=== PATIENT | female | born 1975 | race Caucasian/White ===

== ENCOUNTER → 2021-03-13 13:42 | Outpatient (CLI) | payer BC, SELFPAY ==
--- NOTE | ~2021-03-13 | MM_ITS ---
EXAMINATION: MM screening crissy BI w izabela HISTORY: Screening TECHNIQUE: Craniocaudal and mediolateral oblique 3-D tomosynthesis images were obtained and synthetic 2-D images were generated. CAD analysis was submitted and interpreted. COMPARISON: Comparison to multiple prior studies sequentially, with oldest reviewed study dated 07/10. BREAST PARENCHYMAL COMPOSITION: The breasts are heterogeneously dense, which may obscure small masses . FINDINGS: There is no evidence of suspicious mass, calcification, or architectural distortion to sugg est malignancy in either breast. There has been no suspicious interval change. IMPRESSION: 1. No mammographic evidence of malignancy. 2. Recommend routine screening mammography in one year. BI-RADS Category 1: Negative Reviewed, dictated and finalized at location A.
== END ==
DX: Z12.31 Encounter for screening mammogram for malignant neoplasm of breast (principal)
CPT/HCPCS: 77063; 77067

== ENCOUNTER → 2022-03-17 13:12 | Outpatient (CLI) | payer BC, SELFPAY ==
--- NOTE | ~2022-03-17 | MM_ITS ---
EXAMINATION: MM screening [facility] BI w izabela HISTORY: Screening mammogram TECHNIQUE: Craniocaudal and mediolateral oblique 3-D tomosynthesis images were obtained and synthetic 2-D images were generated. CAD analysis was submitted and interpreted. COMPARISON: 03/13/2021, 10/20/2017, 09/26/2017 BREAST PARENCHYMAL COMPOSITION: The breasts are extremely dense, which lowers the sensitivity of mamm ography. FINDINGS: Right breast asymmetries have a similar appearance to comparison mammograms, consistent wit h benign findings. There is no suspicious mass, calcification, or architectural distortion to suggest malignancy in either breast. There has been no suspicious interval change. IMPRESSION: 1. No mammographic evidence of malignancy. 2. Recommend routine screening mammography in one year. BI-RADS Category 2: Benign finding(s). Reviewed, dictated and finalized at location A.
== END ==
PROVIDERS: PCP Family Medicine; Visit Provider Nurse Practitioner Obstetrics & Gynecology
DX: Z12.31 Encounter for screening mammogram for malignant neoplasm of breast (principal)
CPT/HCPCS: 77063; 77067

== ENCOUNTER → 2023-08-10 14:31 | Outpatient (CLI) | payer BC, SELFPAY ==
--- NOTE | ~2023-08-10 | MM_ITS ---
EXAMINATION: MM screening crissy BI w izabela HISTORY: Screening mammogram TECHNIQUE: Craniocaudal and mediolateral oblique 3-D tomosynthesis images were obtained and synthetic 2-D images were generated. Bilateral rotated lateral CC views. CAD analysis was submitted and interp reted. COMPARISON: 03/17/2022,03/13/2021 bilateral screening mammogram examinations BREAST PARENCHYMAL COMPOSITION: The breasts are heterogeneously dense, which may obscure small masses . FINDINGS: There is no evidence of suspicious mass, calcification, or architectural distortion to sugg est malignancy in either breast. There has been no suspicious interval change. IMPRESSION: 1. No mammographic evidence of malignancy. 2. Recommend routine screening mammography in one year. BI-RADS Category 1: Negative Reviewed, dictated and finalized at location L.
== END ==
PROVIDERS: PCP Family Medicine
DX: Z12.31 Encounter for screening mammogram for malignant neoplasm of breast (principal)
CPT/HCPCS: 77063; 77067

== ENCOUNTER 2024-04-24 14:42 | Outpatient (CLI) | payer BC, SELFPAY ==
--- NOTE | ~2024-04-24 | US_ITS ---
Renal-Bladder ultrasound Clinical History: Elevated creatinine Technique: Real-time sonographic imaging of the kidneys and urinary bladder was performed. Findings: The right kidney measures 10.9 cm in length and the left kidney measures 8.2 cm. There is n o hydronephrosis or renal calculus identified. Renal cortical echogenicity is within normal limits. N o renal mass lesion is identified. The urinary bladder is moderately distended at the time of this exam. No intraluminal echoes are iden tified. No abnormal wall thickening is seen. Impression: Unremarkable ultrasound of the kidneys and urinary bladder. Reviewed, dictated and finalized at location M. Impression: Unremarkable ultrasound of the kidneys and urinary bladder.
== END 2024-04-24 14:43 ==
PROVIDERS: PCP Family Medicine; Visit Provider Family Medicine
DX: R79.89 Other specified abnormal findings of blood chemistry (principal)
CPT/HCPCS: 76775

== ENCOUNTER 2024-05-10 10:17 | Outpatient (CLI) | payer BC, SELFPAY ==
--- NOTE | ~2024-05-10 | US_ITS ---
EXAMINATION: US retroperitoneal duplex ltd DATE: 05/10/2024 10:46 INDICATION: Elevated serum creatinine. TECHNIQUE: Multiple grayscale, color Doppler, and pulsed Doppler images of the kidneys and renal gerard leona were obtained. COMPARISON: None. FINDINGS: The aorta peak systolic velocity is 115 cm/s. The right renal artery peak systolic velocity is 151 cm /s in the proximal segment. The left renal artery peak systolic velocity is 120 cm/s in the proximal segment. IMPRESSION: 1. No Doppler evidence of renal artery stenosis. Reviewed, dictated and finalized at location A.
== END 2024-05-10 10:18 ==
PROVIDERS: PCP Family Medicine; Visit Provider Family Medicine
DX: R79.89 Other specified abnormal findings of blood chemistry (principal)
CPT/HCPCS: 93976

== ENCOUNTER 2024-08-14 14:13 | Outpatient (CLI) | payer BC, SELFPAY ==
--- NOTE | ~2024-08-14 | MM_ITS ---
EXAMINATION: MM screening crissy BI w izabela HISTORY: Screening TECHNIQUE: Craniocaudal and mediolateral oblique 3-D tomosynthesis images were obtained and synthetic 2-D images were generated. CAD analysis was submitted and interpreted. COMPARISON: Comparison to multiple prior studies sequentially, with oldest reviewed study dated 09/09. BREAST PARENCHYMAL COMPOSITION: Dense: The breasts are heterogeneously dense, which may obscure small masses. FINDINGS: There are developing asymmetries in the outer aspect of the right breast and medial aspect of the left breast. IMPRESSION: 1. Developing bilateral breast asymmetries. 2. Additional mammographic views and possible breast ultrasound are recommended. BI-RADS Category 0: Incomplete: Needs additional imaging evaluation. Reviewed, dictated and finalized at location B. ER COURIER IMPRESSION: 1. Developing bilateral breast asymmetries. 2. Additional mammographic views and possible breast ultrasound are recommended . BI-RADS Category 0: Incomplete: Needs additional imaging evaluation.
== END 2024-08-14 14:14 | disposition home or self-care (01) ==
LOC: MICIMG 14:14
PROVIDERS: PCP Family Medicine; Visit Provider Family Medicine
DX: Z12.31 Encounter for screening mammogram for malignant neoplasm of breast (principal); R92.8 Other abnormal and inconclusive findings on diagnostic imaging of breast
CPT/HCPCS: 77063; 77067

== ENCOUNTER 2024-09-18 07:57 | Outpatient (CLI) | payer BC, SELFPAY ==
--- NOTE | ~2024-09-18 | MMUS_ITS ---
EXAMINATION: MM diagnostic crissy BI w izabela, US breast BI complete HISTORY: Follow-up bilateral breast asymmetries TECHNIQUE: Additional 3-D tomosynthesis images of the breasts were performed and synthetic 2-D images were generated. CAD analysis was submitted and interpreted. High resolution bilateral complete breas t ultrasound was performed. COMPARISON: Comparison to multiple prior studies sequentially, with oldest reviewed study dated 09/10. BREAST PARENCHYMAL COMPOSITION: Dense: The breasts are extremely dense, which lowers the sensitivity of mammography. FINDINGS: MAMMOGRAPHIC FINDINGS: There are no suspicious masses, calcifications or architectural distortion in either breast to sugges t malignancy. ULTRASOUND: Complete US of all 4 quadrants of the breast/s and retroareolar region was reviewed. Right breast: At 9:00, 3.5 cm from the nipple there is a 5 mm cyst. No suspicious sonographic abnorma lities of the right breast. Left breast: At 2:00, 3.5 cm from the nipple there are 2 adjacent oval hypoechoic masses, largest elva suring 5 mm, likely benign. At 6:00, 2 cm from the nipple there are 2 adjacent simple cysts measuring up to 9 mm. At 10:00, 3 cm from the nipple there is a 7 mm simple cyst. IMPRESSION: 1. No evidence for malignancy in the right breast. Probable benign left breast masses at 2:00, 3.5 cm from the nipple. 2. Recommend 6 month follow-up Limited left breast ultrasound BI-RADS category 3, probably benign findings. Reviewed, dictated and finalized at location B. RITY GUARD IMPRESSION: 1. No evidence for malignancy in the right breast. Probable benign left breast masses at 2:00, 3.5 cm from the nipple. 2. Recommend 6 month follow-up Limited left breast ultrasound BI-RADS category 3, probably benign findings.
== END 2024-09-18 07:58 | disposition home or self-care (01) ==
LOC: MICIMG 07:59
PROVIDERS: PCP Family Medicine; Visit Provider Family Medicine
DX: R92.8 Other abnormal and inconclusive findings on diagnostic imaging of breast (principal)
CPT/HCPCS: 76641; 77062; 77066; G0279

== ENCOUNTER 2024-12-03 10:04 | Outpatient (CLI) | payer BC, SELFPAY ==
--- NOTE | ~2024-12-03 | MR_ITS ---
EXAMINATION: MR breast BI wo/w con INDICATION: Dense breast tissue TECHNIQUE: Axial VIBRANT pre and dynamic post contrast, Sagittal VIBRANT post contrast, Axial T2 STIR ASSET COMPARISON: None CONTRAST: Multihance, 15 cc BREAST COMPOSITION: Extreme fibroglandular tissue FINDINGS: RIGHT BREAST: There is moderate to marked background parenchymal enhancement. No abnormal enhancement is present after contrast administration. No pathologically enlarged axillary or internal mammary ly mph nodes are identified. LEFT BREAST: There is moderate to marked background parenchymal enhancement. No abnormal enhancement is present after contrast administration. No pathologically enlarged axillary or internal mammary lym ph nodes are identified. IMPRESSION: No distinct evidence for malignancy. BI-RADS Category 1: Negative Reviewed, dictated and finalized at location . ATIENT ADMITTING CLERK
--- OUTSIDE RECORDS SUMMARY | 2024-12-03 11:17 | XMS_ITS ---
Author Organization [facility] Address [address] [place] [id number] Care Team Providers Care Digital Court Reporter Name Role Phone Lay Bauer Primary Care Provider [phone] Migration, Provider Unavailable Unavailable Allergies Allergen (clinical drug ingredient) Drug/Non Drug Allergy documented on EMR Reaction Allergy Type Onset Date Status coconut allergenic extract Coconut (Diagnostic) Unknown Drug Allergy 01/28/2022 Active REASON FOR VISIT EMR-[facility] Medications Medication SIG (Take, Route, Frequency, Duration) Notes Start Date End Date Status Triamcinolone Acetonide 0.5 % External two times a day; Duration: 0 10/29/2022 Active Allergy oral; Duration: 0 *Pick strength-form from [facility]* 06/16/2023 Active Encounters Encounter Location Date Provider Diagnosis [address] [address] 09/09/2024 Provider Migration Plan Of Treatment Next Appt Details Provider Name:Lay Bauer , 04/03/2025 02:30:00 PM, [address] [place] [address], [phone], [phone] Progress Notes * Livia AREVALO LDOB: 7 (49 yo F)Acc No.[id number]:09/09/2024 Patient: Livia MOBLEY :1975 A ge:49 Y S ex:Female Phone: Address:[address] [place] [address], [place], [address] Subjective: * Chief Complaints: * E MR-Frederic * Medical History: * Surgical History: * Hospitalization/Major Diagno stic Procedure: * Social History: M igrated Social History: [...] (Diagnostic): Allergy - Onset Date 01/28/2022 Objective: * Physical Examination: Plan: * Treatment: * Procedure Codes: Billing Information: * Visit Code: * Procedure Codes: * * Date:
--- OUTSIDE RECORDS SUMMARY | 2024-12-03 11:17 | XMS_ITS | Encounter Summary ---
Author Organization [facility] Address [address] [place] [address] Care Team Providers Care Manufacturing Process Engineer Name Role Phone Not Found, Stl Primary Care Provider Unavailabl e Encounter Details Date Type Department Care Team (Late st Contact Info) Description 08/16/2007 Outpatient Historical [facility] Maternal and Ground Floor [facility] [address] [place] [address] Francisco Walton MD [address] [place] [address] Social History Tobacco Use Types Packs/Day Years Used Date Smoking Tobacco: Never Assessed Comments Unknown Sex and Gender Information Value Date Recorded Sex Assigned at Not on file 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
--- OUTSIDE RECORDS SUMMARY | 2024-12-03 11:18 | XMS_ITS | Data Portability ---
Author Organization [facility] [employer] , [facility] Address [address] [place] [address] Care Team Providers Care Stunt Person Name Role Phone [facility] Investigative Agent Assessment No assessment recorded. Plan of Treatment Reminders Order Date Submit Date Provider Last Modified By Organization Details Last Modified Time Details Appointments None record ed. Lab biopsy , tissue 2023 024 [facility], [address] [place], [address], 4 11:46:59 biopsy , tissue 2023 024 [facility], [address] [place], [address], 4 11:46:59 biopsy , tissue 2023 024 [facility], [address] [place], [address], 4 20:57:00 pregna ncy test, urine 2023 024 [facility], [facility] [place], [address], 4 14:54:11 CT + NG DNA, PCR, unspec ified specim en 2023 024 [facility], [address] [place] [address], [address], 4 09:26:05 HPV E6+E7 mRNA, qualit ative PCR, cervix 2023 024 [facility], [address] [place], [address], 4 14:05:58 unlist ed lab - Pap reflex hold 2023 024 [facility], [address] [place], [address], 4 16:05:42 pap, LB 2023 024 [facility], [address] [facility] [place], [address], 4 11:02:48 bacter ial vagino sis + vagini tis panel, vagina l 2023 024 [facility] [employer] [facility], [address] [place], [address], 4 09:32:08 wet mount 2023 024 [email or web address] [facility], [address] [place], [address], 4 16:54:12 Referral None record ed. Procedures None record ed. Surgeries None record ed. Imaging MRI, breast , bilate ral, w/wo contra st 2024 025 [facility], [address], [place], [address], 5 04:07:20 US, transv aginal 2023 024 [email or web address] Not available 4 16:26:04 MAMMO, screen ing, digita l, bilate ral 2023 024 [facility], [address], [place], [address], 16:25:58 Medication Orders None record ed. Patient TargetsNo targets recorded. Patient Instructions Encounter Date Encounter Id Patient Instructions Last Modified By Organization Details Last Modified Time 02/27/2024 [id number] Patient Health Questionnaire-9* [email or web address] Not available 03/09/2024 15:56:26 body mass index: care instructions [email or web address] Not available 02/27/2024 16:21:12 03/09/2024 [id number] - Begin taking the progesterone-only pill for four weeks - Schedule colposcopy and IUD removal in four weeks - Monitor bleeding after starting progesterone-only pill and report any concerns - Follow up on the results of the colposcopy and discuss further treatment options if necessary Not available 03/09/2024 17:43:07 04/19/2024 [id number] colposcopy: what to expect at home Not available 04/19/2024 14:51:11 IUD removal: car e instructions Not available 04/19/2024 14:51:11 Reason for Referral None Reported. Results Created Date Observation Date Name Description Value Unit Range Abnormal Flag Note LastModifiedBy Organization Detail LastModifiedTime 04/24/2004/24/2024 TISSU E PATHO LOGY clinical information ASCUS Not Available [facility] [employer] [address] [address] [place], [address], 04/24/2024 20:57:00 04/24/20 24 04/24/2024 TISSU E PATHO LOGY pathologist Luisito Chavez M.D., Board Certi fied in Anato agnes Patho logy and Clini danielle Patho logy. (elec troni romario murray) Not Available [facility] [address] [address] [place], [address], 04/24/2024 20:57:00 04/24/20 24 04/24/2024 TISSU E PATHO LOGY A source Cervi x, 6 o'mansoor ck, biops y Not Available [facility] [address] [address] [place], [address], 04/24/2024 20:57:00 04/24/20 24 04/24/2024 TISSU E PATHO LOGY A gross description Speci men is recei ish in 10% neutr al buffe red forma wiley, label ed with multi ple patie nt ident ifier s and consi sts of one fragm ent of tissu e measu ring 0.2 x 0.2 x 0.2 cm, irreg ular in shape and yello w-whi te in color . The speci men is entir ana submi tted in one casse tte. [facility]i [facility]. Gross exam( s) perfo rmed at: [facility] [place] [address] [place] [address] [place] [address] Labor atory Direc tor: GEORGINA Rivera MD Not Available [facility] [address] [address] [place], [address], 04/24/2024 20:57:00 04/24/20 24 04/24/2024 TISSU E PATHO LOGY A diagnosis Benig n endoc ervic al tissu e showi ng acute and chron ic infla mmati on. No trans forma tion zone compo nent prese nt. No dyspl kelly or malig max . Not Available [facility] [address] [address] [place], [address], 04/24/2024 20:57:00 04/24/20 24 04/24/2024 TISSU E PATHO LOGY B source Cervi x, 12 o'mansoor ck, biops y Not Available [facility] [address] [address] [place], [address], 04/24/2024 20:57:00 04/24/20 24 04/24/2024 TISSU E PATHO LOGY B gross description Speci men is recei ish in 10% neutr al buffe red forma wiley, label ed with multi ple patie nt ident ifier s and consi sts of one fragm ent(s ) of tissu e and mucoi d mater ial aggre gatin g to 0.5 x 0.5 x 0.2 cm, irreg ular in shape and rausch-b rown in color . The speci men is entir ana submi tted in one casse tte. The [facility]i [facility]. Not Available [facility] [address] [address] [place], [address], 04/24/2024 20:57:00 04/24/20 24 04/24/2024 TISSU E PATHO LOGY B diagnosis Parti ally denud ed epith elium showi ng dyspl astic lord es, see comme nt. Trans forma tion zone compo nent prese nt. 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 Howev er, becau se this epith elium is parti ally denud ed and does not appea r to be full thick ness, a more advan denise lesio n canno t be ruled out. Not Available [facility] [address] [address] [address] , [place], [address], 04/24/2024 20:57:00 04/24/20 24 04/24/2024 TISSU E PATHO LOGY C source Endoc ervix , curet tage Not Available [facility] [address] [address] [place], [address], 04/24/2024 20:57:00 04/24/20 24 04/24/2024 TISSU E PATHO LOGY C gross description Speci men is recei ish in 10% neutr al buffe red forma wiley, label ed with multi ple patie nt ident ifier s and consi sts of multi ple fragm ents of mucoi d mater ial aggre gatin g to 1.5 x 1.0 x 0.1 cm, irreg ular in shape and rausch-b rown in color . The speci men is entir ana submi tted in one casse tte. The speci men site is taken from the conta iner. 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 Not Available [facility] [address] [place], [address], 04/24/2024 20:57:00 04/24/20 24 04/24/2024 TISSU E PATHO LOGY C comment Endoc ervic al epith elial cells are prese nt in the speci men. NO COLLE CTION DATE RECEI ISH. WE HAVE USED THE DATE THE SPECI MEN WAS RECEI ISH BY THIS LABOR ATORY THE COLLE CTION DATE. IF THIS IS INCOR RECT, PLEAS E CONTA CT CLIEN T SERVI AYESHA. PHONE NUMBE R: [phone] Not Available [facility] [address] [place], [address], 04/24/2024 20:57:00 01/27/20 24 01/31/2024 VAGIN ITIS PLUS STD PANEL bacterial vaginosis BV neg negati ve normal Not Available [facility] [address] [place], [address], 02/01/2024 09:32:08 01/27/20 24 01/31/2024 VAGIN ITIS PLUS STD PANEL osei species C. spp POS negati ve abnormal Not Available [address], [address], 02/01/2024 09:32:08 01/27/20 24 01/31/2024 VAGIN ITIS PLUS STD PANEL osei glabrata C. gla neg negati ve normal Not Available [address], [address], 02/01/2024 09:32:08 01/27/20 24 01/31/2024 VAGIN ITIS PLUS STD PANEL trichomonas vaginalis CV/TV TRICH neg negati ve normal Not Available [address], [address], 02/01/2024 09:32:08 01/27/20 24 01/31/2024 VAGIN ITIS PLUS STD PANEL chlamydia trachomatis CT neg negati ve normal This repor t is inten ded for us in clini danielle monit oring and manag ement of patie nts. It is not inten ded for use in medic al-le gal appli catio n. Not Available [address], [address], 02/01/2024 09:32:08 01/27/20 24 01/31/2024 VAGIN ITIS PLUS STD PANEL neisseria gonorrhoeae GC neg negati ve normal This repor t is inten ded for us in clini danielle monit oring and manag ement of patie nts. It is not inten ded for use in medic al-le gal appli catio n. Not Available [address], [address], 02/01/2024 09:32:08 01/27/20 24 01/27/2024 wet mount Trichomonias is None Not Available [facility] [address] [place] [address], [address], 01/27/2024 16:53:38 01/27/20 24 01/27/2024 wet mount Yeast None Not Available [address] [place], [address], 01/27/2024 16:53:38 01/27/20 24 01/27/2024 wet mount Clue Cells None Not Available [facility] [place], [address], 01/27/2024 16:53:38 02/27/20 24 02/27/2024 CT/NG CT/NG Merged to [id number] Not Available [facility] ol [address] [place], [address], 02/28/2024 09:26:05 02/27/20 24 02/28/2024 CT/NG chlamydia trachomatis CT neg negati ve normal This repor t is inten ded for us in clini danielle monit oring and manag ement of patie nts. It is not inten ded for use in medic al-le gal appli catio n. Not Available [facility] [address] [place], [address], 02/29/2024 14:05:58 02/27/20 24 02/28/2024 CT/NG neisseria gonorrhoeae GC neg negati ve normal This repor t is inten ded for us in clini danielle monit oring and manag ement of patie nts. It is not inten ded for use in medic al-le gal appli catio n. Not Available [facility] [address] [place], [address], 02/29/2024 14:05:58 02/27/20 24 02/29/2024 HPV HIGH RISK HPV high risk Negati ve negati ve normal The HPV High Risk assay is inten ded for use as co-te sting with cytol ogy and not as a subst itute for regul ar cervi danielle cytol ogy scree rik. This assay is not inten ded for use as a scree rik devic e for women under age 30 with kimberly l cervi danielle cytol ogy. Not Available [facility] [address] [place], [address], 02/29/2024 14:05:58 02/27/20 24 03/02/2024 THINP REP TIS PAP clinical information: normal None given Not Available [address], [address], 03/02/2024 11:02:48 02/27/20 24 03/02/2024 THINP REP TIS PAP LMP: normal None given Not Available [address], [address], 03/02/2024 11:02:48 02/27/20 24 03/02/2024 THINP REP TIS PAP prev. Pap: normal None given Not Available [address], [address], 03/02/2024 11:02:48 02/27/20 24 03/02/2024 THINP REP TIS PAP prev. BX: normal None given Not Available [address], [address], 03/02/2024 11:02:48 02/27/20 24 03/02/2024 THINP REP TIS PAP source: normal Cervi x Not Available [address], [address], 03/02/2024 11:02:48 02/27/20 24 03/02/2024 THINP REP TIS PAP statement of adequacy: normal Satis facto ry for evalu ation . Endoc ervic al/tr ansfo rmati on zone compo nent prese nt. Age and/o r menst rual statu s not provi ded Not Available [address], [address], 03/02/2024 11:02:48 02/27/20 24 03/02/2024 THINP REP TIS PAP general categorizati on: abnormal Cytol ogy Resul ts: Epith elial Cell Abnor malit y Not Available [address] [address] [place], [address], 03/02/2024 11:02:48 02/27/20 24 03/02/2024 THINP REP TIS PAP interpretati on/result: abnormal Atypi danielle Squam ous Cells of Undet ermin ed Signi fican ce (ASC- US) Not Available [address] [address] [place], [address], 03/02/2024 11:02:48 02/27/20 24 03/02/2024 THINP REP TIS PAP comment: normal This Pap test has been evalu ated with compu ter darrick agustina techn ology . Sugge st clini danielle corre latio n and follo w-up as clini yuki appro priat e Not Available [address] [address] [place], [address], 03/02/2024 11:02:48 02/27/20 24 03/02/2024 THINP REP TIS PAP cytotechnolo gist: normal TMK, CT( CP) CT scree rik locat ion: [address] [address] [place] [address] Not Available [address] [address] [place], [address], 03/02/2024 11:02:48 02/27/20 24 03/02/2024 THINP REP TIS PAP pathologist: normal Kimberly bautista M.D., Board Certi fied in Anato agnes Patho logy and Cytop athol ogy. Phone : [phone] (elec troni c signa ture) Not Available [address] [address] [place], [address], 03/02/2024 11:02:48 02/27/20 24 03/02/2024 THINP REP TIS PAP comment EXPLA NATOR Y NOTE: The Pap is a scree rik test for cervi danielle cance r. It is not a diagn ostic test and is subje ct to false negat nils and false posit nils resul ts. It is most relia ble when a satis facto ry sampl e, regul yandel obtai jake, is submi tted with relev ant clini danielle findi ngs and histo ry, and when the Pap resul t is evalu ated along with histo remi and curre nt clini danielle infor matio n. Not Available [facility] [address] [address], [place], [address], 03/02/2024 11:02:48 04/19/20 24 04/19/2024 pregn chuy test, urine HCG negati ve Not Available [facility] [address] [place], [address], 04/18/2024 14:37:10 03/09/20 24 03/09/2024 , pablo rivera No observ ation record ed. [facility] [address], [place], [address], 03/09/2024 18:08:07 Result Notes None recorded. Problems Name Problem SNOMED Code Status Onset Date Resolution Date Notes Provider Name and Address Organization Details Recorded Time Insertio n of intraute rine contrace ptive device done 58203162265 9109 Completed 201703/24/2020 Encounte r for insertio n of intraute rine contrace ptive device; Location : None Severity : Moderate Progress : Stable Added By: Steph Mathew Add to Current Problems : YES ProblemS tatus: Current Encounte r for insertio n of intraute rine contrace ptive device; Severity : Moderate Progress : Stable Added By: Steph Mathew Add to Current Problems : NO ProblemS tatus: Resolve Not Available [employer] 1 19:39:44 Insertio n of intraute rine contrace ptive device Active 2017 Belen Martini MD [address] [facility], [place], [address] , [facility] - [employer] [facility] 4 17:43:20 Uses contrace ption [id number] Completed 201611/26/2017 Contrace ption advice, other method; Location : None Severity : Moderate Progress : Stable Added By: Allison Lemus Add to Current Problems : NO ProblemS tatus: Resolve Not Available [facility] 1 01:27:04 Mammogra phy abnormal [id number] Completed 201703/24/2020 Abnormal mammogra m, unspecif ied; Location : None Progress : Stable Added By: Bill Archer Add to Current Problems : YES ProblemS tatus: Current Abnormal mammogra m, unspecif ied; Progress : Stable Added By: Bill Archer Add to Current Problems : NO ProblemS tatus: Resolve Not Available [facility] 2 20:48:06 Contrace ptive sheath status [id number] Completed 201611/26/2017 Contrace ption advice, other method; Location : None Progress : Stable Added By: Allison Lemus Add to Current Problems : NO ProblemS tatus: Resolve Encounte r for initial prescrip tion of other contrace ptives; Progress : Stable Added By: Allison Lemus Add to Current Problems : NO ProblemS tatus: Resolve Not Available [facility] 2 20:48:06 Problem Notes None recorded. Procedures Surgical History Date Name Laterality Status Provider Name and Address Organization Details Recorded Time 04/19/20 24 Colposcopy - Cervix completed Belen Martini MD [address] [place] [address], [address], [facility] [employer] [facility] 04/19/2024 20:12:47 04/19/20 24 IUD Removal completed Belen Martini MD [address] [place] [address], [phone], [facility] [employer] [facility] 04/19/2024 20:12:56 02/27/20 24 Date of Last Pap Smear completed Mukesh Naylor [facility] [employer] [facility] 03/09/2024 15:39:23 08/10/20 23 Most Recent Mammogram completed Mima Hodges [facility] [employer] [facility] 02/27/2024 15:13:44 06/15/20 22 Colposcopy - Cervix completed Anja B Schifano, NP [address] [facility], [place], [address], [facility] [employer] IV 03/28/2022 19:01:31 C Section completed Nicci bates, NP [address] [facility], [place], [address], [facility] [employer] IV 02/27/2023 10:46:23 Imaging Results Imaging Date Name Status LastModified by Organiz ation Details LastModified Time 03/09/2024 US, pelvis completed [facility] [address], [place], [address], 03/09/2024 18:08:07 Procedure Notes None recorded. Medical Equipment None Reported. Allergies No known drug allergies Medications Name Sig Start Date Stop Date Status Note LastModified by Organization Details LastModified Time trazodone 50 mg tablet 02/17 completed Not Available Not Available Not Available fluconazo le 150 mg tablet take 1 tablet by mouth now and repeat in 3 days 02/26 completed Not Available Not Available Not Available famotidin e 40 mg tablet 01/26 completed Not Available Not Available Not Available metronida zole 500 mg tablet Take 1 tab by mouth twice daily x 7 days 02/17 completed Not Available Not Available Not Available valacyclo vir 500 mg tablet active Not Available Not Available No t Available pantopraz ole 40 mg tablet,de layed release 01/26 completed Not Available Not Available Not Available sertralin e 50 mg tablet 11/05 completed Not Available Not Available Not Available bupropion HCl XL 300 mg 24 hr tablet, extended release 11/05 completed Not Available Not Available Not Available Ortho-Cyc linsey (28) 0.25 mg-35 mcg tablet Take 3 tablets daily for 3 days then 2 tablets daily for 3 days then 1 tablet daily for remainde r of active pill pack 01/27 completed Ortho Cyclen 28 35mcg/0. 25mg Tablet RxNorm: 129060 Allow Substitu tion: True Refill Denied: No Not Available Not Available Not Available Zoloft 03/24 completed Zoloft RxNorm: 06192 Allow Substitu tion: True Refill Denied: No Refill DateOccu rred: 11/28/19 Edited by: Mariana Spivey ) on 03/24/20 Stopped by: Mariana Spivey ) on 03/24/20 Not Available Not Available Not Available acyclovir 03/24 completed Acyclovi r RxNorm: 105250 Allow Substitu tion: True Refill Denied: No Refill DateOccu rred: 11/28/19 Edited by: jayesh( Mariana Lee ) on 03/24/20 Stopped by: jayesh( Mariana Lee ) on 03/24/20 Not Available Not Available Not Available Valtrex 02/17 completed Valtrex RxNorm: 854356 Refill Denied: No Refill DateOccu rred: 03/24/20 Edited by: Mariana Spivey ) on 03/24/20 Stopped by: Mariana Spivey ) on Not Available Not Available Not Available Wellbutri n SR 03/24 completed Wellbutr in SR RxNorm: 954777 Allow Substitu tion: True Refill Denied: No Refill DateOccu rred: 11/28/19 Edited by: Mariana Spivey ) on 03/24/20 Stopped by: Mariana Spivey ) on Not Available Not Available Not Available Mirena 11/05 completed Mirena RxNorm: 6373 Allow Substitu tion: True Refill Denied: No Refill DateOccu rred: 11/28/19 Edited by: Mariana Spivey ) on 03/24/20 Stopped by: Mariana Spivey ) on Not Available Not Available Not Available Dasetta 1/35 (28) 1 mg-35 mcg tablet take 3 pills daily x 3 days, then 2 pills daily for 3 days, then on pill daily for the remainde r of the active pills. 11/17 completed Dasetta 1/35 35mcg/1m g Tablet RxNorm: 7845026 Allow Substitu tion: True Refill Denied: No Not Available Not Available Not Available Ashlyna 0.15 mg-30 mcg (84)/10 mcg(7) tablets,3 month dose pack Take 1 tablet(s ) by mouth daily as directed . 09/27 completed Ashlyna Extended Cy Tablet Allow Substitu tion: True Refill Denied: No Not Available Not Available Not Available Ashlyna Take 1 tablet(s ) by mouth daily as directed . 10/20 completed Ashlyna Extended Cy Tablet Allow Substitu tion: True Refill Denied: No Not Available Not Available Not Available bupropion HCl 150 mg tablet,12 hr sustained -release( smoking deterrent ) Take 1 tablet every day by oral route. active Not Available Not Available No t Available Slynd 4 mg (28) tablet Take 1 tablet every day by oral route. active Not Available Not Available No t Available Vitals Date Recorded Body height Systolic blood pressure Diastolic blood pressure Provider Name and Address Organization Details Last Updated DateTime 01/27/2024 162.56 cm 108 mm[Hg] 64 mm[Hg] Stephanie Allan [facility] [employer] [facility] 01/27/2024 16:35:04 Date Recorded Body height Body mass index (BMI) Body weight Systolic blood pressure Diastolic blood pressure Provider Name and Address Organization Details Last Updated DateTime 02/27/2024 162.56 cm 27.8 kg/m2 49713.9 6 g 98 mm[Hg] 58 mm[Hg] Mima Hodges [facility] [employer] [facility] 4 15:20:56 Date Recorded Body height Body mass index (BMI) Body weight Body temperature Systolic blood pressure Diastolic blood pressure Provider Name and Address Organization Details Last Updated DateTime 162.56 cm 28.5 kg/m2 16879.6 1 g 97.9 [degF] 118 mm[Hg] 74 mm[Hg] Mukesh Naylor [facility] [employer] [facility] 4 15:49:34 Date Recorded Body height Body mass index (BMI) Body weight Provider Name and Address Organization Details Last Updated DateTime 04/19/2024 162.56 cm 28.5 kg/m2 12333.05 g Sandra Thorne [place] 04/19/2024 14:20:34 Date Recorded Body height Body mass index (BMI) Body weight Systolic blood pressure Diastolic blood pressure Provider Name and Address Organization Details Last Updated DateTime 11/05/2024 162.56 cm 27.5 kg/m2 20435.78 g 118 mm[Hg] 80 mm[Hg] Ita Thorne [facility] [employer] IV 10:47:33 Social History Question Answer Notes LastModified by Urban Ladder Details LastModified Time Tobacco Smoking Status Never Smoker Mariana Sal[place]lister [place], [place] [employer] 02/17/2022 09:51:17 What Is Your Level Of Alcohol Consumption? Occasional Information not available 02/17/2022 If You Are , What Was Your Level Of Alcohol Consumption Prior To ? Occasional [email or web address] Information not available 03/24/2022 Are You Blind Or Do You Have Difficulty Seeing? No Information not available 02/17/2022 Are You Currently Employed? Yes [email or web address] Information not available 02/23/2023 Are You Deaf Or Do You Have Serious Difficulty Hearing? No Information not available 02/17/2022 What Type Of Diet Are You Following? REGULAR Information not available 02/17/2022 What Is The Highest Grade Or Level Of School You Have Completed Or The Highest Degree You Have Received? [id number] [email or web address] Information not available 02/23/2023 How Many Children Do You Have? 3 Information not available 02/17/2022 What Is Your Relationship Status? [email or web address] Information not available 01/27/2024 Are You Sexually Active? Yes Information not available 02/17/2022 Do You Use Any Illicit Or Recreational Drugs? No Information not available 02/17/2022 Do You Or Have You Ever Used Any Other Forms Of Tobacco Or Nicotine? No Information not available 02/17/2022 Sex: Female Functional Status Question Answer Note LastModified by Urban Ladder Details LastModified Time What is your exercise level? Occasional Information not available 02/17/2022 Mental Status None recorded. Family History Relationship Description Onset Age of this Age Resolved Age Notes LastModified by Organization Details LastModified Time Father No current problems or disability Not available 08/2022 09:50:48 Mother No current problems or disability Not available 08/2022 09:50:48 Maternal Aunt Malignant tumor of breast 67 awittler Not available 2024 11:18:27 Unspecified Relation Malignant tumor of breast Matern al Great Aunt awittler Not available 11/05/2024 11:18:27 Notes:Concepción Pradhan Lifetime Risk without MyRisk Testin.7% Medical History Condition Response Other Cancer N High Blood Pressure N Colon Cancer N Cytomegalovirus N Hyperthyroidism N Herpes (HSV) Y Breast Cancer N Blood Transfusion N MRSA N Lung Cancer N Hypothyroidism N Depression Y Incontinence N Panic Attacks N Neurological Disorder N Deep Vein Thrombosis Y Anxiety Disorder N Autoimmune disease N Arthritis N Tuberculosis/Positive PPD N Shingles N Polycystic Ovarian Syndrome N Cervical Cancer N Chlamydia N Hematuria N Stroke N Varicosities N Crohn's Disease N Seasonal allergies N Alzheimer's/Dementia N COPD/Emphysema N HPV/Genital Warts N Endometriosis N IBS (Irritable Bowel Syndrome) N History of Abnormal Pap Y High Cholesterol N Liver Disease N Kidney Infection N Fibromyalgia N Ulcer N Kidney Disease N HIV N Gallbladder disease N Sickle Cell Disease/Trait N Von Willebrand disease N ADD/ADHD N Eating Disorder N Anemia N Diabetes Mellitus (non-insulin dependent ) N Ovarian Problems N Multiple Sclerosis N Gonorrhea N Frequent Urinary Tract infections N Osteopenia N Headaches/migraines N GERD (reflux) N Ovarian Cancer N Diabetes (insulin dependent) N Seizures/Epilepsy N Fibroids N Heart Attack N Asthma N Lupus N Endometrial Cancer N Rubella N Blood Clotting Disorder N Bipolar Disorder N Diabetes Mellitus (during ) N Ulcerative Colitis N Hepatitis N Heart Disease N Pulmonary Embolism N RPR N Chicken Pox N Osteoporosis N Gynecological History Statement/Question Response Flow Moderate Date of last HPV 02/27/2024 Date of LMP 03/27/2024 HPV Vaccine N Duration of Flow (days) 5 Most Recent Mammogram 08/10/2023 Current Control Method BCPs Age at Menarche 13 Date of Last Colonoscopy Most Recent Bone Density Frequency of Cycle (Q days) 25 Date of Last Pap Smear 02/27/2024 Obstetrics History GPAL:G 4 P 2 1 0 3 Type Value Full Term 2 Premature 1 Living 3 Total 4 Past Encounters Encounter ID Performer Location Encounter Start Date Encounter Closed Date Diagnosis/Indication Diagnosis SNOMED-CT Code Diagnosis ICD10 Code Diagnosis Note [id number] BANDAR [facility] [address] [place] [address] 02/17/2022 09:41:08 02/17/2022 13:46:45 Gynecologic examination [id number] Z01.419 Pt educated on recommenda tion for annual WWE over 21 y/o for breast and ovarian cancer screenings . Exam WNL. Plan for F/U PRN or for next WWE. Screening for malignant neoplasm of cervix 374212522 Z12.4 ASCCP guidelines reviewed with pt. Pap collected and sent. Further POC pending lab result review. Pt states understand ing of POC. Screening for cancer 158 32985 Z19.1 Plan to discuss GI referral at pt turns 47 y/o in 02/2022. Screening for malignant neoplasm of breast 766489282 Z12.39 Pt educated on breast cancer screening guidelines , and discussed recommenda tion for scheduling imaging at hospital of her choice. Reviewed recommenda tion to have imaging done at same facility if possible as previous screenings . Pt states understand ing of POC. IUD check 822336204 Z30. 431 Pt educated on risks Vs benefits of use, reviewed ACHES symptoms. Dosing schedule reviewed. Pt educated on bleeding profile of device, expulsion sx, and when to notify HCP/go to ER. Plan to F/U PRN or at next WWE. Venereal d isease screening 800541116 Z11.3 Pt educated on importance of continuing to use condoms to avoid re-infecti on and prevent further STI exposure. Culture collected and sent. Further POC pending lab result review. Pt states understand ing of POC. [id number] Pauline A BANDAR Mullen [facility] [address] [place] [address] 03/09/2022 15:31:11 03/09/2022 17:11:54 Low grade squamous intraepithelial lesion on cervical Papanicolaou smear [id number] 9105 R87.612 UPT in office is negative. LSIL pap and HPV education discussed with pt. Plan to maximize health and have colposcopy after vacation. Pt educated on limitation s following colposcopy procedure and advised to avoid anything in the vagina X 1 week s/p procedure. Would also recommend avoiding swimming during 1st week post-proce dure. Pt states understand ing and reschedule d procedure to after her vacation. [id number] BANDAR Gill [facility] [address] [place] [address] 03/24/2022 15:49:38 03/24/2022 16:53:18 Abnormal cervical Papanicolaou smear 604863367 R87.619 *Discussed colposcopy technique and procedure, aware that at least 1 biopsy to betaken*Ex plained some bleeding/c ramping*Di scussed she may have brown or black vaginal discharge that will resolve within afew days.* Advised nothing in vagina for 48 hours after the procedure. *Call the office if:- heavy vaginal bleeding, soaking a large pad in 1-2 hours- vaginal bleeding for more than 7 days- foul smelling vaginal discharge- pelvic pain or cramps that do not improve with Motrin or Advil- temperatur e > 100.4*f/u pending results Low grade squamous intraepithelial lesion on cervical Papanicolaou smear [id number] 9105 R87.612 Human jose maria llomavirus deoxyribonucleic acid detected, high risk on cervical specimen 887778086 R87.721 [id number] BANDAR Gill [place] [address] [place] [address] 02/23/2023 15:38:00 02/28/2023 09:55:03 Gynecologic examination [id number] Z01.419 WWE completedP ap obtainedCB E nml; discussed breast self-aware ness.[facility] ovatxular health: discussed healthy diet and regular exercise. Lipid and diabetes screening by PCPContrac eption - IUDcolon cancer screening- cologuard [facility]- recommend daily Ca++ with Vitamin D. Weight-ej ring exercises. Screening for malignant neoplasm of cervix 434083265 Z12.4 Cervical cancer screening is used to find abnormal changes in the cells of the cervix that could lead to cancer. Screening includes the Pap test and, for some women, testing for a virus called human papillomav irus (HPV). The main cause of cervical cancer is infection with HPV. Screening for malignant neoplasm of breast 102436136 Z12.31 Depression screening 171 Z13.31 screen negative Screening for malignant neoplasm of colon 986050226 Z12.11 [id number] Nicci Okeefe ANÍBAL [facility] [address] [place] [address] 01/27/2024 16:26:37 01/27/2024 17:15:02 Vaginal discharge 251683379 N89.8 N76.0 Vaginal cx obtained.F ollow up pending cx results [id number] Pauline Mullen ANÍBAL [facility] [address] [place] [address] 02/27/2024 15:08:18 02/28/2024 15:05:36 Gynecologic examination 55843322 Z01.411 Pt educated on ACOG and ASCCP guidelines for breast, ovarian, and cervical cancer screenings . Exam WNL. Plan for F/U PRN or for next WWE. Additional diagnosis detail: Abnormal gynecologi danielle examinatio n Screening for malignant neoplasm of cervix 354510864 Z12.4 ASCCP guidelines reviewed with pt. Pap collected and sent. Further POC pending lab result review. Pt states understand ing of POC. Screening for malignant neoplasm of breast 820102262 Z12.31 Pt educated on breast cancer screening guidelines , and discussed recommenda tion for scheduling imaging in 08/2024. Pt states she already has scheduled. Reviewed recommenda tion to have imaging done at same facility if possible as previous screenings . Pt states understand ing of POC. Depression screening 171 Z13.31 PHQ9: 2. Pt educated on normal scoring, and discussed depression precaution s and when to notify HCP/go to ER. Intrauteri ne contraceptive device in situ 317698162 Z30.431 Pt educated on risks Vs benefits of use, reviewed ACHES symptoms. Dosing schedule reviewed. Pt educated on bleeding profile of device, expulsion sx, and when to notify HCP/go to ER. Pt advised bleeding pattern heavier than expected for Mirena IUD placement. IUD strings noted on SSE. See below POC regarding evaluation and management . Additional diagnosis detail: Encounter for routine checking of intrauteri ne contracept nils device (IUD) Abnormal u terine bleeding 7096635140 9100 N93.9 Pt educated on bleeding precaution s and discuss further evaluation . Pap with vaginal cx collected and sent. Pt advised to F/U for TVUS with MD appt to follow for EMB and to discuss surgical interventi ons as pt is not interested in IUD replacemen t as she feels her bleeding pattern will be unchanged. Pt given ACOG handout Abnormal Uterine Bleeding and EMB procedure handout for review. Pt advised to make appt prior to leaving office. Pt states understand ing of POC. Over 30 minutes spent in additional patient care beyond WWE, and at least 50% of that time was in face to face counseling . Female gen mary finding 259568339 R87.89 Pt educated on bimanual exam findings, and discussed pushing p.o. water intake, increasing fiber in diet, and considerat ion for stool softener or Mag Citrate use to evacuate bowel. Cologard WNL per pt in 02/2023. If sx persistent following bowel movements or no relief with interventi ons, pt encouraged to F/U with GI for colonoscop y. Pt states understand ing of POC. Additional diagnosis detail: Abnormal pelvic examAdditi onal diagnosis detail: Other abnormal findings in specimens from female genital organs [id number] Belen Martini MD [facility] [address] [place] [address] 03/09/2024 15:01:10 03/09/2024 16:26:04 Abnormal uterine bleeding 9802955837 9100 N93.9 Heavy and prolonged bleeding with IUD: The patient's IUD seems to be causing her heavy and prolonged bleeding. It is recommende d to start the progestero ne-only pill for four weeks, then remove the IUD during a colposcopy . If the patient's bleeding improves, consider getting her tubes tied and possibly performing an ablation if necessary. 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 It is recommende d to perform a colposcopy first to evaluate the need for a LEEP procedure. If the patient's Pap smear continues to be abnormal, discuss the possibilit y of hysterecto my as an option. Additional diagnosis detail: ASCUS of cervix with negative high risk HPV [id number] Belen Martini MD [facility] [address] [place] [address] 04/19/2024 13:47:20 04/19/2024 15:22:54 Atypical squamous cells of undetermined significance on cervical Papanicolaou smear 964031305 R87.610 Removal of intrauterine contraceptive device 7770636933 Z30.290 [id number] Pauline Mullen BANDAR [facility] [address] [place] [address] 11/05/2024 10:31:33 11/05/2024 16:29:35 Family history of breast cancer 699467295 Z80.3 Pt educated on optional MyRisk testing. Pt states understand ing of POC and will consider. Pt to notify HCP if would like to proceed with imaging or hereditary testing. Extremely dense breast composition 950023840 R92.343 Last mamm showed Birads 3, Density Category D. The mammogram results showing normal-loo hilda imaging and her breasts are categorize d as Dense according to the Mammogram Quality Standards Act (MQSA). The MQSA changed in 2023, and mammograms are now required to categorize the density of the breasts. Providers must notify pt if their breasts are dense or not dense. Dense breast tissue can cloud the radiologis t's view from completely seeing and assessing all areas of the breast. Dense breast tissue can also cause breast cancer. If a pt has dense breasts, providers are required to disclose this informatio n, offer additional lifetime breast cancer risk screening, and offer additional imaging with a Breast MRI. Concepción Pradhan done in office: 23.7%. Pt offered MyRisk testing. Pt prefers to consider and will F/U with provider if chooses to have testing. Pt prefer to have additional screening imaging. PA sent. Orders sent to facility pt prefers. Further POC pending imaging results. Over 30 minutes spent in patient care and at least 50% of that time was in face to face counseling . Health Concerns Section Related Observation LastModified by Organization Detai ls LastModified Time None Recorded Concern Status LastModified by Organization Details LastModified Time None Recorded Advance Directives Directive None Recorded Payers Encounter Date Sequence Insurance Name Policy Number Policy Eagle Covered Member ID Eagle Member ID Guarantor Name 01/27/2024 1 [place] [id number] Livia Saenz [id number] Livia Saenz 02/27/2024 1 [place] [id number] Livia Saenz [id number] Livia aSenz 03/09/2024 1 [place] [id number] Livia Saenz [id number] Livia Saenz 04/19/2024 1 [place] [id number] Livia Saenz [id number] Livia Saenz 11/05/2024 1 [place] [id number] Livia Saenz [id number] Livia Saenz Notes Date Note Type Note Provider Name and Address Organization Details Recorded Time 01/27/2024 text/html Vaginal/Vulvar ProblemReported bypatient.Location:[facility] Duration:present for 1-2 weeks Quality:itching Severity:moderate Context:sexually active Associated Symptoms:vaginal itching PT is here for vaginal itch and vaginal discharge on going for 1 week.Pt stated that she is not having any pain, no rashes. PT LMP 01/13/2024. No additional concerns. Livia presents with c/o vaginal/vulvar irritation. States she had a new partner. She reports vaginal discharge, mucous-like . Denies vaginal odor. States she did use protection. Nicci Okeefe, BANDAR [address] [facility], [place], [address], [facility] [employer] 01/27/2024 16:55:00 02/27/2024 text/html Annual GYNReport ed bypatient.Menstrual cycle:Normal menses Urinary symptoms:No hematuria;Stress incontinence Vulva:No genital lesion Vagina:Normal vaginal discharge Breast:No breast pain; No breast lump; No nipple discharge Current Contraception:Satisfi ed with current contraception Sexual complaints:No sexual complaints; No pain during intercourse; Normal libido Menopausal Symptoms:No menopausal symptoms Psychological symptoms:No depression; No anxiety; No PMDD Pt presents for annual well woman exam today. Pt states she is doing well. Pt reports having regular monthly cycles that are heavier for having an LNG-IUD in place and can be crampy at times. Pt characterizes bleeding as occurring every 30 days, lasting 5-7 days, and changes her pad/tampon/menstrual cup 5-6 times per day. Pt is currently sexually active. Pt has had Mirena IUD in place since 03/2018 for contraception following DVT dx during extended cycle SPENSER use. Pt states she has never had bleeding cessation with IUD use, and is frustrated with the amount of bleeding she has even with hormonal therapy on board. Pt would like to discuss tx alternatives. Last Pap: 02/2023 LSIL, HPV neg. Pt has a h/o abnormal pap with colpo in 2021 reflecting benign pathology; chronic cervicits dx. Pt is UTD on mammogram, last donein 08/2023 and WNL per pt; no records on file. Pt is UTD on colon cancer screenings; completed Cologard in 02/2023 and was WNL. Pt has no personal or family history of cancer. Pt declines STD screening via culture and serum testing. Pt does have PCP who she sees routinely for health promotion and screenings. Pt has no other concerns. Pauline Mullen, [place] [id number] [facility], [place], [address], [facility] 02/27/2024 18:17:53 03/09/2024 text/html Livia 48 y/o pre sents for AUB. She currently has the Mirena IUD. She reports having heavy bleeding with the Mirena IUD after having it for 6 years (2017). She has always had heavy periods. She also is here to discuss her persistant abnormal pap smears and POC. She has no concerns as of today. The patient is a 48-year-old female who presents with heavy and prolonged bleeding associated with her IUD, which has been in place since 2018. She reports that the bleeding is heavy for one to three days and lasts five to seven days in total, occurring every 23 to 25 days. The patient has a history of DVT and was on anticoagulation therapy for one year, but has not been on it for a while. The patient's previous ultrasound showed a normal uterus, and she has a history of abnormal Pap smears with at least three instances. She also had a high-risk HPV infection in the past, but recent tests have been negative for high-risk HPV. She uses the IUD for contraception. Belen Martini MD [address] [place] [address], [place], [address], [facility] [employer] 03/09/2024 17:46:24 04/19/2024 text/html Abnormal Pap SmearReported bypatient.Onset/Cordell g:pap smear performed on: (02/27/24) Quality:pap smear results: ; ASCUS Associated Symptoms:no vaginal/vulvar pain; no vulvar lesions/growths; no vaginal discharge; no postcoital bleeding; no dyspareunia Livia 49 y/o here for IUD removal (she was put on Slynd for control) having colposcopy due to abnormal pap smear Belen Martini MD [address] [place] [address], [place], [address], [facility] [employer] 04/19/2024 20:16:05 11/05/2024 text/html Pt sent an appt request on 10/18/24: I would like to schedule a follow up visit after receiving my mammogram/Breast US report. There are two m asses that are concerning for me. I have talked to my PCP and we agree that a follow up with my Flasher Adjuster for a physical breast exam to see if masses are palpable and discussion would be good to determine next steps. I understand radiologist recommends 6 month follow up but I would like more discussion regarding this. I tried multiple times to attach the report and this picture is not super clear. I had it done at [facility] or I can email the report if someone would like to provide me with an email address to send it to. Pt was sent reply on 11/03/24 to get copies of report to review. Pt has imaging copies with her and ready to review. Pt denies any trauma to the breast or changes in her own BSE. Pt does have a family h/o breast cancer in maternal aunt and maternal great aunt. Pt has not had hereditary testing. Pt has no other concerns at this time. BANDAR Chase [address] [place] [address], [place], [address], [facility] 11/05/2024 13:14:57 OBGyn Episode Ob Episode Information Episode Created Date Number of Fetuses Patient Bloodtype Patient rh Status Prepregnancy Weight lbs Domestic Partner Domestic Partner Phone Father Name Industrial Aerial Installer Status 01/27/20 24 1 CLOSED Fetus Data First Name Last Name Admitted to NICU Weight (g) Sex Living Outcome Pediatric Complications Fetus ID Race Codes Race Delivery Type M Full Term [id number] Julio Calculation Initial Julio Date Initial Exam Date Initial Exam Provider Initial Ultrasound Date Last Menstrual Period Date Ultra Sound Weeks Gestation 0 Eighteen To Twenty Week Julio Update Ultra Sound Date Fundal Height At Umbil Quickening Date Ultra Sound Latest Weeks Gestation Final Julio Confirmed By Final Julio Confirmed Date Final Julio Date Ultra Sound Latest Days Gestation 0 0 Menstrual History Last Menstrual Date Menses Monthly On Bcp Conception Prior Menses Frequency Hcg Plus Date Menarche Onset Age Delivery Information Delivery Date Delivery Type Labor Anesthesia Weeks Gestation Incision Type Labor Labor Length Hrs Delivered By Post Complications Tubal Sterilization Discharge Date Comments 8 Discharge Information Feeding Method Contraceptive Method Maternal HG B and HCT Levels Ob Episode Information Episode Created Date Number of Fetuses Patient Bloodtype Patient rh Status Prepregnancy Weight lbs Domestic Partner Domestic Partner Phone Father Name Industrial Aerial Installer Status 01/27/20 24 1 CLOSED Fetus Data First Name Last Name Admitted to NICU Weight (g) Sex Living Outcome Pediatric Complications Fetus ID Race Codes Race Delivery Type M Full Term [id number] Julio Calculation Initial Julio Date Initial Exam Date Initial Exam Provider Initial Ultrasound Date Last Menstrual Period Date Ultra Sound Weeks Gestation 0 Eighteen To Twenty Week Jluio Update Ultra Sound Date Fundal Height At Umbil Quickening Date Ultra Sound Latest Weeks Gestation Final Julio Confirmed By Final Julio Confirmed Date Final Julio Date Ultra Sound Latest Days Gestation 0 0 Menstrual History Last Menstrual Date Menses Monthly On Bcp Conception Prior Menses Frequency Hcg Plus Date Menarche Onset Age Delivery Information Delivery Date Delivery Type Labor Anesthesia Weeks Gestation Incision Type Labor Labor Length Hrs Delivered By Post Complications Tubal Sterilization Discharge Date Comments 3 Discharge Information Feeding Method Contraceptive Method Maternal HG B and HCT Levels Ob Episode Information Episode Created Date Number of Fetuses Patient Bloodtype Patient rh Status Prepregnancy Weight lbs Domestic Partner Domestic Partner Phone Father Name Industrial Aerial Installer Status 01/27/20 24 1 CLOSED Fetus Data First Name Last Name Admitted to NICU Weight (g) Sex Living Outcome Pediatric Complications Fetus ID Race Codes Race Delivery Type M Full Term [id number] Julio Calculation Initial Julio Date Initial Exam Date Initial Exam Provider Initial Ultrasound Date Last Menstrual Period Date Ultra Sound Weeks Gestation 0 Eighteen To Twenty Week Julio Update Ultra Sound Date Fundal Height At Umbil Quickening Date Ultra Sound Latest Weeks Gestation Final Julio Confirmed By Final Julio Confirmed Date Final Julio Date Ultra Sound Latest Days Gestation 0 0 Menstrual History Last Menstrual Date Menses Monthly On Bcp Conception Prior Menses Frequency Hcg Plus Date Menarche Onset Age Delivery Information Delivery Date Delivery Type Labor Anesthesia Weeks Gestation Incision Type Labor Labor Length Hrs Delivered By Post Complications Tubal Sterilization Discharge Date Comments 3 Discharge Information Feeding Method Contraceptive Method Maternal HG B and HCT Levels
--- OUTSIDE RECORDS SUMMARY | 2024-12-03 11:18 | XMS_ITS | Clinical Summary ---
Author Organization [facility] Address [address] [place] [address] Phone Care Team Providers Care Advertising Space Clerk Name Role Phone Lay Bauer MD Primary Care Provider Allergies No known active allergies Medications ELIQUIS 5 MG Tablet 2 times daily. 12/23/2017 Active valACYclovir (VALTREX) 500 MG Tablet 250 mg daily. 12/23/2017 Active Cetirizine HCl (ZYRTEC PO) Take 10 mg by mouth daily. 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 01/02/2018 Family History Medical History Relation Name Comments Cancer Maternal Aunt breast Cancer Maternal Grandfather lung Cancer Paternal Grandfather sinus Cancer Paternal Grandmother colon Relation Name Status Comments Maternal Aunt Maternal Grandfather Paternal Grandfather Paternal Grandmother Social History Tobacco Use Types Packs/Day Years Used Date Smoking Tobacco: Never Smokeless Tobacco: Never Alcohol Use Standard Drinks/Week Comments Yes 0 (1 standard drink = 0.6 oz pur e alcohol) occasionally Comments No Sex and Gender Information Value Date Recorded Sex Assigned at Not on file Legal Sex Female 2:57 AM [employer] Gender Identity Not on file Sexual Orientation Not on file Last Filed Vital Signs Vital Sign Reading Time Taken Comments Blood Pressure 112/52 02/16/2018 10:25 AM CDT Pulse 60 02/16/2018 10:25 AM CDT Temperature 37 C (98.6 F) 02/16/2018 10:25 AM CDT Respiratory Rate 16 01/02/2018 10:06 AM CDT Oxygen Saturation 98% 02/16/2018 10:25 AM CDT Inhaled Oxygen Concentration - - Weight 80.4 kg (177 lb 3.2 oz) 02/16/2018 10:25 AM CDT Height 165.1 cm (5' 5 ) 01/02/2018 10:06 AM CDT Body Mass Index 29.49 01/02/2018 10:06 AM CDT Plan of Treatment Health Maintenance Due Date Last Done Comments Hepatitis C Virus (HCV) Screening 1975 TdaP Immunization 1975 Hepatitis B Immunization (1 of 3 - 19+ 3-dose series) 1996 Discussion re Starting/Frequency of Mammograms 2017 Colonoscopy 2022 Colorectal Cancer Screening 2022 Influenza Immunization (#1) 2024 SARS-COV-2 Immunization ( season) 2024 08/19/2021, 12/16/2020, 11/13/2020 Respiratory Syncytial Virus (RSV) Immunization (Adult) (1 - 1-dose 75+ series) 2052 Cervical Cancer Screening (CCS) Discontinued Pap Smear Discontinued 02/09/2007 HPV/Cotest Discontinued Meningococcal Immunization (ACWY) Aged Out No longer eligible based on patient's age to complete this topic Pneumococcal Immunization Combined Aged Out No longer eligible based on patient's age to complete this topic Rotavirus Immunization Aged Out No lo nger eligible based on patient's age to complete this topic Procedures Procedure Name Priority Date/Time Associated Diagnosis Comments PATHOLOGY CYTOLOGY CATERER'S AIDE Routine 02/09/2007 from Last 3 Months or Most Recently Relevant to Health Maintenance Results * PATHOLOGY CYTOLOGY CATERER'S AIDE (02/09/2007) Specimen of unknown material (specimen) Danielle Miller MD PATHOLOGY/CYTOLOGY ORDERABLES Final Result from Last 3 Months or Most Recently Relevant to Health Maintenance Insurance [facility] Care Teams Advertising Space Clerk Relationship Specialty Start Date End Date Lay Bauer MD [address] [place] [address] PCP - General Family Medicine 12/29/17
--- OUTSIDE RECORDS SUMMARY | 2024-12-03 11:18 | XMS_ITS ---
Author Organization [facility] Address [address] [place] [address] Care Team Providers Care Hat Lining Paster Name Role Phone Lay Bauer Primary Care Provider [phone] REASON FOR VISIT Telehealth discuss mammogram Medications Medication SIG (Take, Route, Frequency, Duration) Notes Start Date End Date Status Allergy oral; Duration: 0 *Pick strength -form from [employer] for eRX* 06/16/2023 Active Encounters Encounter Location Date Provider Diagnosis [address] [address] 10/18/2024 Lay Bauer Abnormal mammogram R92.8 Assessments Encounter Date Diagnosis (ICD Code) Assessment Notes Treatment Notes Treatment Clinical Notes 10/18/2024 Abnormal mammogram (ICD-10 - R92.8) 10/18/2024 Other Breast Masses - Presence of several suspect spots on the left breast and 2 on the right. Two oval hypoechoic masses on the left breast, 3.5 cm from the nipple, possibly fibroadenomas. Dense breast tissue decreases mammogram sensitivity. - Recommend a clinical breast exam by a open hearth melter. If palpable, a biopsy is advised. If not palpable, consider a biopsy or MRI. Do not wait a year for follow-up; consider a short interval follow-up in six months if no biopsy is done. - The patient expressed concerns about the mammogram results and the need for a biopsy. The doctor emphasized the importance of a thorough evaluation due to the dense breast tissue and the potential for malignancy. - The doctor offered to assist with ordering a biopsy or MRI if the open hearth melter deems it necessary. Appointments - Schedule a clinical breast exam with a open hearth melter to assess the need for a biopsy or further imaging. Plan Of Treatment Treatment Notes Assessment Notes Other Breast Masses - Presence of several suspect spots on the left breast and 2 on the right. Two oval hypoechoic masses on the left breast, 3.5 cm from the nipple, possibly fibroadenomas. Dense breast tissue decreases mammogram sensitivity. - Recommend a clinical breast exam by a open hearth melter. If palpable, a biopsy is advised. If not palpable, consider a biopsy or MRI. Do not wait a year for follow-up; consider a short interval follow-up in six months if no biopsy is done. - The patient expressed concerns about the mammogram results and the need for a biopsy. The doctor emphasized the importance of a thorough evaluation due to the dense breast tissue and the potential for malignancy. - The doctor offered to assist with ordering a biopsy or MRI if the open hearth melter deems it necessary. Appointments - Schedule a clinical breast exam with a open hearth melter to assess the need for a biopsy or further imaging. Next Appt Details Provider Name:Lay Bauer , 04/03/2025 02:30:00 PM, [address] [place] [address], [phone], [phone] History and Physical Notes * Examination Category Sub-Category Detail Notes General Examination General appearance: alert, p leasant, well-nourished and in no acute distress Head: normocephalic, atrau matic Eyes: both eyes, normal Lungs: no respiratory distr ess. Skin: warm and dry; no kan hes Psych: alert and oriented x 3, cognitive function intact, maintains good eye contact, normal affect / mood, speech is clear and coherent Progress Notes * Livia AREVALODOB:1975 (49 yo F)Acc No.[id number]:10/18/2024 Patient: Livia Vinson Provider: Rossana Bauer MD :1975 A ge:49 Y S ex:Female Date:10/18/2024 Phone: Address:[address] [place], [place] [phone] Subjective: * Chief Complaints: * T [facility] discuss mammogram * HPI: B reast complaint: Telehealth visit today to discuss recent abnormal mammogram. She had screening mammogram done showing birads 3 with probable benign cyst in left breast. 6 mo f/u was recommended. H PI: Chief complaint Discussion of recent mammogram results showing multiple suspect spots on both breasts and concerns about potential malignancy. History of present illness - Livia had a routine yearly screening mammogram. - Results showed several suspect spots on the left breast and 2 on the right. - Previous mammogram about five years ago required extra pictures but no ultrasound. - This is the first time an ultrasound was performed. - Concerned about two oval hypoechoic masses, 3.5 cm from the nipple on the left breast. - Has extremely dense breast tissue, which may affect the sensitivity of mammograms. - No palpable masses felt by Livia. - No menstrual cycle due to being on Slynd since March or April 2024. - Previously had an IUD but experienced continuous bleeding. - History of DVT, cannot use estrogen-based treatments. Past medical history - Dense breast tissue - History of deep vein thrombosis (DVT) Social history - No current menstrual cycle due to Slynd (progestin-only pill) Current medications - Slynd, oral Imaging results - Mammogram: several suspect spots on the left breast, 2 on the right breast. - Ultrasound: 2 oval hypoechoic masses, 3.5 cm from the nipple on the left breast. * Medical History: Major depressive disorder, recurrent, moderate Insomnia, unspecified Allergic rhinitis, unspecified Gastro-esophageal reflux disease without esophagitis Nonscarring hair loss, unspecified Attention and concentration deficit * Medications: T akingAllergy oral , Notes to Pharmacist: *[facility]*Taking Allergy oral , Notes to Pharmacist: *[facility] from [facility] for [facility]* Objective: * Examination: G eneral Examination: General appearance: a lert, pleasant, well-nourished and in no acute distress. Head: n ormocephalic, atraumatic. Eyes: b oth eyes, normal. Skin: w arm and dry; no rashes. Lungs: n o respiratory distress.. Psych: a lert and oriented x 3, cognitive function intact, maintains good eye contact, normal affect / mood, speech is clear and coherent. ? Assessment: * Assessment: 1. A bnormal mammogram - R92.8 (Primary) Plan: * Treatment: Billing Information: * Visit Code: 87079 OFFICE VISIT LOW. Modifiers: 95 * Procedure Codes: * ULTING PRACTICE DIRECTOR Sign off status: Completed true * Provider: Rossana Bauer MD Date: 0 10/18/2024 Generated for Sade molina/Alma/Ninoitting on: 0 12/03/2024 11:18 AM CONSULTING PRACTICE DIRECTOR
--- OUTSIDE RECORDS SUMMARY | 2024-12-03 11:18 | XMS_ITS | Patient Health Record ---
Author Organization [facility] Address [address] [place] [address] Care Team Providers Care Shopping Centre Manager Name Role Phone Juancarlos Lay Primary Care Provider [phone] Migration, Provider Unavailable Unavailable Allergies Allergen (clinical drug ingredient) Drug/Non Drug Allergy documented on EMR Reaction Allergy Type Onset Date Status coconut allergenic extract Coconut (Diagnostic) Unknown Drug Allergy 01/28/2022 Active Results Component Value Reference Range Notes Basic Metabolic Panel Reviewed date:04/19/2024 12:00:00 AM Interpretation: Performing Lab: Notes/Report: ANION GAP 8.7 mmol/L BUN 16 mg/dL Calcium Lvl 8.5 mg/dL Chloride Lvl 105 mmol/L CO2 24 mmol/L Creatinine Lvl 1.12 mg/dL eGFR CKD-EPI 61 mL/min/1.73 m2 Glucose Lvl 88 mg/dL Potassium Lvl 4.4 mmol/L Sodium Lvl 138 mmol/L Urinalysis with Microscopic Reviewed date:04/04/2024 12:00:00 AM Interpretation: Performing Lab: Notes/Report: UA Appear Clear UA Bacteria Negative /HPF UA Bili Negative UA Blood Negative UA Color Colorless UA Epithelial Cells <1 /HPF UA Glucose Normal UA Ketones Negative UA Leuk Est Negative UA Mucous Negative /LPF UA Nitrite Negative UA pH 6.5 UA Protein Negative UA RBC 0 /HPF UA Spec Grav 1.005 UA Urobilinogen Normal UA WBC <1 /HPF Basic Metabolic Panel Reviewed date:04/04/2024 12:00:00 AM Interpretation: Performing Lab: Notes/Report: ANION GAP 4.0 mmol/L BUN 14 mg/dL Calcium Lvl 9.2 mg/dL Chloride Lvl 105 mmol/L CO2 28 mmol/L Creatinine Lvl 1.08 mg/dL eGFR CKD-EPI 64 mL/min/1.73 m2 Glucose Lvl 81 mg/dL Potassium Lvl 4.1 mmol/L Sodium Lvl 137 mmol/L Thyroid Stimulating Hormone Reviewed date:03/30/2024 12:00:00 AM Interpretation: Performing Lab: Notes/Report: TSH 0.72 mcIU/mL T4 Free Reviewed date:03/30/2024 12:00:00 AM Interpretation: Performing Lab: Notes/Report: T4 Free 0.74 ng/dL Magnesium Reviewed date:03/30/2024 12:00:00 AM Interpretation: Performing Lab: Notes/Report: Magnesium Lvl 2.0 mg/dL Lipid Panel {Chol, Trig, HDL , LDL} Reviewed date:03/30/2024 12:00:00 AM Interpretation: Performing Lab: Notes/Report: Chol/HDL 3 Cholesterol Total 178 mg/dL Coronary Risk 39 % HDL 69 mg/dL LDL 90 mg/dL NON HDL CHOLESTEROL 110 mg/dL Triglycerides 97 mg/dL Comprehensive Metabolic Pane l Reviewed date:03/30/2024 12:00:00 AM Interpretation: Performing Lab: Notes/Report: Albumin Lvl 4.3 g/dL Albumin/Globulin Ratio 1.6 Alk Phos 58 unit/L ALT 15 unit/L ANION GAP 6.4 mmol/L AST 18 unit/L Bilirubin Total 0.5 mg/dL BUN 24 mg/dL Calcium Lvl 9.3 mg/dL Chloride Lvl 106 mmol/L CO2 26 mmol/L Creatinine Lvl 1.22 mg/dL eGFR CKD-EPI 55 mL/min/1.73 m2 Glucose Lvl 88 mg/dL Potassium Lvl 3.9 mmol/L Protein Total 7.0 g/dL Sodium Lvl 138 mmol/L CBC w/ Diff Reviewed date:03/30/2024 12:00:00 AM Interpretation: Performing Lab: Notes/Report: Basophil Auto 0.8 % Eos Absolute 0.2 x10*3/mcL Eosinophil Auto 3.6 % Hct 37.9 % Hgb 13.0 g/dL Lymph Absolute 2.8 x10*3/mcL Lymph Auto 42.3 % MCH 31.9 pg MCHC 34.3 g/dL MCV 93.1 fL [place] Absolute 0.5 x10*3/mcL [place] Auto 8.1 % MPV 8.8 fL Neutro Absolute 2.9 x10*3/mcL Neutro Auto 45.2 % Platelets 310 K/mcL RBC 4.07 x10*6/mcL RDW 12.6 % WBC 6.5 K/mcL Reason For Referral No Information Medications Medication SIG (Take, Route, Frequency, Duration) Notes Start Date End Date Status buPROPion HCl ER (XL) 150 MG 1 tablet in the morning Orally Once a day; Duration: 90 days Active valACYclovir HCl 500 MG 1 tablet Orally Once a day; Duration: 90 days Active Allergy oral; Duration: 0 *Pick strength-form from [employer] for eRX* 06/16/2023 Active Immunizations Vaccine Route Administration Date Status Comme nts Moderna Covid-19 Vaccine 1st dose IM Intramuscular 11/13/2020 Administered Source VFC Code: : Moderna Covid-19 Vaccine 1st dose IM Intramuscular 12/16/2020 Administered Source VFC Code: : Moderna Covid-19 Vaccine 1st dose Unknown 08/19/2021 Administered Source VFC Code: : Tdap IM Intramuscular 03/30/2023 Administered ,sourc ename : New immunization record ,immstatus : Complete Problems Problem Type SNOMED Code ICD Code Onset Dates Problem Status W/U Status Risk Notes Problem [id number] Abnormal mammogr am (R92.8) Active confirmed Problem Insomnia (194887982) Insomnia, unspecified (G47.00) 021 Active confirmed Problem Chronic sinusitis (93856457) Chronic sinusitis, unspecified (J32.9) 023 Active confirmed Problem Blood chemistry abnormal (393508246) Other specified abnormal findings of blood chemistry (R79.89) 024 Active confirmed Problem Herpes simplex with complication (059888376) Unspecified herpes simplex complication (054.8) 019 Problem resolved confirmed Problem Venous thromboembolic disease (294755968) Phlebitis and thrombophlebitis of other deep vessels of lower extremities (451.19) 017 Problem resolved confirmed Problem Acute bronchitis (90341407) Acute bronchitis (466.0) 016 Problem resolved confirmed Problem Moderate major depression, single episode (32792557) Major depressive disorder, single episode, moderate (F32.1) 019 Problem resolved confirmed Problem Thromboembolism of vein (591077304) Acute embolism and thrombosis of other specified veins (I82.890) 017 Problem resolved confirmed Problem Injury of right Achilles tendon (disorder) (53398223296912) Other specified injury of right Achilles tendon, initial encounter (S86.091A) 017 Problem resolved confirmed Problem Other specified injury of right Achilles tendon, subsequent encounter (S86.091D) 017 Problem resolved confirmed Problem Pre-employment screening (283125731) Encounter for pre-employment examination (Z02.1) 018 Problem resolved confirmed Problem Edema (90522023) Edema, unspecif ied (R60.9) 017 Problem resolved confirmed Problem Acute bronchitis (21519458) Acute bronchitis, unspecified (J20.9) 016 Problem resolved confirmed Problem Acute maxillary sinusitis (37505704) Acute maxillary sinusitis, unspecified (J01.00) 016 Problem resolved confirmed Problem Adjustment disorder with depressed mood (75032625) Adjustment disorder with depressed mood (F43.21) 018 Problem resolved confirmed Problem Ankle sprain (57014563) Other ankle sprain and strain (845.09) 017 Problem resolved confirmed Problem Acute maxillary sinusitis (93713867) Acute maxillary sinusitis (461.0) 016 Problem resolved confirmed Problem Moderate major depression, single episode (32511804) Major depressive disorder, single episode, moderate (296.22) 019 Problem resolved confirmed Problem Adjustment disorder with depressed mood (18866413) Adjustment disorder with depressed mood (309.0) 018 Problem resolved confirmed Problem Vaccination given (194540521) Encounter for immunization (Z23) 023 Active confirmed Problem Adult health examination (065221641) Encounter for general adult medical examination without abnormal findings (Z00.00) 021 Active confirmed Problem Abnormal findings on diagnostic imaging of breast (111360168) Other abnormal and inconclusive findings on diagnostic imaging of breast (R92.8) 024 Active confirmed Problem Laboratory test result abnormal (186421915) Abnormal levels of other serum enzymes (R74.8) 023 Active confirmed Problem Attention and concentration deficit (R41.840) 024 Active confirmed Problem Pain in limb (24094654) Pain in right lower leg (M79.661) 017 Active confirmed Problem Alopecia (85136568) Nonscarring hair loss, unspecified (L65.9) 023 Active confirmed Problem Gastro-esophageal reflux disease without esophagitis (352450067) Gastro-esophageal reflux disease without esophagitis (K21.9) 021 Active confirmed Problem Allergic rhinitis (59089994) Allergic rhinitis, unspecified (J30.9) 024 Active confirmed Problem Non-neoplastic nevus (553703997) Nevus, non-neoplastic (I78.1) 016 Active confirmed Problem Recurrent major depression in remission (19219348) Major depressive disorder, recurrent, in partial remission (F33.41) 023 Active confirmed Problem Moderate recurrent major depression (05313817) Major depressive disorder, recurrent, moderate (F33.1) 021 Active confirmed Problem Herpes simplex viral infection (09749870) Herpesviral infection, unspecified (B00.9) 022 Active confirmed Vital Signs Heart Rate 84 /min 04/02/2024 Temperature 97.5 degrees Fahrenheit 04/02/2024 Respiratory Rate 16 /min 04/02/2024 Height-cm 163.83 cm 04/02/2024 Oximetry 99 % 04/02/2024 Blood pressure diastolic 70 mm Hg 04/02/2024 Weight-kg 74.93 kg 04/02/2024 Height 64.50 in 04/02/2024 Blood pressure systolic 118 mm Hg 04/02/2024 Weight 165.19 lbs 04/02/2024 BMI 27.91 kg/m2 04/02/2024 Encounters Encounter Location Date Provider Diagnosis [facility] [address] [place] [address] 03/29/2024 Provider Migration Gastro-esophageal reflux disease without esophagitis K21.[address] [address] 04/02/2024 Lay Bauer Other specified abnormal findings of blood chemistry R79.89 ; Major depressive disorder, recurrent, in partial remission F33.41 ; Encounter for general adult medical examination without abnormal findings Z00.00 and Allergic rhinitis, unspecified J30.[address] [address] 04/04/2024 Provider Migration Other specified abnormal findings of blood chemistry R79.[address] [address] 04/18/2024 Provider Migration Other specified abnormal findings of blood chemistry R79.[address] [address] 05/11/2024 Provider Migration Other specified abnormal findings of blood chemistry R79.[address] [address] 08/20/2024 Provider Migration Other abnormal and inconclusive findings on diagnostic imaging of breast R92.[address] [address] 08/29/2024 [facility] Major depressive disorder, recurrent, in partial remission F33.41 ; Attention and concentration deficit R41.840 ; Other abnormal and inconclusive findings on diagnostic imaging of breast R92.8 and Other specified abnormal findings of blood chemistry R79.[address] [address] 10/18/2024 [facility] Abnormal mammogram R92.[address] [address] 09/08/2024 Provider Migration [address] [address] 09/09/2024 Provider Migration [address] [address] 09/27/2024 [facility] Abnormal mammogram R92.8 Assessments Encounter Date Diagnosis (ICD Code) Assessment Notes Treat ment Notes Treatment Clinical Notes 03/29/2024 Gastro-esophageal reflux disease without esophagitis (ICD-10 - K21.9) 04/02/2024 Major depressive disorder, recurrent, in partial remission (ICD-10 - F33.41) 04/02/2024 Allergic rhinitis, unspecified (ICD-10 - J30.9) 04/02/2024 Other specified abnormal findings of blood chemistry (ICD-10 - R79.89) 04/02/2024 Encounter for general adult medical examination without abnormal findings (ICD-10 - Z00.00) 04/04/2024 Other specified abnormal findings of blood chemistry (ICD-10 - R79.89) 04/18/2024 Other specified abnormal findings of blood chemistry (ICD-10 - R79.89) 05/11/2024 Other specified abnormal findings of blood chemistry (ICD-10 - R79.89) 08/20/2024 Other abnormal and inconclusive findings on diagnostic imaging of breast (ICD-10 - R92.8) 08/29/2024 Major depressive disorder, recurrent, in partial remission (ICD-10 - F33.41) 08/29/2024 Attention and concentration deficit (ICD-10 - R41.840) 08/29/2024 Other specified abnormal findings of blood chemistry (ICD-10 - R79.89) 08/29/2024 Other abnormal and inconclusive findings on diagnostic imaging of breast (ICD-10 - R92.8) 09/27/2024 Abnormal mammogram (ICD-10 - R92.8) 10/18/2024 Abnormal mammogram (ICD-10 - R92.8) 10/18/2024 Other Breast Masses - Presence of several suspect spots on the left breast and 2 on the right. Two oval hypoechoic masses on the left breast, 3.5 cm from the nipple, possibly fibroadenomas. Dense breast tissue decreases mammogram sensitivity. - Recommend a clinical breast exam by a laborer gold leaf. If palpable, a biopsy is advised. If [...] ordering a biopsy or MRI if the laborer gold leaf deems it necessary. Appointments - Schedule a clinical breast exam with a laborer gold leaf to assess the need for a biopsy or further imaging. Plan Of Treatment Pending Test Test Name Order Date Ultrasound : Breasts, bilateral 09/27/20 Mammogram (Bilateral), Diagnostic comput er aided 09/27/2024 Next Appt Details Provider Name:Lay Bauer , 04/03/2025 02:30:00 PM, [address] [facility], [place], [address], [phone] Insurance Providers Payer Name Payer Address Payer Phone Subscriber Number Group Number Insured Name Patient Relationship to Insured Coverage Start Date Coverage End Date [employer] [address] [place] [address] [id number] Livia Saenz Self - patient is the insured 4 4 [employer] [address] [place] [address] [id number] Livia Saenz Self - patient is the insured 5 Medical (General) History Medical History History ICD Code Major depressive disorder, recurrent, mo derate Major depressive disorder, recurrent, mo derate F33.1 Insomnia, unspecified G47.00 Allergic rhinitis, unspecified J30.9 Gastro-esophageal reflux disease without esophagitis K21.9 Nonscarring hair loss, unspecified L65.9 Attention and concentration deficit R41. 840
--- OUTSIDE RECORDS SUMMARY | 2024-12-03 11:18 | XMS_ITS | Clinical Summary ---
Author Organization [facility] Address [address] [place] [address] Care Team Providers Care Track Grinder Name Role Phone Lay Bauer MD Primary Care Provider Social History Tobacco Use Types Packs/Day Years Used Date Smoking Tobacco: Never Assessed Comments Unknown Sex and Gender Information Value Date Recorded Sex Assigned at Not on file Legal Sex Female 8:17 PM CDT Gender Identity Not on file Sexual Orientation Not on file Last Filed Vital Signs Vital Sign Reading Time Taken Comments Blood Pressure 108/64 10/13/2015 8:21 AM SPANISH INSTRUCTOR Pulse 76 10/13/2015 8:21 AM SPANISH INSTRUCTOR Temperature - - Respiratory Rate - - Oxygen Saturation - - Inhaled Oxygen Concentration - - Weight 80.3 kg (177 lb) 10/13/2015 8:21 AM SPANISH INSTRUCTOR Height 165.1 cm (5' 5 ) 10/13/2015 8:21 AM SPANISH INSTRUCTOR Body Mass Index 29.45 10/13/2015 8:21 AM SPANISH INSTRUCTOR Plan of Treatment Health Maintenance Due Date Last Done Comments Cervical Cancer Screening Pa p Smear (Age 30 to 64) Every 3 Years 1977 Colorectal Cancer Screening Colonoscopy (10 Years) 1977 Annual Physical 1980 Hepatitis C 1995 DTaP, Tdap and Td Vaccines ( 1 - Tdap) 1996 Hepatitis B Vaccines (1 of 3 - 19+ 3-dose series) 1996 Cervical Cancer Screening Pa p with HPV Testing (Age 30 to 64) Every 5 Years 2007 Cervical Cancer Screening with HPV 2007 Mammogram Screening 2017 COVID-19 Vaccine (2023-2 5 season) 2024 Influenza Adult (#1) 2024 Meningococcal B Vaccine Aged Out No l onger eligible based on patient's age to complete this topic Meningococcal Vaccine Aged Out No philipp terrance eligible based on patient's age to complete this topic Pneumococcal Vaccine: Pediat rics (0 to 5 Years) and At-Risk Patients (6 to 64 Years) Aged Out No longer eligible b ased on patient's age to complete this topic RSV Immunizations Under 20 Months Aged Out No longer eligible based on patient's age to complete this topic Insurance [facility] Care Teams Track Grinder Relationship Specialty Start Date End Date Lay Bauer MD [address] [place] [address] PCP - General FAMILY PRACTICE 08/11/18
--- OUTSIDE RECORDS SUMMARY | 2024-12-03 11:18 | XMS_ITS | Encounter Summary ---
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 Message [facility] Patient Accounts [address] [place] [address] [facility] Provider PAYMENT ARRANGMENTS Social History Tobacco Use Types Packs/Day Years [...] on filedocumented in this encounter Care Teams Weapons Specialist Relationship Specialty Start Date End Date Lay Bauer MD [address] [place], [place] [phone] PCP - General FAMILY PRACTICE 08/11/18 documented as of this encounter
--- OUTSIDE RECORDS SUMMARY | 2024-12-03 11:19 | XMS_ITS ---
Author Organization [facility] dicine Address [address] [place] [phone] Care Team Providers Care Relish Blender Name Role Phone Lay Bauer Primary Care Provider [phone] REASON FOR VISIT Diagnostic mammogram results Encounters Encounter Location Date Provider Diagnosis [address] [address] 09/27/2024 Lay Bauer Abnormal mammogram R92.8 Assessments Encounter Date Diagnosis (ICD Code) Assessment Notes Treatment Notes Treatment Clinical Notes 09/27/2024 Abnormal mammogram (ICD-10 - R92.8) Plan Of Treatment Pending Test Test Name Order Date Ultrasound : Breasts, bilateral 09/27/20 24 Mammogram (Bilateral), Diagnostic comput er aided 09/27/2024 Next Appt Details Provider Name:Lay Bauer , 04/03/2025 02:30:00 PM, [address] [place] [address], [phone], [phone] Progress Notes * MICKEY LiviaDOB:1975 (49 yo F)Acc No.[id number]:09/27/2024 Patient: Livia MOBLEY :1975 A ge:49 Y S ex:Female Phone: Address:[address] [place] [address], [place], [address] Subjective: * Chief Complaints: * D iagnostic mammogram results * Medical History: * Surgical History: * Hospitalization/Major Diagno stic Procedure: * Medications: Objective: * Physical Examination: Assessment: * Assessment: 1. A bnormal mammogram - R92.8 Plan: * Treatment: * ?Imaging: Mammogram (Bilateral), Diagnostic computer aided* * Procedure Codes: Billing Information: * Visit Code: * Procedure Codes: * true * Date: Generated for Sade molina/Alma/Fauzia on: 12/03/2024 11:18 AM MEAT STOCK CLERK
--- OUTSIDE RECORDS SUMMARY | 2024-12-03 11:19 | XMS_ITS | Encounter Summary ---
Author Organization [facility] Address [address] [place] [address] Care Team Providers Care Case Assistant Name Role Phone Not Found, Stl Primary Care Provider Unavailabl e Encounter Details Date Type Department Care Team (Late st Contact Info) Description 12/04/2007 Outpatient Historical 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
--- OUTSIDE RECORDS SUMMARY | 2024-12-03 11:19 | XMS_ITS | Encounter Summary ---
Author Organization [facility] Address 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
--- OUTSIDE RECORDS SUMMARY | 2024-12-03 11:19 | XMS_ITS | Encounter Summary ---
Author Organization [facility] Address 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
--- OUTSIDE RECORDS SUMMARY | 2024-12-03 11:19 | XMS_ITS | Encounter Summary ---
Author Organization [facility] Address 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
--- OUTSIDE RECORDS SUMMARY | 2024-12-03 11:19 | XMS_ITS | Clinical Summary ---
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 Gender Identity Not on file Sexual Orientation Not on file Plan of Treatment Health Maintenance Due Date Last Done Comments DTAP/TDAP/TD VACCINES (1 - Tdap) 1996 HEPATITIS B VACCINES (1 of 3 - 19+ 3-dose series) 1996 CERVICAL CANCER SCREENING 2007 BREAST CANCER SCREENING 2017 12/22/2009, 12/16 COLORECTAL SCREENING 2022 Colorectal Cancer Screening 2022 FIT-DNA Q 3 years 2022 FIT/FOBT Q 1 year 2022 Flex Sig/CT Colonography Q 5 years 2022 INFLUENZA VACCINE (#1) 2024 Procedures Procedure Name Priority Date/Time Associated Diagnosis Comments MAMMO SCREEN BILAT W OR WO CAD Routine 12/22/2009 10:06 AM CDT Other Screening Mammogram Family History of Breast Cancer from Last 3 Months or Most Recently Relevant to Health Maintenance Results * MAMMO DIGITAL SCREEN BILAT (12/22/2009 10:06 AM CDT) Anatomical Region Laterality Modality Breast Bilateral Mammography Impressions 12/22/2009 2:26 PM CDT : Stable screening mammogram Recommend routine followup OVERALL ASSESSMENT: BIRADS 1 - Negative Narrative 12/22/2009 2:26 PM CDT BILATERAL SCREENING DIGITAL MAMMOGRAMS WITH COMPUTER ASSISTED DIAGNOSIS 12/22/09 HISTORY: Annual screening study. FINDINGS: Comparison is made to 12/16/08. The images were reviewed using the CAD system. The breast parenchyma is heterogeneously dense. No new dominant masses, suspicious calcifications or areas of parenchymal asymmetry or distortion are identified. Procedure Note Camilla Michel - 12/23/2009 BILATERAL SCREENING DIGITAL MAMMOGRAMS WITH COMPUTER ASSISTED DIAGNOSIS12/22/09 HISTORY: Annual screening study. FINDINGS: Comparison is made to 12/16/08. The images were reviewed usingthe CAD system. The breast parenchyma is heterogeneously dense. No newdominant masses, suspicious calcifications or areas of parenchymalasymmetry or distortion are identified. IMPRESSION: Stable screening mammogram Recommend routine followup OVERALL ASSESSMENT: BIRADS 1 - Negative Cris Boyd MD MAMMO ORDERABLES Final Res ult from Last 3 Months or Most Recently Relevant to Health Maintenance Insurance BC[employer] BLUE ACCESS/TRUE BLUE PPO Care Teams Linseed Oil Order Filler Relationship Specialty Start Date End Date Not Found, Stl NO ADDRESS ON FILE PCP - General 09/12/12
--- OUTSIDE RECORDS SUMMARY | 2024-12-03 11:19 | XMS_ITS | Encounter Summary ---
Author Organization [facility] Address 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 Gender Identity Not on file Sexual Orientation Not on file documented as of this encounter Plan of Treatment Not on file documented as of this encounter Procedures Procedure Name Priority Date/Time Associated Diagnosis Comments MAMMO SCREEN BILAT W OR WO CAD Routine 12/16/2008 9:52 AM CDT documented in this encounter Results * MAMMO DIGITAL SCREEN BILAT (12/16/2008 9:52 AM CDT) Anatomical Region Laterality Modality Breast Bilateral Other 12/16/2008 9:52 AM CDT Narrative 12/18/2008 8:33 AM CDT [address] [address] Admit Date: 12/16/2008 KEYSHA AREVALO Sex: F Admit Prov: MARISOL BOYD Date: 1975 Primary Care Prov: PCP, NONE CMRN: [id number] [facility] [address] [place] [address] IMAGING SERVICES Ordering Prov: MARISOL BOYD Accession Number: [id number] Interpretation BILATERAL SCREENING DIGITAL MAMMOGRAMS WITH COMPUTER ASSISTED DIAGNOSIS 12/16/2008 History: Annual screening study. This is the patient's baseline mammogram. The images were reviewed using the CAD system. The breast parenchyma is heterogeneously dense. No new dominant masses, suspicious calcifications or areas of parenchymal asymmetry or distortion are identified. Impression: Negative screening mammogram Recommend routine followup Overall assessment: BIRADS category 1 - Negative Assessment BIRADS: 1-Negative Recommendation: Normal interval follow-up Dictated by: CAMILLA MICHEL Electronically signed by: CAMILLA MICHEL 12/18/2008 08:31 Transcribed: 12/16/2008 21:19 AMK Procedure Note Camilla Michel - 12/18/2008 [id number] [place], [place] [address] Admit Date: 12/16/2008 KEYSHA AREVALO Sex: F Admit Prov: MARISOL BOYD Date: 1975 Primary Care Prov: PCP, NONE CMRN: [id number] [facility] [address] [place] [address] IMAGING SERVICES Ordering Prov: MARISOL BOYD Interpretation BILATERAL SCREENING DIGITAL MAMMOGRAMS WITH COMPUTER ASSISTEDDIAGNOSIS 12/16/2008 History: Annual screening study. This is the patient's baseline mammogram. The images were reviewedusing the CAD system. The breast parenchyma is heterogeneously dense. Nonew dominant masses, suspicious calcifications or areas of parenchymal asymmetry or distortion are identified. Impression: Negative screening mammogram Recommend routine followup Overall assessment: BIRADS category 1 - Negative Assessment BIRADS: 1-Negative Recommendation: Normal interval follow-up Dictated by: CAMILLA MICHEL Electronically signed by: CAMILLA MICHEL 12/18/2008 08:31 Transcribed: 12/16/2008 21:19 AMK Marisol Boyd MD MAMMO ORDERABLES Final Res ult documented in this encounter Visit Diagnoses Diagnosis Other screening mammogram documented in this encounter Care Teams Dba Manager Relationship Specialty Start Date End Date Not Found, Stl NO ADDRESS ON FILE PCP - General 09/12/12 documented as of this encounter
--- OUTSIDE RECORDS SUMMARY | 2024-12-03 11:19 | XMS_ITS | Encounter Summary ---
Author Organization [facility] Address 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
--- OUTSIDE RECORDS SUMMARY | 2024-12-03 11:19 | XMS_ITS | Encounter Summary ---
Author Organization [facility] Address 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
--- OUTSIDE RECORDS SUMMARY | 2024-12-03 11:19 | XMS_ITS | Encounter Summary ---
Author Organization [facility] Address [address] [place] [address] Care Team Providers Care Health Club Attendant Name Role Phone Not Found, Stl Primary Care Provider Unavailabl e Encounter Details Date Type Department Care Team (Late st Contact Info) Description 09/11/2007 Outpatient Historical [facility] Maternal and Ground Floor [address] [place] [phone] Clayton Garsia MD [address] [facility] [address] [place] [address] Social History Tobacco Use Types Packs/Day Years Used Date Smoking Tobacco: Never Assessed Comments Unknown Sex and Gender Information Value Date Recorded Sex Assigned at Not on file 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
--- OUTSIDE RECORDS SUMMARY | 2024-12-03 11:19 | XMS_ITS | Encounter Summary ---
Author Organization [facility] Address [address] [place] [address] Care Team Providers Care Door Technician Name Role Phone Not Found, Stl Primary Care Provider Unavailabl e Encounter Details Date Type Department Care Team (Late st Contact Info) Description 01/13/2008 Inpatient Historical HIS OB PREADMIT Marisol Boyd MD [address] [place] [phone] Yariel Restrepo MD [address] [place] [phone] Normal Delivery Social History Tobacco Use Types Packs/Day Years Used Date Smoking Tobacco: Never Assessed Comments Unknown Sex and Gender Information Value Date Recorded Sex Assigned at Not on file Legal Sex Female 5:28 AM [employer] Gender Identity Not on file Sexual Orientation Not on file documented as of this encounter Plan of Treatment Not on file documented as of this encounter Procedures Procedure Name Priority Date/Time Associated Diagnosis Comments PATHOLOGY Routine 01/13/2008 5:00 PM CDT CBC WITH DIFFERENTIAL Stat 01/13/2008 8:11 AM CDT documented in this encounter Results * PATHOLOGY (01/13/2008 5:00 PM CDT) FINAL REPORT [facility] [address] [place] [id number] Patient: KEYSHA AREVALO : 1975 Procedure Date: 01/13/2008 Accession Date: 01/15/2008 Case No: [id number] Ordering Dr: MARISOL BOYD Case types AW, BW, FW, NW and SH are performed by [facility], [place], [place] SURGICAL PATHOLOGY & NON-GYNECOLOGIC CYTOPATHOLOGY REPORT DIAGNOSIS PLACENTA, DELIVERY: - SMALL FOR GESTATIONAL AGE (25TH PERCENTILE BY WEIGHT). - ACUTE CHORIOAMNIONITIS. - CHRONIC VILLITIS, MULTIFOCAL. - INTERVILLOUS THROMBOHEMATOMA. Specimen Description: Placenta. Operative Procedure: Vaginal delivery. Patient Information/History/ Diagnosis: Intrauterine 40 weeks, , uterine invasion ? focal accreta. Gross: Received in one container labeled Keysha Arevalo. and designated no micro is a 397-g, 20.0 x 18.0 x 1.5-cm carlson placenta. The surface is blue-carroll and unremarkable. The 43.0-cm long x 1.6-cm in diameter attached segment of umbilical cord is centrally inserted 7.0 cm from the closest margin, is normally torsed and has a vascular pattern of three vessels. The membranes are pink-rausch, thin and translucent. They are marginally inserted and ruptured 7.0 cm from the margin. The maternal surface is focally disrupted but appears complete with no retroplacental hemorrhage. Sectioning of the parenchyma demonstrates a red, spongy cut surface remarkable for one peripheral area of yellow-rausch induration, 0.8 cm in greatest dimension. There is also one central area of white-rausch induration, 1.0 cm in greatest dimension. Together the lesions occupy less than 1% of the parenchyma. Reel System Operator sections are submitted as follows: A1-umbilical cord and membranes; A2-peripheral area of induration; A3-central area of induration; A4 and A5-central placental parenchyma. [facility] 01.16.2008 10:29 am Microscopic: The slides are labeled Keysha Arevalo [id number]. The weight of this placenta falls near the 25th percentile for a 40-week gestation. Chorionic villi appear mature. Sections of the membranes show infiltration of the subchorionic fibrin layer by polymorphonuclear leukocytes, consistent with grade 2, stage II acute chorioamnionitis. No inflammatory changes are noted in umbilical cord vessels. Sections of the placental parenchyma also show multiple foci of chronic villitis. Multiple intervillous thrombohematomas are noted in blocks A2 and A3. TIA/TMZ 01.19.2008 08:21 am Staging Form: NO ELECTRONIC SIGNATURE FOR KACIE SANTOS M.D.- 01/19/08 03:14 pm INTERFACE SYSTEM 01/13/2008 5:00 PM CDT Marisol Boyd MD PATHOLOGY/CYTOLOGY ORDERAB LES Final Result INTERFACE SYSTEM Refer to clinic/hospital department * (ABNORMAL) CBC WITH DIFFERENTIAL (01/13/2008 8:11 AM CDT) HEMATOCRIT 36.4 35.5 - 44.0 % [facility] RDW-STDEV 42.3 37.1 - 48.7 fL [facility] RBC 3.97 3.90 - 4.90 M/uL [facility] MCHC 33.5 31.5 - 35.5 % [facility] MCV 91.7 82.0 - 99.0 fL [facility] PLATELETS 214 140 - 350 K/uL [facility] HEMOGLOBIN 12.2 11.8 - 14.8 g/dL [facility] RDW 12.6 11.5 - 14.5 % [facility] WBC 10.1(H) 4.0 - 9.8 K/uL [facility] MCH 30.7 27.2 - 32.6 pg [facility] MPV 10.8 9.3 - 12.4 fL [facility] BASOPHILS ABSOLUTE 0.03 0.00 - 0.20 K/uL [facility] MONOCYTES 7 3 - 13 % [facility] NEUTROPHILS 72(H) 45 - 70 % [facility] NEUTROPHIL ABSOLUTE 7.24(H) 1.90 - 7.00 K/uL [facility] EOSINOPHILS 1 0 - 7 % [facility] MONOCYTE ABSOLUTE 0.72 0.10 - 1.30 K/uL [facility] EOSINOPHIL ABSOLUTE 0.10 0.00 - 0.70 K/uL [facility] LYMPHOCYTES 20 16 - 45 % [facility] LYMPHOCYTE ABSOLUTE 2.02 0.70 - 4.50 K/uL [facility] BASOPHILS 0 0 - 2 % [facility] Blood specimen (specimen) 01/13/2008 8:11 AM CDT 01/13/2008 8:22 AM CDT us Marisol Boyd MD HEMATOLOGY ORDERABLES Edit ed INTERFACE SYSTEM Refer to clinic/hospital department [facility] [address] [place] [id number] documented in this encounter Visit Diagnoses Diagnosis Normal delivery documented in this encounter Care Teams Door Technician Relationship Specialty Start Date End Date Not Found, Stl NO ADDRESS ON FILE PCP - General 09/12/12 documented as of this encounter
== END 2024-12-03 10:05 | disposition home or self-care (01) ==
PROVIDERS: PCP Family Medicine; Visit Provider Nurse Practitioner Obstetrics & Gynecology
DX: R92.343 Mammographic extreme density, bilateral breasts (principal)
CPT/HCPCS: 77049; A9577; C8908

== ENCOUNTER 2025-08-16 11:21 | Outpatient (CLI) | payer BC, SELFPAY ==
--- NOTE | ~2025-08-16 | MM_ITS ---
EXAMINATION: MM screening crissy BI w izabela HISTORY: Screening TECHNIQUE: Craniocaudal and mediolateral oblique 3-D tomosynthesis images were obtained and synthetic 2-D images were generated. CAD analysis was submitted and interpreted. COMPARISON: Comparison to multiple prior studies sequentially, with oldest reviewed study dated 10/20/2017. BREAST PARENCHYMAL COMPOSITION: Dense: The breasts are heterogeneously dense, which may obscure small masses FINDINGS: Possible developing architectural distortion upper half of the right breast on MLO view, posterior third. The left breast is stable without evidence for malignancy. Possible developing architectural distortion upper half of the right breast on MLO view, posterior third. IMPRESSION: 1. Developing right breast asymmetry superiorly on MLO view, posterior third. 2. Additional mammographic views and possible breast ultrasound are recommended. BI-RADS Category 0: Incomplete: Needs additional imaging evaluation. Reviewed, dictated and finalized at location O. EKEEPER IMPRESSION: 1. Developing right breast asymmetry superiorly on MLO view, posterior third. 2. Additional mammographic views and possible breast ultrasound are recommended . BI-RADS Category 0: Incomplete: Needs additional imaging evaluation.
== END 2025-08-16 11:22 | disposition home or self-care (01) ==
LOC: MICIMG 11:21
PROVIDERS: PCP Family Medicine; Visit Provider Family Medicine
DX: Z12.31 Encounter for screening mammogram for malignant neoplasm of breast (principal); R92.8 Other abnormal and inconclusive findings on diagnostic imaging of breast
CPT/HCPCS: 77063; 77067

== ENCOUNTER 2025-09-26 10:37 | Outpatient (CLI) | payer BC, SELFPAY ==
--- OUTSIDE RECORDS SUMMARY | 2024-04-18 03:00 | XMS_ITS ---
Author Organization [facility] Address [address] [place] [phone] Care Team Providers Care Flower Machine Operator Name Role Phone Dr. Lay Bauer Primary Care Provider [phone] Migration, Provider Unavailable Unavailable Results Component Value Reference Range Notes Basic Metabolic Panel Reviewed date:04/19/2024 12:00:00 AM Interpretation: Performing Lab: Notes/Report: ANION GAP 8.7 mmol/L BUN 16 mg/dL Calcium Lvl 8.5 mg/dL Chloride Lvl 105 mmol/L CO2 24 mmol/L Creatinine Lvl 1.12 mg/dL eGFR CKD-EPI 61 mL/min/1.73 m2 Glucose Lvl 88 mg/dL Potassium Lvl 4.4 mmol/L Sodium Lvl 138 mmol/L REASON FOR VISIT [facility] [place] Sex Assigned At : Social History Observation Description Sex Assigned At Female Encounters Encounter Location Date Provider Diagnosis [facility] [address] [place] [address] 04/18/2024 Provider Migration Other specified abnormal findings of blood chemistry R79.89 Assessments Encounter Date Diagnosis (ICD Code) Assessment Notes Treatment Notes Treatment Clinical Notes Section Notes 04/18/2024 Other specified abnormal findings of blood chemistry (ICD-10 - R79.89) Plan Of Treatment No Information Progress Notes * Livia AREVALO LDOB: 7 (50 yo F)Acc No.[id number]:04/18/2024 Patient: Livia Vinson Provider: Tamiko Boss :1975 A ge:49 Y S ex:Female Date:04/18/2024 Phone: Address:[address] [place] [address], [phone] Pcp:Dr. Lay Bauer Subjective: * Chief Complaints: * E MRCheryl Objective: Past Vitals:* 04/02/2024 BP: 118/70 mm Hg, HR: 84 /mi n, Oxygen sat %: 99 %, Wt: 165.19 lbs, Wt-k.93 kg * 03/30/2023 BP: 108/60 mm Hg, HR: 76 /mi n, Oxygen sat %: 98 %, Wt: 172.00 lbs, Wt-k.02 kg Assessment: * Assessment: 1. O ther specified abnormal findings of blood chemistry - R79.89 S pecify :Src Diagnosis Name: Elevated serum creatinine Plan: * Labs: * L ab: Basic Metabolic Panel Value Reference Range A NION GAP 8.7 mmol/L * B UN 16 mg/dL * C alcium Lvl 8.5 mg/dL * C hloride Lvl 105 mmol/L * C O2 24 mmol/L * C reatinine Lvl 1.12 mg/dL * e GFR CKD-EPI 61 mL/min/1.73 m2 * G lucose Lvl 88 mg/dL * P otassium Lvl 4.4 mmol/L * S odium Lvl 138 mmol/L * eGFR CKD-EPI: _ T he CKD-EPI equation is validated in individuals 18 years of age and older. It i s less accurate in patients with extremes of muscle mass, restriction of d ietary protein, ingestion of creatine, extra-renal metabolism of creatinine, or t reatment with medications that affect renal tubular creatinine secretion. _ G FR Categories in Chronic Kidney Disease (CKD) _ G FR GFR (mL/min/1.73 C ategory: square meters): Interpretation: _ G 1 90 or greater Normal or high* G 2 60-89 Mild decrease* G 3a 45-59 Mild to moderate decrease G 3b 30-44 Moderate to severe decrease G 4 15-29 Severe decrease G 5 14 or less Kidney failure _ _ * In the absence of evidence of kidney damage, neither GFR c ategory G1 nor G2 fulfill the criteria for CKD (Kidney Int Suppl 2013;3:1-150) _ Glucose Lvl: _ A DA risk stratification for diabetes < 100 mg/dL = Normal 1 00-125 mg/dL = Increased risk for future diabetes > =126 mg/dL = Diabetes, if on more than one testing occasion _ * Electronic signature of Esa miranda Migration on 09/26/2025 at 11:39 AM SPECIAL EDUCATION RESOURCE ROOM TEACHER Sign off status: Pending * Provider: Tamiko barba Migration Date: 0 04/18/2024 Generated for Sade molina/Alma/Fauzia on: 1 11/27/2024 11:39 AM SPECIAL EDUCATION RESOURCE ROOM TEACHER
--- OUTSIDE RECORDS SUMMARY | 2024-05-11 03:00 | XMS_ITS ---
Author Organization [facility] Address [address] [place] [phone] Care Team Providers Care Promotions Executive Producer Name Role Phone Dr. Lay Bauer Primary Care Provider [phone] Migration, Provider Unavailable Unavailable REASON FOR VISIT [facility] [place] Social History Sex Assigned At : Social History Observation Description Sex Assigned At Female Encounters Encounter Location Date Provider Diagnosis [facility] [address] [place] [address] 05/11/2024 Provider Migration Other specified abnormal findings of blood chemistry R79.89 Assessments Encounter Date Diagnosis (ICD Code) Assessment Notes Treatment Notes Treatment Clinical Notes Section Notes 05/11/2024 Other specified abnormal findings of blood chemistry (ICD-10 - R79.89) Plan Of Treatment No Information Progress Notes * Livia AREVALO LDOB: 7 (50 yo F)Acc No.[id number]:05/11/2024 Patient: Livia Vinson Provider: Tamiko Boss :1975 A ge:49 Y S ex:Female Date:05/11/2024 Phone: Address:[address] [place] [phone] Pcp:Dr. Lay Bauer Subjective: * Chief Complaints: * E MR-Frederic Objective: Past Vitals:* 04/02/2024 BP: 118/70 mm [...] pecify :Src Diagnosis Name: Elevated serum creatinine * Electronic signature of Prov ider Migration on 09/26/2025 at 11:38 AM AERIAL SPRAYER Sign off status: Pending * Provider: Tamiko barba Migration Date: 0 05/11/2024 Generated for Sade molina/Alma/Ninoitting on: 1 11/27/2024 11:38 AM AERIAL SPRAYER
--- OUTSIDE RECORDS SUMMARY | 2024-08-20 03:00 | XMS_ITS ---
Author Organization [facility] Address [address] [place] [phone] Care Team Providers Care Head Teacher Name Role Phone Dr. Lay Bauer Primary Care Provider [phone] Migration, Provider Unavailable Unavailable REASON FOR VISIT [facility] [place] Social [place] Sex Assigned At : Social History Observation Description Sex Assigned At Female Encounters Encounter Location Date Provider Diagnosis [facility] [address] [place] [address] 08/20/2024 Provider Migration Other abnormal and inconclusive findings on diagnostic imaging of breast R92.8 Assessments Encounter Date Diagnosis (ICD Code) Assessment Notes Treatment Notes Treatment Clinical Notes Section Notes 08/20/2024 Other abnormal and inconclusive findings on diagnostic imaging of breast (ICD-10 - R92.8) Plan Of Treatment No Information Progress Notes * Livia AREVALO LDOB: 7 (50 yo F)Acc No.[id number]:08/20/2024 Patient: Livia Vinson Provider: Tamiko barba Migration :1975 A ge:49 Y S ex:Female Date:08/20/2024 Phone: Address:[address] [place], [place] [phone] Pcp:Dr. Lay Bauer Subjective: * Chief Complaints: * E MR-Frederic Objective: Past Vitals:* 04/02/2024 BP: 118/70 mm Hg, HR: 84 /mi n, Oxygen sat %: 99 %, Wt: 165.19 lbs, Wt-k.93 kg * 03/30/2023 BP: 108/60 mm Hg, HR: 76 /mi n, Oxygen sat %: 98 %, Wt: 172.00 lbs, Wt-k.02 kg Assessment: * Assessment: 1. O ther abnormal and inconclusive findings on diagnostic imaging of breast - R92.8 S pecify :Src Diagnosis Name: Abnormal mammogram of both breasts * Electronic signature of Prov ider Migration on 09/26/2025 at 11:38 AM REAMING MACHINE OPERATOR Sign off status: Pending * Provider: Tamiko barba Migration Date: 10/20/2023 Generated for Sade molina/Alma/Ninoitting on: 11/27/2024 11:38 AM REAMING MACHINE OPERATOR
--- OUTSIDE RECORDS SUMMARY | 2024-08-29 08:00 | XMS_ITS ---
Author Organization [facility] Address [address] [place] [phone] Care Team Providers Care Substation Technician Name Role Phone Dr. Lay Bauer Primary Care Provider [phone] REASON FOR VISIT discuss nephrology consult - feel her muscle mass is the issue. Social History Sex Assigned At : Social History Observation Description Sex Assigned At Female Encounters Encounter Location Date Provider Diagnosis [address] [address] 08/29/2024 Dr. Lay Bauer Major depressive disorder, recurrent, in partial remission F33.41 ; Attention and concentration deficit R41.840 ; Other abnormal and inconclusive findings on diagnostic imaging of breast R92.8 and Other specified abnormal findings of blood chemistry R79.89 Assessments Encounter Date Diagnosis (ICD Code) Assessment Notes Treatment Notes Treatment Clinical Notes Section Notes 08/29/2024 Major depressive disorder, recurrent, in partial remission (ICD-10 - F33.41) 08/29/2024 Attention and concentration deficit (ICD-10 - R41.840) 08/29/2024 Other abnormal and inconclusive findings on diagnostic imaging of breast (ICD-10 - R92.8) 08/29/2024 Other specified abnormal findings of blood chemistry (ICD-10 - R79.89) Plan Of Treatment No Information Progress Notes * MICKEY Livia LDOB: 7 (50 yo F)Acc No.[id number]:08/29/2024 Patient: Livia Vinson Provider: Rossana Bauer MD :1975 A ge:49 Y S ex:Female Date:08/29/2024 Phone: Address:[address] [place], [phone] Subjective: * Chief Complaints: * Stephan maria luz nephrology consult - feel her muscle mass is the issue. Objective: Past Vitals:* 04/02/2024 BP: 118/70 mm Hg, HR: 84 /mi n, Oxygen sat %: 99 %, Wt: 165.19 lbs, Wt-k.93 kg * 03/30/2023 BP: 108/60 mm Hg, HR: 76 /mi n, Oxygen sat %: 98 %, Wt: 172.00 lbs, Wt-k.02 kg Assessment: * Assessment: 1. M ajor depressive disorder, recurrent, in partial remission - F33.41 S pecify :Src Diagnosis Name: Recurrent major depressive disorder, in partial remission 2 . A ttention and concentration deficit - R41.840 S pecify :Src Diagnosis Name: Concentration deficit 3 . O ther specified abnormal findings of blood chemistry - R79.89 ?Specify :Src Diagnosis Name: Elevated serum creatinine 4 . O ther abnormal and inconclusive findings on diagnostic imaging of breast - R92.8 S pecify :Src Diagnosis Name: Abnormal mammogram of both breasts * Electronic signature of Dr. Lay Bauer on 09/26/2025 at 11:38 AM BELT LACER Sign off status: Pending * Provider: Rossana Bauer MD Date: 10/29/2023 Generated for Sade molina/Alma/Ninoitting on: 11/27/2024 11:38 AM BELT LACER
--- OUTSIDE RECORDS SUMMARY | 2024-09-08 03:00 | XMS_ITS ---
Author Organization [facility] Address [address] [place] [address] Care Team Providers Care Floor Cashier Name Role Phone Dr. Lay Bauer Primary Care Provider [phone] Migration, Provider Unavailable Unavailable REASON FOR VISIT [facility] [place] Sex Assigned At : Social History Observation Description Sex Assigned At Female Encounters Encounter Location Date Provider Diagnosis [facility] [address] [place] [address] 09/08/2024 Provider Migration Plan Of Treatment Medication Medication Name Sig Start Date Stop Date Notes Flonase Allergy Relief nasal; Duration: 0 06/16/202304/01 ,discontinuereason:D iscontinued *Pick strength-form from [employer] for eRX* Sertraline HCl 50 MG Tablet 1 Oral every night at bedtime; Duration: 90 03/30/2023 03/23/2024 buPROPion HCl ER (XL) 300 MG Tablet Extended Release 24 Hour 1 Oral every day; Duration: 0 08/08/2024 08/28/2024 ,discontinuereason:R efilled valACYclovir HCl 500 MG Tablet 1 Oral every day; Duration: 0 03/30/2023 03/30/2023 traZODone HCl 50 MG Tablet 1 Oral every night at bedtime; Duration: 90 03/30/2023 04/01/2024 ,discontinuereason:D iscontinued Pantoprazole Sodium 40 MG Tablet Delayed Release 1 Oral every day; Duration: 90 12/05/2023 04/01/2024 ,discontinuereason:D iscontinued buPROPion HCl ER (XL) 150 MG Tablet Extended Release 24 Hour 1 Oral every day; Duration: 0 08/29/2024 08/29/2024 Famotidine 40 MG Tablet Oral; Duration: 0 06/16/202304/01 ,discontinuereason:D iscontinued Progress Notes * Livia AREVALO LDOB: 7 (50 yo F)Acc No.[id number]:09/08/2024 Patient: Livia MOBLEY :1975 A ge:49 Y S ex:Female Phone: Address:[address] [place] [phone] * Refills Stop valACYclovir HCl Tablet, 500 MG, Oral, 1, every day, 0 Stop buPROPion HCl ER (XL) Tablet Extended Release 24 Hour, 300 MG, Oral, 90, 1, every day, 0 Stop Flonase Allergy Relief, nasal, 0 Stop traZODone HCl Tablet, 50 MG, Oral, 90, 1, every night at bedtime, 90 Stop valACYclovir HCl Tablet, 500 MG, Oral, 90, 1, every day, 0 Stop buPROPion HCl ER (XL) Tablet Extended Release 24 Hour, 150 MG, Oral, 90, 1, every day, 0 Stop Sertraline HCl Tablet, 50 MG, Oral, 90, 1, every night at bedtime, 90 Stop valACYclovir HCl Tablet, 500 MG, Oral, 90, 1, every day, 0 Stop Famotidine Tablet, 40 MG, Oral, 0 Stop Sertraline HCl Tablet, 50 MG, Oral, 1, every night at bedtime, 0 Stop Sertraline HCl Tablet, 50 MG, Oral, 30, 1, every night at bedtime, 30 Stop valACYclovir HCl Tablet, 500 MG, Oral, 90, 1, every day, 0 Stop valACYclovir HCl Tablet, 500 MG, Oral, 90, 1, every day, 0 Stop buPROPion HCl ER (XL) Tablet Extended Release 24 Hour, 300 MG, Oral, 30, 1, every day, 30 Stop buPROPion HCl ER (XL) Tablet Extended Release 24 Hour, 300 MG, Oral, 30, 1, every day, 30 Stop buPROPion HCl ER (XL) Tablet Extended Release 24 Hour, 300 MG, Oral, 90, 1, every day, 90 Stop buPROPion HCl ER (XL) Tablet Extended Release 24 Hour, 300 MG, Oral, 90, 1, every day, 0 Stop Pantoprazole Sodium Tablet Delayed Release, 40 MG, Oral, 90, 1, every day, 90 Stop Pantoprazole Sodium Tablet Delayed Release, 40 MG, Oral, 90, 1, every day, 0 Stop Pantoprazole Sodium Tablet Delayed Release, 40 MG, Oral, 90, 1, every day, 90 Stop valACYclovir HCl Tablet, 500 MG, Oral, 90, 1, every day, 0 Stop Pantoprazole Sodium Tablet Delayed Release, 40 MG, Oral, 30, 30 Stop buPROPion HCl ER (XL) Tablet Extended Release 24 Hour, 300 MG, Oral, 90, 1, every day, 90 Stop Sertraline HCl Tablet, 50 MG, Oral, 90, 1, every night at bedtime, 90 Stop traZODone HCl Tablet, 50 MG, Oral, 30, 1, every night at bedtime, 30 Stop valACYclovir HCl Tablet, 500 MG, Oral, 90, 1, every day, 0 Subjective: * Chief Complaints: * E MR-Frederic Objective: Past Vitals:* 04/02/2024 BP: 118/70 mm Hg, HR: 84 /mi n, Oxygen sat %: 99 %, Wt: 165.19 lbs, Wt-k.93 kg * 03/30/2023 BP: 108/60 mm Hg, HR: 76 /mi n, Oxygen sat %: 98 %, Wt: 172.00 lbs, Wt-k.02 kg * * Date:
--- OUTSIDE RECORDS SUMMARY | 2024-09-09 03:00 | XMS_ITS ---
Author Organization [facility] Address [address] [place] [phone] Care Team Providers Care Dance Critic Name Role Phone Dr. Lay Bauer Primary Care Provider [phone] Migration, Provider Unavailable Unavailable Allergies Allergen (clinical drug ingredient) Drug/Non Drug Allergy documented on EMR Reaction Allergy Type Onset Date Status coconut allergenic extract Coconut (Diagnostic) Unknown Drug Allergy 01/28/2022 Active REASON FOR VISIT [facility] [place] Medication SIG (Take, Route, Frequency, Duration) Notes Start Date End Date Status Triamcinolone Acetonide 0.5 % Cream External two times a day; Duration: 0 10/29/2022 Active Allergy oral; Duration: 0 *Pick strength-form from [employer] for eRX* 06/16/2023 Active Social History Sex Assigned At : Social History Observation Description Sex Assigned At Female Social History Additional Details Category Social Info Options Details Migrated Social History Migrated Social History Number of children:3 , Marital status: , Tobacco history:Never smoker Encounters Encounter Location Date Provider Diagnosis [address] [address] 09/09/2024 Provider Migration Plan Of Treatment No Information Progress Notes * Livia AREVALO LDOB: 7 (50 yo F)Acc No.[id number]:09/09/2024 Patient: Reyes HICKS Livia Denton :1975 A ge:49 Y S ex:Female Phone: Address:[address] [place] [address], [phone] Subjective: * Chief Complaints: * E MR-Frederic * Social History: M igrated Social History: M igrated Social History: Number of children:3,Marital status:,Tobacco history:Never smoker. * Medications: T akingAllergy oral , Notes to Pharmacist: *Pick strength-form from [employer] for eRX*Triamcinolone Acetonide 0.5 % Cream External two times a day Taking Allergy oral , Notes to Pharmacist: *Pick strength-form from [employer] for eRX*Taking Triamcinolone Acetonide 0.5 % Cream External two times a day * Allergies: C oconut (Diagnostic): Allergy - Onset Date 01/28/2022 Objective: Past Vitals:* 04/02/2024 BP: 118/70 mm Hg, HR: 84 /mi n, Oxygen sat %: 99 %, Wt: 165.19 lbs, Wt-k.93 kg * 03/30/2023 BP: 108/60 mm Hg, HR: 76 /mi n, Oxygen sat %: 98 %, Wt: 172.00 lbs, Wt-k.02 kg * * Date:
--- NOTE | ~2025-09-26 | MM_ITS ---
EXAMINATION: MM diagnostic crissy RT w izabela INDICATION: 50-year old female; BI-RADS 0, callback to evaluate Right breast asymmetry COMPARISON: 08/16/2025 TECHNIQUE: Digital breast tomosynthesis True lateral view and spot compression pain CC and MLO views of Right breast were obtained. FINDINGS: The breasts are heterogeneously dense, which may obscure small masses. The asymmetry seen in the Superior Right breast on the screening mammogram effaces on additional views, compatible with normal overlapping tissue.. IMPRESSION: Right breast finding represents superimposition of fibroglandular tissue. No further investigation necessary. RECOMMENDATION: Annual screening mammography in 12 months BI-RADS 2, BENIGN Reviewed, dictated and finalized at location A. D SWALLOWER IMPRESSION: Right breast finding represents superimposition of fibroglandular tissue. No fu rther investigation necessary. RECOMMENDATION: Annual screening mammography in 12 months BI-RADS 2, BENIGN
--- OUTSIDE RECORDS SUMMARY | 2025-09-26 11:38 | XMS_ITS | Data Portability ---
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 Plan of Treatment Reminders Order Date Submit Date Provider Last Modified By Organization Details Last Modified Time Details Appointments [employer]BER EST 2025 02:00P Scot Pozo MD Not available Not available Not available Lab genetic disease analysis, blood or tissue - TEST ORDER CLARIFICA TION: Due to constrain ts of my EMR system, I am limited to one test selection , PLEASE NOTE I am ordering Integrate d BRAC with Myrisk AND Colaris plus Myrisk, AND Colaris AP with Myrisk. Please cancel the tests the patient does not meet criteria for. If the patient meets criteria for all three tests, order integrate d BRAC with Myrisk and cancel the others. If the patient has had previous hereditar y cancer testing with Myriad, please run the latest updated Myriad Myrisk test. Provider Attestati on of Genetic Counselin g I am aware that genetic testing of unaffecte d relatives may be more informati ve, HOWEVER, ALL AFFECTED RELATIVES WITHIN THE PATIENT'S FAMILY HISTORY DECLINED GENETIC TESTING, ARE , OR ARE UNAVAILAB LE FOR TESTING AT THIS TIME. I affirm that I have provided genetic counselin g to my patient and, by marking x and signing below, I agree that I have satisfied the counselin g requireme nts. __X__ Review and collectio n of personal and/or family history of cancer and/or genetic disorders . __X__Ethn ic backgroun d of the patient. __X__Eval uation of the patient s cancer risk. __X__Prep ared the patient for possible outcomes of testing including positive (pathogen ic, likely pathogeni c), negative, and uncertain findings and follow-up medical managemen t. __X__Desc ription of the benefits, risks, and limitatio ns of genetic testing. __X__Plan to engage in post-test counselin g. Dear director of casework department I am writing to request coverage for the above patient using [facility] ry Cancer Panel. I have determine d that this test is medically necessary for the above patient due to the patient's personal and or family cancer history and medical guideline s recommend ations within the [facility] t[facility] screening assessmen t through which my patient completed and self-iden tified. Medical society guideline s recommend an aggressiv e approach to medical managemen t for individua ls identifie d as having a genetic mutation, test results are necessary in choosing the most appropria te course of treatment and/or surveilla nce. In addition, mutation carriers who have already been diagnosed with cancer have a significa ntly increased risk of developin g another primary cancer. The National Comprehen sive Cancer Network, ACOG, USPSTF and other professio nal societies have published guideline s for testing and managing patients with hereditar y breast and ovarian cancer and colon-rel ated hsieh syndrome. The [place] Society of Clinical Oncology recommend s that genetic testing be offered to individua ls with suspected inherited cancer risk in whom test results will aid in medical managemen t decision- making. This patient received a comprehen sive overview of the benefits and limitatio ns of genetic testing and thorough pre-test counselin g and interacti ve videos. The patient has provided informed consent to pursue genetic testing, based on my discussio n of the personal and/or family history, the potential test results, and the implicati ons for medical managemen t. If positive, the patient has agreed to change medical managemen t to reduce risk for developin g cancer. If negative, the patient agreed to re-assess their risk knowing they do not carry a gene mutation and will pursue additiona l risk reducing surveilla nce options if necessary . This patient was counseled and tested by me today. 2024 025 doney [facility], [address], [place], [address], 05/30/2025 09:51:28 HPV E6+E7 mRNA, qualitati ve PCR, cervix 2024 025 [facility], [address] [place], [address], 03/26/2025 15:10:14 pap, LB 2024 025 [facility], [address] [facility], [place], [address], 03/29/2025 15:40:53 Referral None recorded. Procedures None recorded. Surgeries None recorded. Imaging MAMMO, screening , tomosynth esis, bilateral - MyRisk Negative, Lifetime Tyrer Cuzick risk is 23.7%. Due Spring/Kirkland mmer 2025. 2024 025 Not available 06/07/2025 12:35:48 MRI, breast, bilateral , w/wo contrast - MyRisk Negative, Lifetime Tyrer Cuzick risk is 23.7%. Due Fall/Pablo er 2024 025 Not available 06/07/2025 12:35:48 MRI, breast, bilateral , w/wo contrast 2024 025 [facility], [address] [address], [place], [address], 12/24/2024 16:01:54 Medication Orders IBU 800 mg tablet 2024 025 [facility] 436, [address] [place] [address], [address], 09/26/2025 09:26:24 hydroxyzi ne HCl 25 mg tablet 2024 025 [facility] 436, [address] [place] [address], [address], 09/25/2025 14:06:19 metronida zole 500 mg tablet 2024 025 [facility] 436, [address] [place] [address], [address], 09/26/2025 09:26:31 oxycodone -acetamin ophen 5 mg-325 mg tablet 2024 025 [facility] 436, [address] [place] [address], [address], 09/25/2025 14:12:36 Slynd 4 mg (28) tablet [address] [facility] 436, [address] [place] [address], [address], 09/25/2025 14:01:30 Patient TargetsNo targets recorded. Patient InstructionsNo instructions recorded. Reason for Referral None Reported. Results Created Date Observation Date Name Description Value Unit Range Abnormal Flag Note LastModifiedBy Organization Detail LastModifiedTime 03/25/2003/26/2025 HPV HIGH RISK HPV high risk Negati [...] l cervi danielle cytol ogy. Not Available [address], [address], 03/26/2025 15:10:14 03/25/2003/29/2025 THINP REP TIS PAP clinical information: normal None given Not Available [facility] [address] [place], [address], 03/29/2025 15:40:53 03/25/20 25 03/29/2025 THINP REP TIS PAP LMP: normal NONE GIVEN Not Available [facility] [address] [place], [address], 03/29/2025 15:40:53 03/25/20 25 03/29/2025 THINP REP TIS PAP prev. Pap: normal NONE GIVEN Not Available [address], [address], 03/29/2025 15:40:53 03/25/20 25 03/29/2025 THINP REP TIS PAP prev. BX: normal NONE GIVEN Not Available [address], [address], 03/29/2025 15:40:53 03/25/20 25 03/29/2025 THINP REP TIS PAP source: normal None given Not Available [address], [address], 03/29/2025 15:40:53 03/25/20 25 03/29/2025 THINP REP TIS PAP statement of adequacy: normal Satis facto ry for evalu ation . Endoc ervic al/tr ansfo rmati on zone compo nent prese nt. Age and/o r menst rual statu s not provi ded Not Available [address], [address], 03/29/2025 15:40:53 03/25/20 25 03/29/2025 THINP REP TIS PAP general categorizati on: abnormal Cytol ogy Resul ts: Epith elial Cell Abnor malit y Not Available [address], [address], 03/29/2025 15:40:53 03/25/20 25 03/29/2025 THINP REP TIS PAP interpretati on/result: abnormal Low Grade Squam ous Intra epith elial Lesio n (LSIL ) Not Available [address], [address], 03/29/2025 15:40:53 03/25/20 25 03/29/2025 THINP REP TIS PAP comment: normal This Pap test has been evalu ated with compu ter darrick pati techn ology . Sugge st clini danielle corre latio n and follo w-up as clini yuki appro priat e Not Available [address] [address] [place], [address], 03/29/2025 15:40:53 03/25/20 25 03/29/2025 THINP REP TIS PAP cytotechnolo gist: normal ABC, CT( CP) CT scree rik locat ion: [address] [address] [place] [address] Not Available [facility] [address] [address] [place], [address], 03/29/2025 15:40:53 03/25/20 25 03/29/2025 THINP REP TIS PAP pathologist: normal Kimberly bautista M.D., Board Certi fied in Anato agnes Patho logy and Cytop athol ogy. Phone : [phone] (elec troni c signa ture) Patho logis t Relea se Date/ Time: 03/29 01:57 PM Not Available [address] [address] [place], [address], 03/29/2025 15:40:53 03/25/20 25 03/29/2025 THINP REP TIS PAP comment EXPLA NATOR Y NOTE: The Pap is a scree rik test for cervi danielle cance r. It is not a diagn ostic test and is subje ct to false negat nhan and false posit nhan resul ts. It is most relia ble when a satis facto ry sampl e, regul yandel obtai jake, is submi tted with relev ant clini danielle findi ngs and histo ry, and when the Pap resul t is evalu ated along with histo remi and curre nt clini danielle infor matio n. Not Available [facility] [address] [address] [place], [address], 03/29/2025 15:40:53 09/13/20 25 09/13/2025 CBC WITH DIFF WBC 5.78 x10'3 /uL 4.5-11 .0 Not Available [facility] (Lab) [place], [address], 09/13/2025 07:42:15 09/13/20 25 09/13/2025 CBC WITH DIFF RBC 4.41 x10'6 /uL 4.20-5 .40 Not Available [facility] (Lab) [address] [facility], [place], [address], 09/13/2025 07:42:15 09/13/2009/13/2025 CBC WITH DIFF hemoglobin 13.7 g/dL 12.0-1 6.0 Not Available [facility] (Lab) [place], [address], 09/13/2025 07:42:15 09/13/20 25 09/13/2025 CBC WITH DIFF hematocrit 41.2 % 38.0-4 8.0 Not Available [facility] (Lab) [place], [address], 09/13/2025 07:42:15 09/13/20 25 09/13/2025 CBC WITH DIFF MCV 93.4 fL 81.0-9 9.0 Not Available [facility] (Lab) [address] [facility], [place], [address], 09/13/2025 07:42:15 09/13/20 25 09/13/2025 CBC WITH DIFF MCH 31.1 pg 27.0-3 1.0 high Not Available [facility] (Lab) [place], [address], 09/13/2025 07:42:15 09/13/20 25 09/13/2025 CBC WITH DIFF MCHC 33.3 g/dL 32.0-3 6.0 Not Available [facility] (Lab) [address] [facility], [place], [address], 09/13/2025 07:42:15 09/13/20 25 09/13/2025 CBC WITH DIFF RDW 11.7 % 11.5-1 4.5 Not Available [facility] (Lab) [address] [facility], [place], [address], 09/13/2025 07:42:15 09/13/2009/13/2025 CBC WITH DIFF platelet count 271 x10'3 /uL 130-40 0 Not Available [facility] (Lab) [address] [facility], [place], [address], 09/13/2025 07:42:15 09/13/20 25 09/13/2025 CBC WITH DIFF MPV 9.7 fL 9.3-12 .2 Not Available [facility] (Lab) [address] [facility], [place], [address], 09/13/2025 07:42:15 09/13/20 25 09/13/2025 CBC WITH DIFF diff type AUTOMA PATI DIFFER ENTIAL Not Available [facility] (Lab) [place], [address], 09/13/2025 07:42:15 09/13/20 25 09/13/2025 CBC WITH DIFF neutrophils 42.8 % Not Available [facility] (Lab) [place], [address], 09/13/2025 07:42:15 09/13/20 25 09/13/2025 CBC WITH DIFF lymphocytes 44.5 % Not Available [facility] (Lab) [place], [address], 09/13/2025 07:42:15 09/13/20 25 09/13/2025 CBC WITH DIFF monocytes 9.0 % Not Available [facility] (Lab) [address], [place], [address], 09/13/2025 07:42:15 09/13/20 25 09/13/2025 CBC WITH DIFF eosinophils 2.8 % Not Available [facility] (Lab) [address], [place], [address], 09/13/2025 07:42:15 09/13/2009/13/2025 CBC WITH DIFF basophils 0.7 % Not Available [facility] (Lab) [address] [facility], [place], [address], 09/13/2025 07:42:15 09/13/2009/13/2025 CBC WITH DIFF immature granulocytes 0.2 % Not Available [facility] (Lab) [address] [facility], [place], [address], 09/13/2025 07:42:15 09/13/20 25 09/13/2025 CBC WITH DIFF abs. neutrophils 2.48 x10'3 /uL 1.80-7 .70 Not Available [facility] (Lab) [address], [place], [address], 09/13/2025 07:42:15 09/13/20 25 09/13/2025 CBC WITH DIFF abs. lymphocytes 2.57 x10'3 /uL 1.00-4 .80 Not Available [facility] (Lab) [address], [place], [address], 09/13/2025 07:42:15 09/13/20 25 09/13/2025 CBC WITH DIFF abs. monocytes 0.52 x10'3 /uL 0.24-0 .86 Not Available [facility] (Lab) [address] [facility] [place], [address], 09/13/2025 07:42:15 09/13/20 25 09/13/2025 CBC WITH DIFF abs. eosinophils 0.16 x10'3 /uL 0.04-0 .36 Not Available [facility] (Lab) [address] [facility], [place], [address], 09/13/2025 07:42:15 09/13/2009/13/2025 CBC WITH DIFF abs. basophils 0.04 x10'3 /uL 0.01-0 .08 Not Available [facility] (Lab) [place], [address], 09/13/2025 07:42:15 09/13/20 25 09/13/2025 CBC WITH DIFF abs. immature grans 0.01 x10'3 /uL 0.00-0 .49 Not Available [facility] (Lab) [address] [facility], [place], [address], 09/13/2025 07:42:15 09/13/20 25 09/13/2025 COMPR EHENS NHAN METAB OLIC PANEL glucose 96 mg/dL 70-99 Not Available [facility] (Lab) [place], [address], 09/13/2025 08:03:13 09/13/2009/13/2025 COMPR EHENS NHAN METAB OLIC PANEL BUN 19 mg/dL 7-18 high Not Available [facility] (Lab) [place], [address], 09/13/2025 08:03:13 09/13/20 25 09/13/2025 COMPR EHENS NHAN METAB OLIC PANEL creatinine 1.20 mg/dL 0.55-1 .02 high Not Available [facility] (Lab) [place], [address], 09/13/2025 08:03:13 09/13/20 25 09/13/2025 COMPR EHENS NHAN METAB OLIC PANEL sodium 140 mmol/ L 136-14 5 Not Available [facility] (Lab) [address] [place], [address], 09/13/2025 08:03:13 09/13/20 25 09/13/2025 COMPR EHENS NHAN METAB OLIC PANEL potassium 4.0 mmol/ L 3.5-5. 1 Not Available [facility] (Lab) [place], [address], 09/13/2025 08:03:13 09/13/20 25 09/13/2025 COMPR EHENS HNAN METAB OLIC PANEL chloride 110 mmol/ L 97-115 Not Available [facility] (Lab[facility] [place], [address], 09/13/2025 08:03:13 09/13/20 25 09/13/2025 COMPR EHENS NHAN METAB OLIC PANEL total CO2 26.4 mmol/ L 21-32 Not Available [facility] (Lab) [place], [address], 09/13/2025 08:03:13 09/13/20 25 09/13/2025 COMPR EHENS NHAN METAB OLIC PANEL calcium 9.0 mg/dL 8.5-10 .1 Not Available [facility] (Lab) [place], [address], 09/13/2025 08:03:13 09/13/20 25 09/13/2025 COMPR EHENS NHAN METAB OLIC PANEL total bilirubin 0.8 mg/dL 0.2-1. 2 THIS ASSAY IS NOT RECOM SCOTT D FOR PATIE NTS UNDER GOING TREAT MENT WITH ELTRO MBOPA G DUE TO THE POTEN TIAL FOR FALSE LY ELEVA PATI RESUL TS. Not Available [facility] (Lab) [place], [address], 09/13/2025 08:03:13 09/13/20 25 09/13/2025 COMPR EHENS NHAN METAB OLIC PANEL total protein 7.2 g/dL 6.4-8. 2 Not Available [facility] (Lab) [place], [address], 09/13/2025 08:03:13 09/13/20 25 09/13/2025 COMPR EHENS NHAN METAB OLIC PANEL albumin 3.7 g/dL 3.4-5. 0 Not Available [facility] (Lab) [place], [address], 09/13/2025 08:03:13 09/13/20 25 09/13/2025 COMPR EHENS NHAN METAB OLIC PANEL AST 14 U/L 15-37 low Not Available [facility] (Lab) [place], [address], 09/13/2025 08:03:13 09/13/20 25 09/13/2025 COMPR EHENS NHAN METAB OLIC PANEL ALT 23 U/L 14-55 Not Available [facility] (Lab) [place], [address], 09/13/2025 08:03:13 09/13/20 25 09/13/2025 COMPR EHENS NHAN METAB OLIC PANEL alk phosphatase 51 U/L 50-136 Not Available [facility] (Lab) [place], [address], 09/13/2025 08:03:13 09/13/20 25 09/13/2025 COMPR EHENS NHAN METAB OLIC PANEL anion gap 3.6 mmol/ L 2-10 Not Available [facility] (Lab) [place], [address], 09/13/2025 08:03:13 09/13/20 25 09/13/2025 COMPR EHENS NHAN METAB OLIC PANEL BUN creatinine ratio 15.8 6-26 Not Available [facility] (Lab) [place], [address], 09/13/2025 08:03:13 09/13/20 25 09/13/2025 COMPR EHENS NHAN METAB OLIC PANEL A:g ratio 1.1 ratio 1.0-2. 0 Not Available [facility] (Lab) [place], [address], 09/13/2025 08:03:13 09/13/20 25 09/13/2025 COMPR EHENS NHAN METAB OLIC PANEL est GFR 56 mL/mi n/1.7 3_M2 >90 low NOTE: eGFR is not calcu lated for patie nts <18 years of age or gende r unkno wn. This is an estim ated GFR calcu latio n using the new CKD EPI creat inine equat ion witho ut race and so does not requi re a corre ction facto r for race. This estim ated GFR shoul d not be used for calcu latin g drug doses . Not Available [facility] (Lab) [place], [address], 09/13/2025 08:03:13 09/13/20 25 09/13/2025 TYPE AND SCREE N ABO/Rh(D) B POSITI VE Not Available [facility] (Lab) [place], [address], 09/18/2025 08:26:14 09/13/20 25 09/13/2025 TYPE AND SCREE N antibody screen NEGATI VE Not Available [facility] (Lab) [address] [facility], [place], [address], 09/18/2025 08:26:14 09/13/20 25 09/18/2025 TYPE AND SCREE N xm expiration 2024,2 359 Not Available [facility] (Lab) [address], [place], [address], 09/18/2025 08:26:14 09/13/20 25 09/18/2025 TYPE AND SCREE N comment NO HISTOR Y OF TRANSF USIONS ,PREGN RISSA OR ANTIBO DIES, NEW SPECIM EN NOT NEEDED Not Available [facility] (Lab) [address] [facility], [place], [address], 09/18/2025 08:26:14 09/18/20 25 09/18/2025 SERUM PREGN RISSA TEST serum test NEGATI VE Not Available [facility] (Lab) [address], [place], [address], 09/18/2025 07:57:05 09/18/20 25 09/22/2025 SJS SURGI DANIELLE PATHO LOGY path report [facility] [address] [facility] [place] [address] Telep jacobo: , exten thea [id number] 07 Patho logy Repor t Surgi danielle Patho logy Repor t Name: KEYSHA REYNOLDS Speci men #: [id number] Age: [birth year] (Age: 50) Locat ion: [facility] S Sex: F Proce dure Date: 09/18 Hospi jose #: [id number] Date Recei sarai: 09/18 Date Repor pati: 09/22 Provi nathan: MARTHA Davis MD [facility] e: Uteru s, cervi x, bilat eral fallo pian tubes , left ovary Clini danielle Histo ry: Ethan rhagi a FINAL DIAGN OSIS: Uteru s, cervi x, bilat eral fallo pian tubes , and left ovary , total lapar oscop ic hyste recto my with bilat eral salpi ngect ida and left oopho recto my: - Cervi x with no diagn ostic abnor malit y. - Weakl y proli ferat nhan endom etriu m. - Myome trium with focal adeno myosi s. - Uteri ne seros a with fibro us adhes ions. - Right fallo pian tube with benig n parat ubal cyst and no fimbr iae ident ified . - Left fallo pian tube with lumin al dilat ation and no fimbr iae ident ified . - Left ovary with cysti c folli aleisha (2 cm). Gross Descr iptio n: Recei sarai in forma wiley, label ed with a patie nt label and as cerv ix, uteru s, bilat eral fallo pian tubes , left ovary is a speci men consi sting of a uteru s with attac hed cervi x and attac hed left ovary and fallo pian tube and a detac hed fallo pian tube, clini yuki ident ified as right . The uteru s with cervi x is 72 g. It is 8 cm in lengt h, 3.5 cm from cornu to cornu , and 3 cm from anter ior to poste rior. The uteri ne seros a is eryth emato us, and a few adhes ions are ident ified on the poste rior surfa ce. The 3.7 x 3.5 cm ectoc ervix is cover ed with nestor h, pink- white mucos a. No discr ete lesio ns are noted gross ly. The speci men is opene d to revea l that the endoc ervic al canal has a diame ter of 1 cm. The endom etria l cavit y is 4 x 1.8 cm. It conta ins blood y mater ial and is lined by a nestor h, pink- rausch endom etriu m. The endom etriu m has an avera ge thick ness of 0.1 cm. It overl ies a 1 cm thick myome trium . No discr ete endom etria l or myome trial lesio ns are ident ified . The right fallo pian tube is 3.8 cm in lengt h with a diame ter of 0.5 cm. 1 end is round ed and nestor h, and fimbr iae are not ident ified . Secti ons revea l that the lumen of the tube conta ins a blood y fluid . No discr ete lesio ns are noted on secti oning . The left ovary is 5 g and 2.8 x 2.0 x 1.6 cm. The surfa ce is nestor h and yello w-rausch . Secti ons revea l a 2 cm cyst conta ining clear color less fluid . No excre scenc es or mass lesio ns are ident ified . The left fallo pian tube is 6.5 cm in lengt h with a diame ter of 0.3-0 .6 cm. 1 end is round ed, and fimbr iae are not gross ly ident ified . Secti ons revea l that the dilat ed tube conta ins blood y fluid . No discr ete lesio ns are noted on secti oning . Repre senta tive tissu e is submi tted as follo ws: 1 poste rior uteri ne seros a 2 cervi x 3 and 4 anter ior endom etriu m atriu m 5 and 6 poste rior endom yomet rium 7 right fallo pian tube 8 and 9 left ovary and fallo pian tube. Gross exami natio n (when appli cable ), inter preta tion, and sign out were perfo [facility] at [facility], [address] [facility], [place] [address] . Elvi magdyon raghavll y Ene d Out CARRI GARCIA MD Not Available [facility] (Lab) [address], [place], [address], 09/22/2025 16:41:38 04/30/20 25 MRI, breas t, bilat eral, w/wo contr ast No observ ation record ed. [email or web address] Not Available 2024 09:30:37 Result Notes None recorded. Problems Name Problem SNOMED Code Status Onset Date Resolution Date Notes Provider Name and Address Organization Details Recorded Time Uses contrace ption 20646707 Completed 201611/26/2017 Contrace ption advice, other method; Location : None Severity : Moderate Progress : Stable Added By: Allison Lemus Add to Current Problems : NO ProblemS tatus: Resolve Not Available [facility] 1 01:27:04 Contrace ptive sheath status [id number] Completed 201611/26/2017 Contrace ption advice, other method; Location : None Progress : Stable Added By: Allison Lemus Add to Current Problems : NO ProblemS tatus: Resolve Encounte r for initial prescrip tion of other contrace ptives; Progress : Stable Added By: Allison Lemus Add to Current Problems : NO ProblemS tatus: Resolve Not Available [facility] 2 20:48:06 Mammogra phy abnormal [id number] Completed 201703/24/2020 Abnormal mammogra m, unspecif ied; Location : None Progress : Stable Added By: Bill Archer Add to Current Problems : YES ProblemS tatus: Current Abnormal mammogra m, unspecif ied; Progress : Stable Added By: Bill Archer Add to Current Problems : NO ProblemS tatus: Resolve Not Available [facility] 2 20:48:06 Insertio n of intraute rine contrace ptive device done [id number] Completed 201703/24/2020 Encounte r for insertio [...] : NO ProblemS tatus: Resolve Not Available [facility] 19:39:44 Problem Notes None recorded. Procedures Surgical History Date Name Laterality Status Provider Name and Address Organization Details Recorded Time 09/18/20 25 robot assisted laparoscopic total hysterectomy completed Adeel Pozo MD [address] [place] [address], [id number], [facility] [employer] [facility] 09/25/2025 14:31:17 08/10/20 25 Most Recent Mammogram completed Joanne Hargrove [facility] [employer] [facility] 09/25/2025 14:02:35 03/25/20 25 Date of Last Pap Smear completed Stephanie Lemus [facility] [facility] [employer] 05/06/2025 09:55:10 04/19/20 24 Colposcopy - Cervix completed Belen Martini MD [address] [place] [address], [phone], [facility] IV 04/19/2024 20:12:47 04/19/20 24 IUD Removal completed Belen Martini MD [address] [place] [address], [phone], [facility] IV 04/19/2024 20:12:56 02/08/20 23 Date of Last Colonoscopy completed Regina Gomez [facility] [employer] IV 03/25/2025 15:43:55 03/24/20 22 Colposcopy - Cervix completed Nicci Okeefe ANÍBAL [address] [place] [address], [phone], [facility] IV 03/28/2022 19:01:31 C Section completed BANDAR Gill [address] [place] [address], [phone], [facility] IV 02/27/2023 10:46:23 extraction of wisdom tooth completed Stephanie Lemus [facility] 05/06/2025 09:57:17 colposcopy completed Stepah[facility] 05/06/2025 09:57:38 Imaging Results None recorded. Procedure Notes None recorded. Medical Equipment None Reported. Allergies Allergen ID Allergen Name Allergen Category Reaction Reaction Severity Criticality Documentation Date Start Date Code Code System Note Provider Name and Address Organization Details Recorded Time 422337 house dust allergeni c extract environme nt,medica tion Not available Not available Not available 05/06/2025 77083 9 [facility]Norm [facility] 09:51:46 638218 cat dander environme nt Not available Not available Not available 05/06/2025 [facility] 5 09:51:46 765348 mold extract environme nt Not available Not available Not available 05/06/2025 41737 8 RxNorm [facility] 5 09:51:46 363206 coconut allergeni c extract food,medi cation Not available Not available Not available 08/12/20252021 75434 1 RxNorm Not Available arrington - External Data Service - prod 5 10:13:27 Medications Name Sig Start Date Stop Date Status Note LastModified by Organization Details LastModified Time trazodone 50 mg tablet 02/17 completed Not Available Not Available Not Available ibuprofen 800 mg tablet TAKE 1 TABLET BY MOUTH 4 TIMES DAILY DIRECTED 09/25 completed Not Available Not Available Not Available fluconazo le 150 mg tablet take 1 tablet by mouth now and repeat in 3 days 02/26 completed Not Available Not Available Not Available famotidin e 40 mg tablet 01/26 completed Not Available Not Available Not Available metronida zole 500 mg tablet TAKE 1 TABLET BY MOUTH EVERY 12 HOURS DIRECTED 09/25 completed Not Available Not Available Not Available valacyclo vir 500 mg tablet active Not Available Not Available No t Available oxycodone -acetamin ophen 5 mg-325 mg tablet TAKE 1 TABLET BY MOUTH EVERY 6 HOURS NEEDED 09/25 completed Not Available Not Available Not Available pantopraz ole 40 mg tablet,de layed release 01/26 completed Not Available Not Available Not Available hydroxyzi ne HCl 25 mg tablet TAKE 1 TO 2 TABLETS BY MOUTH EVERY 6 HOURS NEEDED 09/25 completed Not Available Not Available Not Available [...] Ortho Cyclen 28 35mcg/0. 25mg Tablet RxNorm: 127390 Allow Substitu tion: True Refill Denied: No Not Available Not Available Not Available Zoloft 03/24 completed Zoloft RxNorm: 39741 Allow Substitu tion: True Refill Denied: No Refill DateOccu rred: 11/28/19 Edited by: Mariana Spivey ) on 03/24/20 Stopped by: Mariana Spivey ) on 03/24/20 Not Available Not Available Not Available acyclovir 03/24 completed Acyclovi r RxNorm: 760232 Allow Substitu tion: True Refill Denied: No Refill DateOccu rred: 11/28/19 Edited by: Mariana Spivey ) on 03/24/20 Stopped by: Mariana Spivey ) on 03/24/20 Not Available Not Available Not Available aspirin active Not Available Not Avail able Not Available Zyrtec active Not Available Not Availa ble Not Available Valtrex 02/17 completed Valtrex RxNorm: 644199 Refill Denied: No Refill DateOccu rred: 03/24/20 Edited by: Mariana Spivey ) on 03/24/20 20 Stopped by: Mariana Spivey ) on Not Available Not Available Not Available Wellbutri n SR 03/242 completed Wellbutr in SR RxNorm: 962044 Allow Substitu tion: True Refill Denied: No [...] completed Dasetta 1/35 35mcg/1m g Tablet RxNorm: 8202441 Allow Substitu tion: True Refill Denied: No [...] 1 tablet every day by oral route. 05/06 completed Not Available Not Available Not Available Slynd 4 mg (28) tablet TAKE 1 TABLET BY MOUTH ONCE DAILY 09/25 completed Not Available Not Available Not Available Vitals Date Recorded Body height Body mass index (BMI) Body weight Systolic And Diastolic Provider Name and Address Organization Details Last Updated DateTime 11/05/2024 162.56 cm 27.5 kg/m2 35515.78 g 118/80 mm[Hg] Ita Thorne [facility] 11/05/2024 10:47:33 Date Recorded Body height Body mass index (BMI) Body weight Systolic And Diastolic Provider Name and Address Organization Details Last Updated DateTime 03/25/2025 162.56 cm 30 kg/m2 81966.95 g 120/72 mm[Hg] Regina Gomez [facility] 03/25/2025 15:42:27 Date Recorded Body height Body mass index (BMI) Body weight Systolic And Diastolic Provider Name and Address Organization Details Last Updated DateTime 05/06/2025 162.56 cm 30.5 kg/m2 87515.72 g 116/70 mm[Hg] Stephanie Rojoa [facility] IV 05/06/2025 09:59:58 Date Recorded Body height Body mass index (BMI) Body weight Systolic And Diastolic Provider Name and Address Organization Details Last Updated DateTime 08/26/2025 162.56 cm 31 kg/m2 05764.06 g 126/76 mm[Hg] Sandra Thorne [facility] IV 08/26/2025 10:35:25 Date Recorded Body height Body mass index (BMI) Body weight Systolic And Diastolic Provider Name and Address Organization Details Last Updated DateTime 09/25/2025 162.56 cm 31.3 kg/m2 26853.53 g 120/70 mm[Hg] Joanne Hargrove [facility] IV 09/25/2025 14:05:56 Social History Question Answer Notes LastModified by Organizat ion Details LastModified Time Tobacco Smoking Status Never Smoker Mariana oliveira, [facility] IV 02/17/2022 09:51:17 If You Are , What Was Your Level Of Alcohol Consumption Prior To ? Occasional [email or web address] Information not available 03/24/2022 Are You Blind Or Do You Have Difficulty Seeing? No Information not available 02/17/2022 Are You Deaf Or Do You Have Serious Difficulty Hearing? No Information not available 02/17/2022 What Type Of Diet Are You Following? REGULAR Information not available 02/17/2022 What Is The Highest Grade Or Level Of School You Have Completed Or The Highest Degree You Have Received? [id number] Information not available 02/23/2023 How Many Children Do You Have? 3 Information not available 02/17/2022 Are There Any Occupational Health Risks Where You Work? [employer]en muriel Information not available 05/06/2025 What Is Your Relationship Status? [email or web address] Information not available 01/27/2024 Are You Sexually Active? Yes Information not available 02/17/2022 Sex: Female Functional Status Question Answer Note LastModified by Organizat ion Details LastModified Time Do you use any illicit or recreational drugs? No Information not available 02/17/2022 Do you or have you ever used any other forms of tobacco or nicotine? No Information not available 02/17/2022 What is your level of alcohol consumption? Occasional Information not available 02/17/2022 Are you currently employed? Yes [email or web address] Information not available 02/23/2023 What is your exercise level? Occasional Information not available 02/17/2022 Mental Status None recorded. Family History Relationship Description Onset Age of this Age Resolved Age Notes LastModified by Organization Details LastModified Time Maternal Aunt Malignant neoplasm of breast 65 [email or web address] Not available 2024 15:13:39 Unspecified Relation Malignant neoplasm of breast Matern al Great Aunt awittler [...] Response Flow Moderate Date of last HPV 03/25/2025 Date of LMP 03/27/2024 HPV Vaccine N Duration of Flow (days) 5 Most Recent Mammogram 08/10/2025 Current Control Method Hysterectom y Age at Menarche 13 Date of Last Colonoscopy 02/07/2023 Most Recent Bone Density Frequency of Cycle (Q days) 25 Date of Last Pap Smear 03/25/2025 Obstetrics History GPAL:G 4 P 3 0 1 3 Type Value Full Term 3 Spontaneous 1 Premature 0 Living 3 Total 4 Past Encounters Encounter ID Performer Location Encounter Start Date Encounter Closed Date Diagnosis/Indication Diagnosis SNOMED-CT Code Diagnosis ICD10 Code Diagnosis IMO Codes Diagnosis Note [id number] BANDAR Chase [facility] [address] [place] [address] 02/17/2022 09:41:08 02/17/2022 13:46:45 Gynecologic examination 12625225 Z01.419 Pt educated on recommenda tion for annual WWE over 21 y/o for breast and ovarian cancer screenings . Exam WNL. Plan for F/U PRN or for next WWE. Screening for malignant neoplasm of cervix 162230010 Z12.4 ASCCP guidelines reviewed with pt. Pap collected and sent. Further POC pending lab result review. Pt states understand ing of POC. Screening for malignant neoplastic disease 58677768 Z19.1 Plan to discuss GI referral at pt turns 47 y/o in 02/2022. Screening for malignant neoplasm of breast 595063952 Z12.39 Pt educated on breast cancer screening guidelines , and discussed recommenda tion for scheduling imaging at hospital of her choice. Reviewed recommenda tion to have imaging done at same facility if possible as previous screenings . Pt states understand ing of POC. IUD check 852290327 Z30. 431 Pt educated on risks Vs benefits of use, reviewed ACHES symptoms. Dosing schedule reviewed. Pt educated on bleeding profile of device, expulsion sx, and when to notify HCP/go to ER. Plan to F/U PRN or at next WWE. Venereal d isease screening 953310846 Z11.3 Pt educated on importance of continuing to use condoms to avoid re-infecti on and prevent further STI exposure. Culture collected and sent. Further POC pending lab result review. Pt states understand ing of POC. [id number] Pauline Mullen ANÍBAL [facility] [address] [place] [address] 03/09/2022 15:31:11 03/09/2022 17:11:54 Low grade squamous intraepithelial lesion on cervical Papanicolaou smear 1093169279 9105 R87.612 UPT in office is negative. [...] reschedule d procedure to after her vacation. [id number] Nicci Okeefe ANÍBAL [address] [address] 03/24/2022 15:49:38 03/24/2022 16:53:18 Abnormal cervical Papanicolaou smear 777388917 R87.619 *Discussed colposcopy technique and procedure, aware [...] squamous intraepithelial lesion on cervical Papanicolaou smear 4863027651 9105 R87.612 Human jose maria llomavirus deoxyribonucleic acid detected, high risk on cervical specimen 550592590 R87.756 [id number] BANDAR Gill [address] [address] 02/23/2023 15:38:00 02/28/2023 09:55:03 Gynecologic examination 74692482 Z01.419 WWE completedP ap obtainedCB E nml; discussed breast self-aware ness.Cardi ovascular health: discussed healthy diet and regular exercise. Lipid and diabetes screening by PCPContrac eption - IUDcolon cancer screening- cologuard [facility] e health- recommend daily Ca++ with Vitamin D. Weight-ej ring exercises. Screening for malignant neoplasm of cervix 175105611 Z12.4 Cervical cancer screening is used to find abnormal changes in the cells of the cervix that could lead to cancer. Screening includes the Pap test and, for some women, testing for a virus called human papillomav irus (HPV). The main cause of cervical cancer is infection with HPV. Screening for malignant neoplasm of breast 619571474 Z12.31 Depression screening 171 033897 Z13.31 screen negative Screening for malignant neoplasm of colon 077905671 Z12.11 [id number] BANDAR Gill [address] [address] 01/27/2024 16:26:37 01/27/2024 17:15:02 Vaginal discharge 609291217 N89.8 N76.0 Vaginal cx obtained.F ollow up pending cx results [id number] Pauline MullenBANDAR [address] [address] 02/27/2024 15:08:18 02/28/2024 15:05:36 Gynecologic examination 96406038 Z01.411 Pt educated on ACOG and ASCCP guidelines for breast, ovarian, and cervical cancer screenings . Exam WNL. Plan for F/U PRN or for next WWE. Additional diagnosis detail: Abnormal gynecologi danielle examinatio n Screening for malignant neoplasm of cervix 721783709 Z12.4 ASCCP guidelines reviewed with pt. Pap collected and sent. Further POC pending lab result review. Pt states understand ing of POC. Screening for malignant neoplasm of breast 109198092 Z12.31 Pt educated on breast cancer screening guidelines , and discussed recommenda tion for scheduling imaging in 08/2024. Pt states she already has scheduled. Reviewed recommenda tion to have imaging done at same facility if possible as previous screenings . Pt states understand ing of POC. Depression screening 171 139831 Z13.31 PHQ9: 2. Pt educated on normal scoring, and discussed depression precaution s and when to notify HCP/go to ER. Intrauteri ne contraceptive device in situ 344783740 Z30.431 Pt educated on risks Vs benefits [...] for routine checking of intrauteri ne contracept nhan device (IUD) Abnormal u terine bleeding 2225772679 9100 N93.9 Pt educated on bleeding precaution [...] face counseling . Female gen mary finding 558048174 R87.89 Pt educated on bimanual exam findings, [...] findings in specimens from female genital organs [id number] Belen Martini MD [address] [address] 03/09/2024 15:01:10 03/09/2024 16:26:04 Abnormal uterine bleeding 2081326226 9100 N93.9 Heavy and prolonged bleeding with [...] of undetermined significance on cervical Papanicolaou smear 547875712 R87.610 Abnormal Pap smears: The patient has [...] of cervix with negative high risk HPV [id number] Belen Martini MD [address] [address] 04/19/2024 13:47:20 04/19/2024 15:22:54 Atypical squamous cells of undetermined significance on cervical Papanicolaou smear 740387660 R87.610 Removal of intrauterine contraceptive device 7002595885 Z30.373 [id number] BANDAR Chase [facility] [address] [place] [address] 11/05/2024 10:31:33 11/05/2024 16:29:35 Family history of breast cancer 145225368 Z80.3 [id number] Pt educated on optional MyRisk testing. Pt states understand ing of POC and will consider. Pt to notify HCP if would like to proceed with imaging or hereditary testing. Extremely dense breast composition 732563742 R92.343 [id number] Last mamm showed Birads 3, Density Category [...] offer additional imaging with a Breast MRI. Tyrer Cuzick done in office: 23.7%. Pt offered MyRisk testing. Pt prefers to consider and will F/U with provider if chooses to have testing. Pt prefer to have additional screening imaging. PA sent. Orders sent to facility pt prefers. Further POC pending imaging results. Over 30 minutes spent in patient care and at least 50% of that time was in face to face counseling . [id number] BANDAR Chase [facility] [place] [address] [place] [address] 03/25/2025 15:12:43 03/26/2025 12:45:21 Gynecologic examination 30552043 Z01.419 Pt educated on ACOG and ASCCP guidelines for breast, ovarian, and cervical cancer screenings . Exam WNL. Plan for F/U PRN or for next WWE. Screening for malignant neoplasm of cervix 153252838 Z12.4 ASCCP guidelines reviewed with pt. Pap collected and sent. Further POC pending lab result review. Pt states understand ing of POC. Screening for malignant neoplasm of breast 223919597 Z12.31 Pt educated on high risk screening recommenda tions of CBE Q 6 months, screening mammogram annually, and breast MRI annually. Pt's lifetime Tyrer Mickeyzick risk is 23.7%. Pt amenable. Pt given printed orders and will schedule at her convenienc e. Pt states understand ing of POC. Depression screening 171 149716 Z13.31 PHQ9: 2. Pt educated on normal scoring, and discussed depression precaution s and when to notify HCP/go to ER. Extremely dense breast composition 280714028 R92.343 [id number] Reviewed Mammogram Quality Standards Act (MQSA) guidance again with pt as well as high risk MyRisk negative status. Pt plans to continue with twice per year screening of alternatin g mammogram and breast MRI every 6 months. See above POC/orders . Family his tory of breast cancer 875753054 Z80.3 998683 See Above POC. Abnormal u terine bleeding 1207092403 9100 N93.9 AUB now well managed with Slynd use. Plan to continue at this time. Pt educated on risks Vs benefits of use, and reviewed ACHES symptoms. Importance of daily administra tion within the same 30 minute time frame reinforced to pt, and on use of condoms or abstinence if dosing schedule is interrupte d. Refills sent. Plan to F/U PRN or at next WWE. [id number] Adeel Pozo MD [facility] [address] [place] [address] 05/06/2025 09:46:42 05/27/2025 13:33:35 Low grade squamous intraepithelial lesion on cervical Papanicolaou smear 5984438374 9105 R87.612 discussed colpo and will forgo [facility] History of deep vein thrombosis 358506313 Z86.001 [id number] Menometrorrhagia 9458834 08 N92.1 [id number] On IUD and Slynd, did not have a cycle.COUN SELING was provided today regarding the following topics: . The surgical procedure for Da Valeria total Laparoscop ic Hyst and bilateral salpingect ida, the alternativ es and risks including but not limited to anethesia, bleeding, infection, injury to surroundin g organs, improper wound healing, DVT, VTE, PE, pneumonia, possible need for laparotomy , ureteral or bladder injury, , or possible need for more surgery at a later date were all discussed and explained. The procedure was explained with the aid of an anatomical model and pamphlet. The patient wants to keep her ovaries unless they look abnormal or we discussed removing them and ramificati ons of surgical menopause as well as recommend to do HRT in some regard . She understand s that her uterus is being removed and she then will not be able to carry a for herself or anyone else. The expected recovery was discussed. The patient was able to tell me back a good understand ing of the procedure, it's indication , the risks and recovery. She has no questions and wants to proceed as scheduled At [facility] for malignant neoplasm of breast 9839697297 72690 Z91.89 [id number] Family his tory of malignant neoplasm 538611340 Z80.9 360562 High risk human papillomavirus detected 0713458795 6106 R87.810 [id number] Adeel Pozo MD [facility] [address] [place] [address] 08/26/2025 10:28:53 09/16/2025 09:05:55 Menometrorrhagia 514098972 N92.1 [id number] On IUD and Slynd, did not have a cycle.love nox atfter sx and 81mg asa daily alwaysCOUN SELING was provided today regarding the following topics: . The surgical procedure for Da Valeria total Laparoscop ic Hyst and bilateral salpingect ida, the alternativ es and risks including but not limited to anethesia, bleeding, infection, injury to surroundin g organs, improper wound healing, DVT, VTE, PE, pneumonia, possible need for laparotomy , ureteral or bladder injury, , or possible need for more surgery at a later date were all discussed and explained. The procedure was explained with the aid of an anatomical model and pamphlet. The patient wants to keep her ovaries unless they look abnormal or we discussed removing them and ramificati ons of surgical menopause as well as recommend to do HRT in some regard . She understand s that her uterus is being removed and she then will not be able to carry a for herself or anyone else. The expected recovery was discussed. The patient was able to tell me back a good understand ing of the procedure, it's indication , the risks and recovery. She has no questions and wants to proceed as scheduled Low grade squamous intraepithelial lesion on cervical Papanicolaou smear 9893974796 9105 R87.612 [id number] Discussed colpo and will forgo and proceed with the surgery as scheduled. Health Concerns Section Related Observation LastModified by Organization Detai ls LastModified Time None Recorded Concern Status LastModified by Organization Details LastModified Time None Recorded Advance Directives Directive None Recorded Payers Insurance Date Sequence Insurance Name Policy Number Policy Eagle Covered Member ID Eagle Member ID Guarantor Name 04/16/2024 PAYMENT PLAN Keysha Saenz 09/22/2025 1 [place] [id number] Keysha Saenz [id number] Keysha Saenz 01/27/2024 1 [place] [id number] Charles Saenz [id number] Keysha Saenz Notes Date Note Type Note Provider Name and Address Organization Details Recorded Time 11/05/2024 text/html ROS as noted in the HPI Pt sent an appt request on 10/18/24: I would like to schedule a follow up visit after receiving my mammogram/Breast US report. There are two m asses that are concerning for me. I have talked to my PCP and we agree that a follow up with my Unix Manager for a physical breast exam to see if masses are palpable and discussion would be good to determine next steps. I understand radiologist recommends 6 month follow up but I would like more discussion regarding this. I tried multiple times to attach the report and this picture is not super clear. I had it done at [facility] or I can email the report if [...] has no other concerns at this time. Pauline Mullen, BANDAR [address] [facility] [facility] [address], [place], [address], [facility] 11/05/2024 13:14:57 03/25/2025 text/html ROS as noted in the HPI Pt presents for annual well woman exam today. Pt states she is doing well. Pt reports having not having bleeding with Slynd POP use. LMP: 03/27/2024. Pt is currently sexually active. Pt does not desire within the next year. Last Pap: ASCUS, HPV neg. H/O persistently abnormal pap. Colpo: 04/2024 SUSAN 1. Pt is UTD on mammogram, last done 09/2024, Birads 3, Density Category D. Pt counseled in 10/2024. PA approved 11/12/24. Concepción Pradhan Lifetime Risk without MyRisk Testin.7%. Pt states she did have breast MRI; no records on file to review. Pt is UTD on colon cancer screening; Cologard WNL in 2022. Pt has no personal history of cancer, but does have a family h/o breast cancer. Pt declines STD screening via culture and serum testing. Pt does have PCP who she sees routinely for health promotion and screenings. Pt has no other concerns. BANDAR Chase [address] [facility] [facility] [address], [place], [address], [employer] [facility] 03/26/2025 08:28:43 05/06/2025 text/html ROS as noted in the HPI The patient verbally consented to documentation via virtual scribe for this encounter. Lidia is a 50yr old here today for a colposcopic examination. UPT is neg. Consent for has been signed. Pt has no questions for today. 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 Her biggest child was 9 lb and 12 oz. She was 27 during her first and breast fed. Since she had her IUD was removed last year in 2023 and was started on Slynd, she states she has not had period. Prior to her IUD insertion, she states her menses were heavy and was on BCPs. She has a history of DVT that was caused by an injury. She denies undergoing any testing for her DVT. She was on Eliquis in the past. She is sexually active and denies any pain or discomfort with intercourse. 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 Adeel Pozo MD [address], [place], [address], [employer] [facility] 05/25/2025 16:36:29 08/26/2025 text/html Pre-Op OBGYN HPIReported by PatientHPIFor risk factors, patient reportsno cognitive impairment,no functional impairment,no malnutrition,no frailty,able to climb a flight of stairs (exercise capacity>4 mets),no obstructive sleep apnea,non-smoker,no alcohol misuse,no illicit drug use,no chronic cardiopulmonary condition, andnot obese. For anesthesia hx, patient reportsno hx of anesthesia complications,no allergy to anesthetic agents, andno family history of anesthesia complications. For past surgical issues, patient reportsno previous surgical complications. For surgery to be performed, (rthl/bso). For diagnosis, (menorrhagia with irregular cycles / pap lgsil). For location, ([facility] [place] on 09/18/2025).ROS as noted in the HPI The patient verbally consented to documentation via virtual scribe for this encounter. Keysha 50 y/o here for pre-op visit. She is scheduled to undergo RTHL/BSO on 09/18/25 at [place] secondary to menorrhagia with irregular cycles/LGSIL. She has a history of chronic DVT and states she is currently not on medication. She sees her automotive glass mechanic and states she was previously taking Eliquis. Adeel Pozo MD [address] [place] [address], [id number], [facility] 09/15/2025 17:44:44 09/25/2025 text/html Post-OpReported by PatientHPIFor onset/timing, patient reportsdate of surgery:(09/18/2025) . For quality, patient reportsprocedure:(to jose laparoscopic hysterectomy with bilateralsalpingecto my).ROS as noted in the HPI The patient verbally consented to documentation via virtual scribe for this encounter. Lidia is a 50yr old here today for an post op visit. Pt has questions on taking antibiotics . States she metronidazole made her feel uncomfortable. Pt would like to know her next expectations after surgery. Not Available Not Available Not Available OBGyn Episode Ob Episode Information Episode Created Date Number of Fetuses Patient Bloodtype Patient rh Status Prepregnancy Weight lbs Domestic Partner Domestic Partner Phone Father Name Boom Conveyor Operator Status 01/27/20 24 1 CLOSED Fetus Data [...] Domestic Partner Domestic Partner Phone Father Name Boom Conveyor Operator Status 01/27/20 24 1 CLOSED Fetus Data [...] Domestic Partner Domestic Partner Phone Father Name Boom Conveyor Operator Status 01/27/20 24 1 CLOSED Fetus Data [...]
--- OUTSIDE RECORDS SUMMARY | 2025-09-26 11:38 | XMS_ITS | Encounter Summary ---
Author Organization [facility] Address [address] [place] [address] Care Team Providers Care Fur Coat Sewer Name Role Phone Not Found, Stl Primary Care Provider Unavailabl e Encounter Details Date Type Department Care Team (Late st Contact Info) Description 08/16/2007 Outpatient Historical [facility] Maternal and Ground Floor [facility] [address] [place] [address] Francisco Walton MD [address] [place] [id number] Social History Tobacco Use Types Packs/Day Years Used Date Smoking Tobacco: Never Assessed Comments Unknown Sex and Gender Information Value Date Recorded Sex Assigned at Not on file Legal Sex Female 5:28 AM JOB BOSS Gender Identity Not on file Sexual Orientation Not on file documented as of this encounter Plan of Treatment Not on file documented as of this encounter Visit Diagnoses Not on filedocumented in this encounter Care Teams Fur Coat Sewer Relationship Specialty Start Date End Date Not Found, Stl NO ADDRESS ON FILE PCP - General 09/12/12 documented as of this encounter
--- OUTSIDE RECORDS SUMMARY | 2025-09-26 11:38 | XMS_ITS | Encounter Summary ---
Author Organization [facility] Address 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
--- OUTSIDE RECORDS SUMMARY | 2025-09-26 11:38 | XMS_ITS | Encounter Summary ---
Author Organization [facility] Address [address] [place] [address] Care Team Providers Care Biopharmaceutical Rep Name Role Phone Not Found, Stl Primary Care Provider Unavailabl e Encounter Details Date Type Department Care Team (Late st Contact Info) Description 12/04/2007 Outpatient Historical [facility] Maternal and Ground Floor [address] [place] [address] [place] [phone] Amadeo Maxwell MD NO ADDRESS ON FILE Social History Tobacco Use Types Packs/Day Years Used Date Smoking Tobacco: Never Assessed Comments Unknown Sex and Gender Information Value Date Recorded Sex Assigned at Not on file 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
--- OUTSIDE RECORDS SUMMARY | 2025-09-26 11:38 | XMS_ITS | Encounter Summary ---
Author Organization [email or web address] Address 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
--- OUTSIDE RECORDS SUMMARY | 2025-09-26 11:38 | XMS_ITS | Clinical Summary ---
Author Organization [facility] Address [address] [place] [address] Phone Care Team Providers Care Position Classification Manager Name Role Phone Lay Bauer MD Primary [...] on file Legal Sex Female 2:57 AM LEAVE MANAGER Gender Identity Not on file Sexual [...] 10:25 AM CDT Height 165.1 cm (5' 5) 01/02/2018 10:06 AM CDT Body Mass Index 29.49 01/02/2018 10:06 AM CDT Plan of Treatment Health Maintenance Due Date Last Done Comments Hepatitis C Virus (HCV) Screening 1975 TdaP Immunization 1975 Hepatitis B Immunization (1 of 3 - 19+ 3-dose series) 1996 HPV/Cotest 2007 Cervical Cancer Screening (CCS) 02/09/2010 Pap Smear 02/09/2010 02/09/2007 Cologuard 2022 Colonoscopy 2022 Colorectal Cancer Screening 2022 Immunochemical Fecal Occult Blood 2022 Influenza Immunization (#1) 2025 SARS-COV-2 Immunization () 06/10/2025 08/19/2021, 12/16/2020, 11/13/2020 Respiratory Syncytial Virus (RSV) Immunization (Adult) (1 - 1-dose 75+ series) 2052 Human Papillomavirus (HPV) Immunization (No Doses Required) Completed Meningococcal Immunization (ACWY) Aged Out No longer eligible b ased on patient's age to complete this topic Pneumococcal Immunization Combined Aged Out No longer eligible b ased on patient's age to complete this topic Rotavirus Immunization Aged Out No lo nger eligible based on patient's age to complete this topic Procedures Procedure Name Priority Date/Time Associated Diagnosis Comments PATHOLOGY CYTOLOGY PIGS FEET FINISHER Routine 02/09/2007 from Last 3 Months or Most Recently Relevant to Health Maintenance Results * PATHOLOGY CYTOLOGY PIGS FEET FINISHER (02/09/2007) Specimen of unknown material (specimen) Danielle Miller MD PATHOLOGY/CYTOLOGY ORDERABLES Final Result from Last 3 Months or Most Recently Relevant to Health Maintenance Insurance [facility] Care Teams Position Classification Manager Relationship Specialty Start Date End Date Lay Bauer MD [address] [place] [address] PCP - General Family Medicine 12/29/17
--- OUTSIDE RECORDS SUMMARY | 2025-09-26 11:38 | XMS_ITS | Encounter Summary ---
Author Organization [facility] Address [address] [place] [address] Care Team Providers Care Buffer Chrome Name Role Phone Not Found, Stl Primary Care Provider Unavailabl e Encounter Details Date Type Department Care Team (Late st Contact Info) Description 01/13/2008 Inpatient Historical [facility] Marisol Boyd MD [address] [place] [address] Yariel Restrepo MD [address] [facility] [address] [place] [address] Normal Delivery Social History Tobacco Use Types Packs/Day Years Used Date Smoking Tobacco: Never Assessed Comments Unknown Sex and Gender Information Value Date Recorded Sex Assigned at Not on file 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 Gender Identity Not on file Sexual Orientation Not on file documented as of this encounter Plan of Treatment Not on file documented as of this encounter Procedures Procedure Name Priority Date/Time Associated Diagnosis Comments PATHOLOGY Routine 01/13/2008 5:00 PM CDT CBC WITH DIFFERENTIAL Stat 01/13/2008 8:11 AM CDT documented in this encounter Results * PATHOLOGY (01/13/2008 5:00 PM CDT) [place]AL [place] [facility] [address] [place], [place] [address] Patient: KEYSHA AREVALO : 1975 Procedure Date: 01/13/2008 Accession Date: 01/15/2008 Case No: [id number] Ordering Dr: MARISOL BOYD Case types AW, BW, FW, NW and SH are performed by [facility] [place] [place], [place] SURGICAL PATHOLOGY & NON-GYNECOLOGIC CYTOPATHOLOGY REPORT [...] occupy less than 1% of the parenchyma. Spectral Scientist sections are submitted as follows: A1-umbilical cord and membranes; A2-peripheral area of induration; A3-central area of induration; A4 and A5-central placental parenchyma. [facility] 01.16.2008 10:29 am Microscopic: The slides are labeled Keysha Dany [id number]. The weight of this placenta falls near [...] pm INTERFACE SYSTEM 01/13/2008 5:00 PM CDT us Marisol Boyd MD PATHOLOGY/CYTOLOGY ORDERAB LES Final [...] LAB NEUTROPHILS 72(H) 45 - 70 % [facility] NEUTROPHIL ABSOLUTE 7.24(H) 1.90 - 7.00 K/uL [facility] EOSINOPHILS 1 0 - 7 % [facility] MONOCYTE ABSOLUTE 0.72 0.10 - 1.30 K/uL [facility] EOSINOPHIL ABSOLUTE 0.10 0.00 - 0.70 K/uL [facility] LYMPHOCYTES 20 16 - 45 % [facility] LYMPHOCYTE ABSOLUTE 2.02 0.70 - 4.50 K/uL [facility] BASOPHILS 0 0 - 2 % [facility] Blood specimen (specimen) 01/13/2008 8:11 AM CDT 01/13/2008 8:22 AM CDT us Marisol Boyd MD HEMATOLOGY ORDERABLES Edit ed INTERFACE SYSTEM Refer to clinic/hospital department [facility] [address] [place] [address] documented in this encounter Visit Diagnoses Diagnosis Normal delivery documented in this encounter Care Teams Buffer Chrome Relationship Specialty Start Date End Date Not Found, Stl NO ADDRESS ON FILE PCP - General 09/12/12 documented as of this encounter
--- OUTSIDE RECORDS SUMMARY | 2025-09-26 11:38 | XMS_ITS | Encounter Summary ---
Author Organization [facility] Address 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 [place], [place] [address] Admit Date: 12/16/2008 KEYSHA AREVALO Sex: F Admit Prov: MARISOL BOYD Date: 1975 Primary Care Prov: PCP, NONE CMRN: [id number] [facility] [id number] IMAGING SERVICES Ordering Prov: MARISOL BOYD Accession Number: [id number] Interpretation BILATERAL SCREENING DIGITAL MAMMOGRAMS WITH COMPUTER [...] [facility]K Procedure Note Camilla Michel - 12/18/[address] [address] Admit Date: 12/16/2008 KEYSHA AREVALO Sex: F Admit Prov: MARISOL BOYD Date: 1975 Primary Care Prov: PCP, NONE CMRN: [id number] [facility] [id number] IMAGING SERVICES Ordering Prov: ASIMMARISOL Blevins Interpretation BILATERAL SCREENING DIGITAL MAMMOGRAMS WITH COMPUTER [...] mammogram documented in this encounter Care Teams Parent Partner Relationship Specialty Start Date End Date Not Found, Stl NO ADDRESS ON FILE PCP - General 09/12/12 documented as of this encounter
--- OUTSIDE RECORDS SUMMARY | 2025-09-26 11:39 | XMS_ITS | Patient Health Record ---
Author Organization [facility] Address [address] [place] [id number] Care Team Providers Care Shoe Sewing Machine Operator And Tender Name Role Phone Dr. Lay Bauer Primary Care Provider [phone] Allergies Allergen (clinical drug ingredient) Drug/Non Drug Allergy documented on EMR Reaction Allergy Type Onset Date Status coconut allergenic extract Coconut (Diagnostic) Unknown Drug Allergy 01/28/2022 Active Results Component Value Reference Range Flag Notes T4 Free Reviewed date:03/28/2025 09:34:49 PM Interpretation: Performing Lab: Notes/Report: Test Performed by: [place] [address] Child Day Care Provider: Tyler Pike DO T4 Free 0.74 0.60-1.70 ng/dL CBC w Auto Diff Reviewed date:03/28/2025 09:34:49 PM Interpretation: Performing Lab: Notes/Report: Test Performed by: [place] [id number] Child Day Care Provider: Tyler Pike DO WBC 7.9 4.0-11.7 K/mcL RBC 4.36 3.80-5.41 x10*6/mcL Hgb 13.7 11.3-15.2 g/dL Hct 40.8 33.2-45.3 % MCV 93.5 79.5-98.1 fL MCH 31.3 27.0-34.2 pg MCHC 33.5 31.8-35.3 g/dL RDW 11.9 12.0-16.4 % L Platelets 272 149-393 K/mcL MPV 8.8 7.0-11.0 fL Neutro Auto 68.2 45.3-79.0 % Lymph Auto 23.9 11.8-45.9 % [place] Auto 5.4 4.4-12.0 % Eosinophil Auto 1.8 0.0-6.3 % Basophil Auto 0.7 0.2-1.6 % Neutro Absolute 5.4 2.4-8.4 x10*3/mcL Lymph Absolute 1.9 0.8-3.7 x10*3/mcL [place] Absolute 0.4 0.3-1.1 x10*3/mcL Eos Absolute 0.1 0.0-0.5 x10*3/mcL Baso Absolute 0.1 0.0-0.1 x10*3/mcL Comprehensive Metabolic Pane l Reviewed date:03/28/2025 09:34:49 PM Interpretation: Performing Lab: Notes/Report: Test Performed by: [place] [address] Child Day Care Provider: Tyler Pike DO Glucose Lvl 111 74-109 mg/dL H ADA risk stratification for diabetes <100 mg/dL = Normal 100-125 mg/dL = Increased risk for future diabetes >=126 mg/dL = Diabetes, if on more than one testing occasion BUN 16 7-25 mg/dL Creatinine Lvl 1.11 0.60-1.20 mg/dL eGFR CKD-EPI 61 >=90 mL/min/1.73 m2 L The CKD-EPI equation is validated in individuals 18 years of age and older. It is less accurate in patients with extremes of muscle mass, restriction of dietary protein, ingestion of creatine, extra-renal metabolism of creatinine, or treatment with medications that affect renal tubular creatinine secretion. GFR Categories in Chronic Kidney Disease (CKD) GFR GFR (mL/min/1.73 Category: square meters): Interpretation: G1 90 or greater Normal or high* G2 60-89 Mild decrease* G3a 45-59 Mild to moderate decrease G3b 30-44 Moderate to severe decrease G4 15-29 Severe decrease G5 14 or less Kidney failure *In the absence of evidence of kidney damage, neither GFR category G1 nor G2 fulfill the criteria for CKD (Kidney Int Suppl 2013;3:1-150) Calcium Lvl 9.3 8.6-10.3 mg/dL Sodium Lvl 140 136-145 mmol/L Potassium Lvl 3.9 3.5-5.1 mmol/L Chloride Lvl 106 98-107 mmol/L CO2 28 21-31 mmol/L Anion Gap 6.3 <=16.0 mmol/L Alk Phos 45 34-104 unit/L Bilirubin Total 0.5 0.3-1.0 mg/dL Albumin Lvl 4.4 3.5-5.2 g/dL Protein Total 6.8 6.4-8.9 g/dL Albumin/Globulin Ratio 1.8 1.1-2.5 ALT 14 7-52 unit/L AST 15 13-39 unit/L Lipid Panel {Chol, Trig, HDL , LDL} Reviewed date:03/28/2025 09:34:49 PM Interpretation: Performing Lab: Notes/Report: Test Performed by: [place] [id number] Child Day Care Provider: Tyler Pike DO Cholesterol Total 183 <=199 mg/dL Triglycerides 94 0-149 mg/dL Triglyceride Reference Ranges: <150 mg/dL Normal 150 - 199 mg/dL Borderline High 200 - 499 mg/dL High >=500 mg/dL Very High LDL 104 <=100 mg/dL H LDL Optimal: <100 Near or above optimal: 100-129 Borderline high: 130-159 High: 160-189 Very high: >=190 Coronary heart disease risk factors should be considered when determining LDL goals. Please refer to ATPIII guidelines for further information. If LDL is not calculated, please call the lab to add on the direct LDL methodology, if desired. HDL 61 23-92 mg/dL Non HDL Cholesterol 122 <=130 mg/dL Chol/HDL 3 0-5 Thyroid Stimulating Hormone Reviewed date:03/28/2025 09:34:49 PM Interpretation: Performing Lab: Notes/Report: Test Performed by: [address] [address] Child Day Care Provider: Tyler Pike DO TSH 0.70 0.45-5.33 mcIU/mL Reason For Referral No Information Medications Medication SIG (Take, Route, Frequency, Duration) Notes Start Date End Date Status Allergy oral; Duration: 0 *Pick strength-form from [employer] for eRX* 06/16/2023 Active Slynd 4 MG Tablet 1 tablet Orally Once a day Active buPROPion HCl ER (XL) 150 MG Tablet Extended Release 24 Hour 1 tablet in the morning Orally Once a day; Duration: 90 days Active valACYclovir HCl 500 MG Tablet 1 tablet Orally Once a day; Duration: 90 days Active Immunizations Vaccine Route Administration Date Status Dioni Porter Covid-19 Vaccine 1st dose IM Intramuscular 11/13/2020 Administered Source VFC Code: : Moderna Covid-19 Vaccine 1st dose IM Intramuscular 12/16/2020 Administered Source VFC Code: : Moderna Covid-19 Vaccine 1st dose Unknown 08/19/2021 Administered Source VFC Code: : Tdap IM Intramuscular 03/30/2023 Administered ,sourc ename : New immunization record ,immstatus : Complete Social History Tobacco Use: Social History Observation Description Date Details (start date - stop date) Never Smoker NA - NA Sex Assigned At : Social History Observation Description Sex Assigned At Female Social History Household: Social Info Question Answer Notes Household Marital status: Tobacco Use: Social Info Question Answer Notes Tobacco Control (Standard) Tobacco use: Nonsmoker Problems Problem Type SNOMED Code ICD Code Onset Dates Problem Status W/U Status Risk Notes Problem Gastro-esophageal reflux disease without esophagitis (542143932) Gastro-esophageal reflux disease without esophagitis (K21.9) 08/04/20 21 Active confirmed Problem Attention deficit hyperactivity disorder, predominantly inattentive type (disorder) (18560142) Attention and concentration deficit (R41.840) 08/29/20 24 Active confirmed Problem Abnormal findings on diagnostic imaging of breast (580439131) Other abnormal and inconclusive findings on diagnostic imaging of breast (R92.8) 08/20/20 24 Active confirmed Problem Blood chemistry abnormal (494821311) Other specified abnormal findings of blood chemistry (R79.89) 04/02/20 24 Active confirmed Problem Laboratory test result abnormal (782369541) Abnormal levels of other serum enzymes (R74.8) 03/31/20 23 Active confirmed Problem Pain in limb (34795344) Pain in right lower leg (M79.661) 02/26/20 17 Active confirmed Problem Alopecia (74431192) Nonscarring hair loss, unspecified (L65.9) 03/30/20 23 Active confirmed Problem Insomnia (712409667) Insomnia, unspecified (G47.00) 08/04/20 21 Active confirmed Problem Moderate recurrent major depression (22624707) Major depressive disorder, recurrent, moderate (F33.1) 08/04/20 21 Active confirmed Problem Recurrent major depression in remission (01376347) Major depressive disorder, recurrent, in partial remission (F33.41) 03/30/20 23 Active confirmed Vital Signs Heart Rate 81 /min 04/03/2025 Temperature 98.2 degrees Fahrenheit 04/03/2025 Respiratory Rate 18 /min 04/03/2025 Height-cm 163.83 cm 04/03/2025 Oximetry 98 % 04/03/2025 Blood pressure diastolic 70 mm Hg 04/03/2025 Weight-kg 79.2 kg 04/03/2025 Height 64.50 in 04/03/2025 Blood pressure systolic 102 mm Hg 04/03/2025 Weight 174.6 lbs 04/03/2025 BMI 29.5 kg/m2 04/03/2025 Encounters Encounter Location Date Provider Diagnosis [address] [address] 10/18/2024 Dr. Lay Bauer Abnormal mammogram R92.[address] [address] 04/03/2025 Dr. Lay Bauer Adult general medical exam Z00.00 ; Dense breast tissue R92.30 ; Abnormal cervical Papanicolaou smear, unspecified abnormal pap finding R87.619 and Major depressive disorder with single episode, in full remission F32.[address] [address] 09/27/2024 Dr. Lay Bauer Abnormal mammogram R92.[address] [address] 03/28/2025 Dr. Lay Bauer Encounter for general adult medical examination without abnormal findings Z00.00 Assessments Encounter Date Diagnosis (ICD Code) Assessment Notes Treatment Notes Treatment Clinical Notes Section Notes 03/28/2025 Encounter for general adult medical examination without abnormal findings (ICD-10 - Z00.00) 10/18/2024 Abnormal mammogram (ICD-10 - R92.8) 09/27/2024 Abnormal mammogram (ICD-10 - R92.8) 04/03/2025 Adult general medical exam (ICD-10 - Z00.00) Discussed routine vaccines 04/03/2025 Dense breast tissue (ICD-10 - R92.30) 04/03/2025 Abnormal cervical Papanicolaou smear, unspecified abnormal pap finding (ICD-10 - R87.619) 04/03/2025 Major depressive disorder with single episode, in full remission (ICD-10 - F32.5) 10/18/2024 Other Breast Masses - Presence of several suspect spots on the left breast and 2 on the right. Two oval hypoechoic masses on the left breast, 3.5 cm from the nipple, possibly fibroadenomas. Dense breast tissue decreases mammogram sensitivity. - Recommend a clinical breast exam by a mold insert changer. If palpable, a biopsy is advised. If [...] ordering a biopsy or MRI if the mold insert changer deems it necessary. Appointments - Schedule a clinical breast exam with a mold insert changer to assess the need for a biopsy or further imaging. 04/03/2025 Other Breast cancer surveillance: - High hereditary risk and dense breast tissue; ongoing surveillance with mammogram and MRI. - Continue alternating mammogram and MRI every 6 months as recommended by gynecology. This approach is due to dense breast tissue, which limits mammogram sensitivity, and MRI provides additional detail. Insurance coverage and coding were discussed, with the plan to use risk factor coding to maximize coverage for preventative imaging. Patient to continue follow-up with gynecology and notify if any changes in breast symptoms. Abnormal Pap smear with precancerous cervical cells: - Presence of precancerous cervical cells; HPV negative at present; prior positive HPV three years ago. - Colposcopy scheduled for end April 2025. The colposcopy will allow direct visualization and biopsy of abnormal areas. Further management, including possible LEEP procedure or hysterectomy, will be determined based on colposcopy and biopsy results. The rationale for this sequence is to confirm the grade and extent of abnormal cells before proceeding to more invasive treatment. If biopsy shows high-grade changes or cancer, more definitive treatment may be needed. Patient understands the plan and will follow up as scheduled. Discontinuation of Wellbutrin: - Stable mood, no current depressive or anxiety symptoms; patient wishes to discontinue Wellbutrin. - Discontinue Wellbutrin. There is no lower dose, so patient should stop the medication rather than taper. Monitor for any changes in mood, energy, or other symptoms over the next 1-2 months. Patient advised to contact the office if any issues arise or if she wishes to restart medication in the future. Reassured that it is not harmful to stop and can be restarted if needed. Perimenopausal symptoms: - Perimenopausal symptoms present (night sweats, sleep disturbance), no hot flashes. Not a candidate for estrogen therapy due to clot risk. - Continue current management. Slynd (progesterone-only pill) has been effective for menstrual suppression and is appropriate given history of DVT. Discussed that SSRI could be considered in the future if symptoms become more troublesome, especially for hot flashes or mood. Patient to monitor symptoms and report any significant changes. Weight gain and difficulty with weight loss: - Weight gain attributed to perimenopausal changes and lifestyle factors. - Patient to initiate group exercise classes when new gym opens in May 2025. Discussed that motivation is better with group classes and a set schedule. Dietary and lifestyle modifications encouraged, including more structured meal planning when children are not present. Medical weight loss options (GLP-1 agonists, phentermine, topiramate, Wellbutrin combinations) discussed as potential future options if lifestyle changes are insufficient. Patient prefers to try exercise and dietary changes first before considering medication. Will follow up if considering medication in the future. Discussed that BMI is currently 29, and that muscle mass may affect BMI interpretation. -Phentermine would be appropriate choice first. Labs and follow-up: - Recent labs reviewed; no concerns at this time. Blood sugar was non-fasting and not concerning. Cholesterol and kidney function stable (renal function worked up previously by neprhology) - No need for repeat labs until next annual exam unless new symptoms arise. Patient may request earlier testing if desired. Plan Of Treatment Pending Test Test Name Order Date Ultrasound : Breast, right 08/21/2025 Ultrasound : Breasts, bilateral 09/27/20 24 Mammogram (Bilateral), Diagnostic comput er aided 09/27/2024 MG DIAGNOSTIC RT DIGI 08/21/2025 Insurance Providers Payer Name Payer Address Payer Phone Subscriber Number Group Number Insured Name Patient Relationship to Insured Coverage Start Date Coverage End Date [employer] [address] [place] [address] [id number] Livia Saenz Self - patient is the insured 4 4 [employer] [address] [place] [address] [id number] Livia Saenz Self - patient is the insured 5 Medical (General) History Medical History History ICD Code Major depressive disorder, recurrent, mo derate Major depressive disorder, recurrent, mo derate F33.1 Insomnia, unspecified G47.00 Allergic rhinitis, unspecified J30.9 Gastro-esophageal reflux disease without esophagitis K21.9 Nonscarring hair loss, unspecified L65.9 Attention and concentration deficit R41. 840 Surgical History Surgery Date(Month/Year) Dr Adeel Pozo - total la paroscopic hysterectomy with bilateral salpingectomy 09/18/2025
--- OUTSIDE RECORDS SUMMARY | 2025-09-26 11:39 | XMS_ITS | Continuity of Care Document ---
Author Organization [facility], [facility] Address [address] [place] [address] Care Team Providers Care Center Rep Name Role Phone [facility] Wire Threader Assessment No assessment recorded. Plan of Treatment Reminders Order Date Submit Date Provider Last Modified By Organization Details Last Modified Time Details Appointments COCKTAIL LOUNGE MANAGER EST 2025 02:00P Scot Pozo MD Not available Not available Not available Lab None recorded. Referral None recorded. Procedures None recorded. Surgeries None recorded. Imaging None recorded. Medication Orders IBU 800 mg tablet 2024 025 [facility] [address], [address] [place] [address], [id number], 09/26/2025 09:26:24 hydroxyzi ne HCl 25 mg tablet 2024 025 [facility] [address], [address] [place] [address], [id number], 09/25/2025 14:06:19 metronida zole 500 mg tablet 2024 025 [facility] [address], [address] [place] [address], [id number], 09/26/2025 09:26:31 oxycodone -acetamin ophen 5 mg-325 mg tablet 2024 025 [facility] [address], [address] [place] [address], [id number], 09/25/2025 14:12:36 Patient TargetsNo targets recorded. Patient InstructionsNo instructions recorded. Reason for Referral None Reported. Problems Name Problem SNOMED Code Status Onset Date Resolution Date Notes Provider Name and Address Organization Details Recorded Time Uses contrace ption 80181335 Completed 201611/26/2017 Contrace ption advice, other method; Location : None Severity : Moderate Progress : Stable Added By: Allison Lemus Add to Current Problems : NO ProblemS tatus: Resolve Not Available [facility] 1 01:27:04 Contrace ptive sheath status 811979111 Completed 201611/26/2017 Contrace ption advice, other method; Location : None Progress : Stable Added By: Allison Lemus Add to Current Problems : NO ProblemS tatus: Resolve Encounte r for initial prescrip tion of other contrace ptives; Progress : Stable Added By: Allison Lemus Add to Current Problems : NO ProblemS tatus: Resolve Not Available [facility] 2 20:48:06 Mammogra phy abnormal 138973821 Completed 201703/24/2020 Abnormal mammogra m, unspecif ied; Location : None Progress : Stable Added By: Bill Archer Add to Current Problems : YES ProblemS tatus: Current Abnormal mammogra m, unspecif ied; Progress : Stable Added By: Bill Archer Add to Current Problems : NO ProblemS tatus: Resolve Not Available [facility] 2 20:48:06 Insertio n of intraute rine contrace ptive device done [id number] 9109 Completed 201703/24/2020 Encounte r for insertio [...] ProblemS tatus: Resolve Not Available [facility] 1 19:39:44 Problem Notes None recorded. Procedures Surgical History Date Name Laterality Status Provider Name and Address Organization Details Recorded Time 09/18/20 25 robot assisted laparoscopic total hysterectomy completed Adeel Pozo MD [address] [place] [address], [phone], [facility] IV 09/25/2025 14:31:17 08/10/20 25 Most Recent Mammogram completed Joanne Hargrove [facility] IV 09/25/2025 14:02:35 03/25/20 25 Date of Last Pap Smear completed [facility] IV 05/06/2025 09:55:10 04/19/20 24 Colposcopy - Cervix completed Belen Martini MD [address] [place] [address], [phone], [facility] IV 04/19/2024 20:12:47 04/19/20 24 IUD Removal completed Belen Martini MD [address] [place] [address], [phone], [facility] IV 04/19/2024 20:12:56 02/08/20 23 Date of Last Colonoscopy completed Regina Gomez [facility] IV 03/25/2025 15:43:55 03/24/20 22 Colposcopy - Cervix completed Nicci Okeefe ANÍBAL [address] [place] [address], [phone], [facility] IV 03/28/2022 19:01:31 C Section completed Nicci Okeefe AN[facility] [address] [place] [address], [phone], [facility] IV 02/27/2023 10:46:23 extraction of wisdom tooth completed [facility] IV 05/06/2025 09:57:17 colposcopy completed [facility] 05/06/2025 09:57:38 Imaging Results None recorded. Procedure Notes None recorded. Medical Equipment None Reported. Allergies Allergen ID Allergen Name Allergen Category Reaction Reaction Severity Criticality Documentation Date Start Date Code Code System Note Provider Name and Address Organization Details Recorded Time 757853 house dust allergeni c extract environme nt,medica tion Not available Not available Not available 05/06/2025 28315 9 RxNorm Stephanie oliveira, [facility] 5 09:51:46 729949 cat dander environme nt Not available Not available Not available 05/06/2025 [facility] 09:51:46 339033 mold extract environme nt Not available Not available Not available 05/06/2025 49312 8 RxNorm Stephanie oliveira, [facility] 5 09:51:46 269561 coconut allergeni c extract food,medi cation Not available Not available Not available 08/12/20252021 72851 1 RxNorm Not Available [facility] - External Data Service - prod 5 [...] Ortho Cyclen 28 35mcg/0. 25mg Tablet RxNorm: 607415 Allow Substitu tion: True Refill Denied: No Not Available Not Available Not Available Zoloft 03/24 completed Zoloft RxNorm: 25357 Allow Substitu tion: True Refill Denied: No Refill DateOccu rred: 11/28/19 Edited by: Mariana Spivey ) on 03/24/20 Stopped by: [email or web address]( Mariana Lee ) on 03/24/20 Not Available Not Available Not Available acyclovir 03/24 completed Acyclovi r RxNorm: 206137 Allow Substitu tion: True Refill Denied: No Refill DateOccu rred: 11/28/19 Edited by: Mariana Spivey ) on 03/24/20 Stopped by: jayesh( Mariana Lee ) on 03/24/20 Not Available Not Available Not Available aspirin active Not Available Not Avail able Not Available Zyrtec active Not Available Not Availa ble Not Available Valtrex 02/17 completed Valtrex RxNorm: 444652 Refill Denied: No Refill DateOccu rred: 03/24/20 Edited by: Mariana Spivey ) on 03/24/20 Stopped by: Mariana Spivey ) on Not Available Not Available Not Available Wellbutri n SR 03/24 completed Wellbutr in SR RxNorm: 801465 Allow Substitu tion: True Refill Denied: No Refill DateOccu rred: 11/28/19 Edited by: Mariana Spivey ) on 03/24/20 Stopped by: Mariana Spivey ) on Not Available Not Available Not Available Mirena 11/05 completed Mirena RxNorm: 6373 Allow Substitu tion: True Refill Denied: No Refill DateOccu rred: 11/28/19 19 Edited by: jayesh( Mariana Lee ) on 03/24/20 20 Stopped by: jayesh( Mariana Lee ) on Not Available Not Available Not Available Dasetta (28) 1 mg-35 mcg tablet take 3 pills daily x 3 days, then 2 pills daily for 3 days, then on pill daily for the remainde r of the active pills. 11/17 completed Dasetta 35 35mcg/1m g Tablet RxNorm: 5427677 Allow Substitu tion: True Refill Denied: No [...] Updated DateTime 08/26/2025 162.56 cm 31 kg/m2 33698.06 g 126/76 mm[Hg] Sandra Thorne [facility] [employer] IV 08/26/2025 10:35:25 Social History Question Answer Notes LastModified by Organizat ion Details LastModified Time Tobacco Smoking Status Never Smoker Mariana oliveira, [facility] [employer] 02/17/2022 09:51:17 If You Are , [...] Or The Highest Degree You Have Received? XI42525-4 Information not available 02/23/2023 How Many Children Do You Have? 3 Information not available 02/17/2022 Are There Any Occupational Health Risks Where You Work? [employer] [facility] [facility] Information not available 05/06/2025 What Is Your Relationship Status? Information not available 01/27/2024 Are You Sexually [...] available 02/17/2022 Are you currently employed? Yes [email or web address] Information not available 02/23/2023 What is your [...] Colon Cancer N Cytomegalovirus N Hyperthyroidism N Blood Transfusion N MRSA N Herpes (HSV) Y Breast Cancer N Lung Cancer N Depression Y Hypothyroidism N Incontinence N Panic Attacks N Neurological Disorder N Deep Vein Thrombosis Y Anxiety Disorder N Autoimmune disease N Arthritis N Shingles N Tuberculosis/Positive PPD N Polycystic Ovarian Syndrome N Cervical Cancer N Chlamydia N Hematuria N Stroke N Varicosities N Seasonal allergies N Crohn's Disease N Alzheimer's/Dementia N COPD/Emphysema N Endometriosis N HPV/Genital Warts N IBS (Irritable Bowel Syndrome) N History of Abnormal Pap Y High Cholesterol N Liver Disease N Kidney Infection N Fibromyalgia N Ulcer N Kidney Disease N HIV N Gallbladder disease N Von Willebrand disease N Sickle Cell Disease/Trait N ADD/ADHD N Eating Disorder N Diabetes Mellitus (non-insulin dependent ) N Anemia N Ovarian Problems N Multiple Sclerosis N Gonorrhea N Frequent Urinary Tract infections N Osteopenia N Headaches/migraines N GERD (reflux) N Ovarian Cancer N Diabetes (insulin dependent) N Seizures/Epilepsy N Fibroids N Asthma N Heart Attack N Endometrial Cancer N Lupus N Rubella N Blood Clotting Disorder N [...] ICD10 Code Diagnosis IMO Codes Diagnosis Note [id number] Adeel Pozo MD [facility] [address] [place] [address] 08/26/2025 10:28:53 09/16/2025 09:05:55 Menometrorrhagia 544018492 N92.1 [id number] On IUD and Slynd, did not have [...] squamous intraepithelial lesion on cervical Papanicolaou smear [id number] 9105 R87.612 [id number] Discussed colpo and will forgo and proceed with the surgery as scheduled. Health Concerns Section Related Observation LastModified by Organization Detai ls LastModified Time None Recorded Concern Status LastModified by Organization Details LastModified Time None Recorded Payers Encounter Date Sequence Insurance Name Policy Number Policy Eagle Covered Member ID Eagle Member ID Guarantor Name 08/26/2025 1 [place] [id number] Livia Saenz [id number] Livia Denton Dany Notes Date Note Type Note Provider Name and Address Organization Details Recorded Time 08/26/2025 text/html Pre-Op OBGYN HPIReported by PatientHPIFor [...] irregular cycles / pap lgsil). For location, ([facility] on 09/18/2025).ROS as noted in the HPI The patient verbally consented to documentation via virtual scribe for this encounter. Livia 50 y/o here for pre-op visit. She is scheduled to undergo RTHL/BSO on 09/18/25 at [facility] secondary to menorrhagia with irregular cycles/LGSIL. She has a history of chronic DVT and states she is currently not on medication. She sees her soft sugar operator head and states she was previously taking Eliquis. Adeel Pozo MD [address] [place], [address], [facility] 09/15/2025 17:44:44 OBGyn Episode No OBEpisode recorded.
--- OUTSIDE RECORDS SUMMARY | 2025-09-26 11:40 | XMS_ITS | Encounter Summary ---
Author Organization [facility] Address 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
--- OUTSIDE RECORDS SUMMARY | 2025-09-26 11:40 | XMS_ITS | Encounter Summary ---
Author Organization [facility] Address 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
--- OUTSIDE RECORDS SUMMARY | 2025-09-26 11:40 | XMS_ITS | Encounter Summary ---
Author Organization [facility] Address [address] [place] [address] Care Team Providers Care Rug Sizer Name Role Phone Not Found, Stl Primary Care Provider Unavailabl e Encounter Details Date Type Department Care Team (Late st Contact Info) Description 09/11/2007 Outpatient Historical [facility] [address] [place] [phone] Clayton Garsia MD [address] [facility] [address] [place] [address] Social History Tobacco Use Types Packs/Day Years Used Date Smoking Tobacco: Never Assessed Comments Unknown Sex and Gender Information Value Date Recorded Sex Assigned at Not on file Legal Sex Female 5:28 AM AREA SAFETY MANAGER Gender Identity Not on file Sexual Orientation Not on file documented as of this encounter Plan of Treatment Not on file documented as of this encounter Visit Diagnoses Not on filedocumented in this encounter Care Teams Rug Sizer Relationship Specialty Start Date End Date Not Found, Stl NO ADDRESS ON FILE PCP - General 09/12/12 documented as of this encounter
--- OUTSIDE RECORDS SUMMARY | 2025-09-26 11:40 | XMS_ITS | Clinical Summary ---
Author Organization [facility] Address [address] [place] [address] Phone Care Team Providers Care Mounter Name Role Phone Not Found, Stl Primary Care Provider Unavailabl e Family History Medical History Relation Name Comments Breast Cancer Neg Hx Social History Tobacco Use Types Packs/Day Years Used Date Smoking Tobacco: Never Assessed Comments Unknown Sex and Gender Information Value Date Recorded Sex Assigned at Not on file Legal Sex Female 5:28 AM DIETARY SUPERVISOR Gender Identity Not on file Sexual Orientation Not on file Plan of Treatment Health Maintenance Due Date Last Done Comments DTAP/TDAP/TD VACCINES (1 - Tdap) 1996 HEPATITIS B VACCINES (1 of 3 - 19+ 3-dose series) 1996 HPV/Cotest (21-29) 1998 CERVICAL CANCER SCREENING 2007 HPV/Cotest (30-65) 2007 PAP SMEAR 2007 BREAST CANCER SCREENING 2017 12/22/2009, 12/16 COLORECTAL SCREENING 2022 Colorectal Cancer Screening 2022 FIT-DNA Q 3 years 2022 FIT/FOBT Q 1 year 2022 Flex Sig/CT Colonography Q 5 years 2022 INFLUENZA VACCINE (#1) 2025 Procedures Procedure Name Priority Date/Time Associated Diagnosis [...] followup OVERALL ASSESSMENT: BIRADS 1 - Negative us Cris Boyd MD MAMMO ORDERABLES Final Res ult from Last 3 Months or Most Recently Relevant to Health Maintenance Insurance BCBS BLUE ACCESS/TRUE BLUE PPO Care Teams Mounter Relationship Specialty Start Date End Date Not Found, Stl NO ADDRESS ON FILE PCP - General 09/12/12
--- OUTSIDE RECORDS SUMMARY | 2025-09-26 11:40 | XMS_ITS | Encounter Summary ---
Author Organization [facility] Address 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
== END 2025-09-26 10:38 | disposition home or self-care (01) ==
LOC: CHSIMG 10:39
PROVIDERS: PCP Family Medicine; Visit Provider Family Medicine
DX: R92.8 Other abnormal and inconclusive findings on diagnostic imaging of breast (principal)
CPT/HCPCS: 77061; 77065; G0279